=== PATIENT | male | born 1970 | race Caucasian/White ===

== ENCOUNTER 2020-12-12 10:04 | Outpatient (CLI) | payer BC, SELFPAY ==
--- NOTE | 2020-12-12 10:19 | US_ITS ---
WS: [id number] RIGHT UPPER QUADRANT ULTRASOUND HISTORY: EPIGASTRIC ABDOMINAL PAIN/ELEVATED ALT MEASUREMENT COMPARISON: None available. Liver: 12.7 cm in length. Normal size liver with no bile duct dilatation. There are numerous ill-defi sudhir slightly hypoechoic and hyperechoic lesions throughout the liver. Some of these lesions are causi ng bulging of the liver contour. Hepatic masses range in size from 1 cm with the largest measuring 3. 2 x 3.1 x 2.3 cm along the anterior surface of the liver. RIGHT hepatic lesion. Gallbladder: Normally distended gallbladder with no stones or wall thickening. CBD: Not visualized. No bile duct dilatation is evident. Pancreas: Poorly visualized due to large amount of shadowing from the GI tract. Right kidney: 12.3 cm in length. Normal size and echogenicity. No hydronephrosis or mass. Aorta and IVC: Unremarkable abdominal aorta and IVC. No ascites. US/US abdomen limited 83920 IMPRESSION: 1. Multiple hepatic lesions with the largest measuring 3.2 x 3.1 x 2.3 cm. Hig hly suspicious for metastatic liver disease. Recommend follow-up CT abdomen and pelvis with IV and oral contrast. 2. Negative gallbladder.
== END 2020-12-12 10:05 | disposition home or self-care (01) ==
PROVIDERS: PCP Physician Assistant Medical; Visit Provider Family Medicine
DX: R10.13 Epigastric pain (principal); R74.01 Elevation of levels of liver transaminase levels; K76.9 Liver disease, unspecified
CPT/HCPCS: 76705

== ENCOUNTER → 2020-12-19 13:06 | Outpatient (BNVA) | payer BC, SELFPAY | PROVIDERS: PCP Physician Assistant Medical; Visit Provider Surgery | DX: R10.9 Unspecified abdominal pain (principal); Z20.822 Contact with and (suspected) exposure to COVID-19 | CPT/HCPCS: 87635 ==

== ENCOUNTER 2020-12-24 06:10 | Day surgery (SDC) | payer BC, SELFPAY ==
--- NOTE | 2020-12-24 06:40 | W.PM.OPSUD ---
Surgery/Procedure H&P Update DATE OF PROCEDURE: December 24, 2020 DATE H&P PERFORMED: 12/19/20 H&P UPDATE INFORMATION: I have reviewed H&P completed within last 30 days, I have examined patient prior to procedure and No changes to prior documentation PREOP DIAGNOSIS: Bleeding per rectum And change in bowel habits PRIMARY INDICATION FOR PROCEDURE: The same PLANNED PROCEDURE: Operation Date: 12/24/20 07:00 Proposed Procedures p EGD 86855 R10.9(Not Applicable) - Tyrell Dickson MD s Colonoscopy 04469 R19.7(Not Applicable) - Tyrell Dickson MD
[2020-12-24] MEDS: sodium chloride 0.9% 1,000 ML 30 ML IV (06:41)
[2020-12-24 06:46] VITALS: BP 132/80; PULSE 70; RESP 18; TEMP 37; O2SAT 95
--- NOTE | 2020-12-24 06:49 | ANES.PREANE2 ---
Pre-Anesthetic Assessment Pre-Anesthetic Assessment: Height/Weight: Height 1.78 m Weight 106.594 kg Preop Diagnosis: Bleeding per rectum And change in bowel habits Proposed Procedure: Operation Date: 12/24/20 07:00 Proposed Procedures p EGD 78728 R10.9(Not Applicable) - Tyrell Dickson MD s Colonoscopy 84880 R19.7(Not Applicable) - Tyrell Dickson MD Familial anesthetic complications: none Was Beta Slava taken within 24 hours: N/A Was Clonidine taken within 24 hours: N/A Last Intake: 22:00 Social: Social History: No alcohol and No tobacco Exam: Pre-Anes Outpt Exam: alert, oriented x 3, clear to auscultation bilaterally and regular rate & rhythm Airway: Submandibular: WNL Cervical ROM: WNL MP: 3 Dentition: Full Pulmonary: Pulmonary: None reported CV/HEM: CV/HEM: HTN : : None reported Hepatic: Hepatic: None reported GI: GI: GERD (controlled) Metabolic: Metabolic: None reported Musc/skel: Musc/skel: None reported Neuropsych: Neuropsych: None reported Anesthetic Plan: ASA status: 2 Anesthesia: MAC Meds/Allergies Current Medications: Current Medications Generic Name Dose Route Start Last Admin Trade Name Freq PRN Reason Stop Dose Admin Sodium Chloride 1,000 mls @ 30 ml s/hr 12/24/20 06:30 12/24/20 06:41 Sodium Chloride 0.9% IV 12/25/20 06:29 30 mls/hr .Q24H MARY Administration Data Anesthesia Cardiac Studies: No Data to Display
[2020-12-24 07:34] VITALS: BP 101/63; PULSE 67; RESP 16; TEMP 36.3; O2SAT 96
[2020-12-24 07:50] VITALS: BP 98/65; PULSE 61; RESP 16; O2SAT 96
--- NOTE | 2020-12-24 08:13 | ANE.PACU2 ---
Inpatient post-anesthesia follow up: Airway intact: Yes Vital signs: Temperature 97.3 F Pulse Rate 61 Respiratory Rate 16 Blood Pressure 98/65 Pulse Oximetry 96 Oxygen Delivery Me thod Room Air Oxygen Flow Rate Fraction of Inspir ed Oxygen Hydration adequate: Yes Nausea and vomiting: No Pain level: 1 Mental status: Baseline
[2020-12-24 08:25] LABS: Carcinoembryonic Antigen 16.6 ng/mL (0.0-4.7); Tumor Marker Alpha Fetoprotein 1.3 ng/mL (0-8.3)
[2020-12-24 08:54] LABS: Cancer Antigen 19 9 1.14 U/mL (0-35)
[2020-12-25 12:26] LABS: H. Pylori / CLO Test Negative
[2020-12-31 13:13] LABS: Miscellaneous Test See Scanned Lab Rpt
== END 2020-12-24 08:13 | disposition home or self-care (01) ==
PROVIDERS: PCP Physician Assistant Medical; Visit Provider Surgery
PROC: 0DJ08ZZ Inspection of Upper Intestinal Tract, Via Natural or Artificial Opening Endoscopic (ICD-10-PCS; CPT 43235; principal; 2020-12-24 07:00)
PROC: 0DJD8ZZ Inspection of Lower Intestinal Tract, Via Natural or Artificial Opening Endoscopic (ICD-10-PCS; CPT 45330; 2020-12-24 07:00)
DX: K62.5 Hemorrhage of anus and rectum (principal); R19.4 Change in bowel habit; K29.70 Gastritis, unspecified, without bleeding; I10 Essential (primary) hypertension
CPT/HCPCS: 43239; 45331; 45335; 82105; 82378; 86301; 87077; 88305; 88360; 96360; J7030

== ENCOUNTER 2020-12-26 10:17 | Outpatient (CLI) | payer BC, SELFPAY ==
--- NOTE | 2020-12-26 17:03 | ONC CON_ITS ---
Dr. Iglesias New Patient Note Patient: Bob Rosario Unit #: [id number]: 1970 Dicatated By: Parker Iglesias M.D.Date of Visit: Dec 26, 2020 Onc MED New Patient/Consult Referring Physician: CHRISTY RICHARDSON Chief Complaint: Colon cancer. 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 He has been in good general health. On 12/07/2020 he had a scheduled follow-up visit with Dr. Monae. At that time he reported recent onset of pain in the epigastric area, and he also had diarrhea with it. He had otherwise been having constipation for a year or more, though intermittently, along with intermittent red blood in the stool. A right upper quadrant abdominal ultrasound on 12/12/2020 showed multiple hepatic lesions, the largest along the anterior surface of the liver measuring 3.2 x 3.1 x 2.3 cm, suspicious for metastatic disease. CT abdomen/pelvis on 12/17/2020 again showed multiple hypoattenuating lesions in the liver, primarily within the right hepatic lobe, consistent with metastases. A 7 mm exophytic cortical nodule on the anterior aspect of the left kidney was too small to fully characterize. Also noted was a small fat-containing right inguinal hernia and prostatomegaly. There is no lymphadenopathy by size criteria. He was referred to Dr. Dickson. He underwent EGD and colonoscopy on 12/24/2020. The EGD showed evidence of gastritis but without evidence of mucosal bleeding. Colonoscopy showed a partially obstructing, large size, malignant appearing mass in the distal sigmoid colon measuring 4 x 4 cm. The scope was not able to be advanced beyond that lesion. A semipedunculated polyp measuring 2 mm x 2 mm was noted in the rectum and was excised by cold forcep. Pathology on the rectal polyp showed tubular adenoma. Biopsy of the rectosigmoid mass showed well differentiated adenocarcinoma. His laboratory studies from 12/24/2020 included a CEA level which was elevated at 16.6 ng/mL. AFP was normal at 1.3 ng/mL and the CA 19-9 was normal at 1.14 U/mL. He is seen for further management. He says he has been feeling good. Recently he has had mild fatigue, but he still has normal activity. ECOG score is zero. His appetite is good. He has no fever or night sweats. He has no shortness of breath, cough, or chest pain. He has not had any further abdominal pain. He does have constipation, and he has not had a bowel movement since his colonoscopy prep. He has no complaints. He has no significant joint or bone pain. He does report having headache off and on. He has no numbness/paresthesia or other focal neurologic symptoms. Past Medical History: His medical history includes hyperlipidemia, hypertension, and prediabetes. Past Surgical History: His surgical/procedural history includes excision of cyst from the neck in 2018, arthroscopic knee surgery bilaterally in 2011, and tonsillectomy in 1975. Medications: Lisinopril (5 mg) Tablet Oral b.i.d., Pantoprazole Sodium (40 mg) Tablet, enteric coated Oral b.i.d. Allergies: Penicillins Social History: Mr. Rosario is . 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 He is a non-smoker. He has had social alcohol use. Family History: Mother of breast cancer at age 50. His father, brother, and a sister are all in good health. There is no history of colon cancer or colon polyps in the family. Review Of Symptoms: Constitutional - He recently has had some mild fatigue, but he still has normal activity tolerance. Appetite is good and weight is stable. No fever, night sweats, or hot flashes. ECOG score is 0, Eyes - No change in vision, ENMT - No hearing loss or tinnitus. No hearing loss or tinnitus. No sinus congestion/drainage. No mouth sores. No sore throat or difficulty swallowing, Hematologic/Lymphatic - No abnormal bruising, Respiratory - No shortness of breath. No cough. No pleuritic pain or hemoptysis, Cardiovascular - No angina pain. No palpitations, Gastrointestinal - No nausea or vomiting. He recently had sharp pain just below the sternum. He is now on treatment with Protonix. He had some diarrhea in association with the abdominal pain. He has otherwise been having constipation and difficulty moving his bowels. He has had no bowel movement since his colonoscopy prep. For the past 6 to 8 months he has intermittently had small amounts of red blood in the stool, Genitourinary (M) - No dysuria or hematuria. No urinary frequency. No urgency or incontinence, Musculoskeletal - No joint or bone pain, Integumentary - No skin rash or other skin changes, Neurologic - He has had headache off and on. He occasionally has brief dizziness, mainly in the mornings. No numbness or tingling. No other focal neurologic symptoms, Psychiatric - Recently he has had some anxiety. No depression. No insomnia. Vital Signs: Performed on Dec 26, 2020 10:47: 0, 0, 0.00, 0.00 sq.m, 96 %, 55 /min (LOW), 18 /min, 125/73 mm(hg), 97.5 F (LOW), and 230.6 lbs (HIGH). Physical Examination: Constitutional - He appears to be in good general health, Eyes - Sclerae nonicteric. Conjunctivae clear, ENMT - No lesions noted in the oral cavity, Neck - No mass or thyromegaly, Hematologic/Lymphatic - No cervical, clavicular, or axillary adenopathy, Respiratory - Lungs are clear with good air movement bilaterally, Cardiovascular - Heart rhythm is regular. There is no murmur, gallop, or rub noted, Abdomen - Soft and non-tender. Liver and spleen are not enlarged. There is no abdominal mass or ascites noted and there is no inguinal adenopathy, Back/Spine - No spine or CVA tenderness noted, Extremities - No edema. Pedal pulses are palpable bilaterally, Integumentary - No rashes. No suspicious skin lesions noted, Neurologic - No focal neurologic deficits noted. Problem List: 1. Well differentiated adenocarcinoma involving the sigmoid colon, by clinical evaluation stage ROMELIA (Tx, Nx, M1a) with CT evidence of multiple metastatic lesions in the liver. 2. Hypertension. 3. Hyperlipidemia. 4. Prediabetes. 5. He had evidence of gastritis by EGD. Problems Addressed with this Encounter and Plan: Patient with well differentiated adenocarcinoma involving the sigmoid colon, by clinical evaluation stage ROMELIA (Tx, Nx, M1a) with CT evidence of multiple metastatic lesions in the liver. He has had constipation and intermittent rectal bleeding associated with the primary tumor, and by colonoscopy the primary tumor was large-sized and partially obstructing. The scope was not able to be passed beyond the mass. The CT findings and CT images were reviewed with the patient and his . I also reviewed the colonoscopy findings and pathology results. We discussed the clinical implications. He has a primary malignancy in the rectosigmoid colon and he has CT evidence of metastatic involvement in the liver. We discussed the fact that in the setting of multiple metastatic lesions this is not considered to be a curable malignancy. Immediate surgery would be indicated for high-grade obstruction, but I would otherwise recommend initiating systemic therapy with modified FOLFOX chemotherapy in combination with Avastin. Surgery may be considered at a later time depending on his response to the chemotherapy and his further clinical course. I reviewed anticipated side effects with the chemotherapy which may include nausea/vomiting, diarrhea, stomatitis, alopecia, fatigue, low blood counts, and neuropathy, among others. There is risk of hypertension, proteinuria, and bowel perforation with the Avastin, which will be added with the 2nd cycle to minimize the perforation risk. At this point he will return to Dr. Dickson for placement of Port-A-Cath venous access device. In the meantime, he will be scheduled for staging PET/CT. I also will request additional pathologic studies, which will include testing for microsatellite instability, PD-L1 assessment, and a next generation sequencing study. I anticipate starting his chemotherapy sometime next week. Signed By: Parker Iglesias M.D. <<Signature on File>>
== END 2020-12-26 10:18 | disposition home or self-care (01) ==
LOC: ONCMED 10:21
PROVIDERS: PCP Physician Assistant Medical; Visit Provider Internal Medicine Medical Oncology
DX: C19 Malignant neoplasm of rectosigmoid junction (principal); C78.7 Secondary malignant neoplasm of liver and intrahepatic bile duct; I10 Essential (primary) hypertension; E78.5 Hyperlipidemia, unspecified; R73.03 Prediabetes; K29.70 Gastritis, unspecified, without bleeding; Z79.899 Other long term (current) drug therapy
CPT/HCPCS: 87635; 99205

== ENCOUNTER 2020-12-31 09:39 | Day surgery (SDC) | payer BC, SELFPAY ==
--- NOTE | 2020-12-31 | SCC_ITS ---
Procedure Done: Right subclavian vein PowerPort placement 11.4 seconds of fluoroscopic guidance, for a cumulative dose of 3.96 mGy, was provided to Dr. Dickson by the radiology department. C-arm images of the chest were saved for the patient's permanent record. [facility], [place]
--- NOTE | 2020-12-31 09:46 | SC_ITS ---
WS: [id number] C-ARM RADIOGRAPHS CHEST; 2 IMAGES HISTORY: Powerport Placement COMPARISON: None available. Intraoperative imaging during Mediport placement. Tip in the distal SVC. SC/C-arm FL for CVA [id number] IMPRESSION: Mediport tip in the distal SVC.
[2020-12-31 10:11] VITALS: BP 132/91; PULSE 75; RESP 18; TEMP 36.6; O2SAT 94
--- NOTE | 2020-12-31 10:18 | ANES.PREANE2 ---
Pre-Anesthetic Assessment Pre-Anesthetic Assessment: Height/Weight: Height 1.78 m Weight 106.594 kg Temp Pulse Resp BP Pulse Ox 97.8 F 75 18 132/91 94 12/31/20 10:11 12/31/20 10:11 12/31/20 10:11 12/31/20 10:11 12/31/20 10:11 Preop Diagnosis: Colon Cancer Proposed Procedure: Operation Date: 12/31/20 11:20 Proposed Procedures p Portacath Placement 83532 k63.89(Not Applicable) - Tyrell Dickson MD Familial anesthetic complications: Requires higher amount to go to sleep Was Beta Slava taken within 24 hours: N/A Was Clonidine taken within 24 hours: N/A Last intake: Intake Last Liquid Date 12/30/20 Last Liquid Time 22:00 Last Solid Date 12/30/20 Last Solid Time 22:00 Social: Social History: No alcohol and No tobacco Exam: Pre-Anes Outpt Exam: alert, oriented x 3, clear to auscultation bilaterally and regular rate & rhythm Airway: Cervical ROM: WNL MP: 3 Dentition: Full CV/HEM: CV/HEM: HTN GI: GI: GERD Anesthetic Plan: ASA status: 2 Anesthesia: MAC Risk of > 500 ml blood loss (7ml/kg in children): No Data Anesthesia Cardiac Studies: No Data to Display
[2020-12-31] MEDS: sodium chloride 0.9% 1,000 ML 30 ML IV (10:24)
--- NOTE | 2020-12-31 10:45 | W.PM.OPSUD ---
Surgery/Procedure H&P Update DATE OF PROCEDURE: December 31, 2020 DATE H&P PERFORMED: 12/19/20 H&P UPDATE INFORMATION: I have reviewed H&P completed within last 30 days, I have examined patient prior to procedure and Changes to prior documentation as noted here (Patient is requiring Port-A-Cath placement to start chemotherapy) CHANGES TO PREVIOUS DOCUMENTATION: Plan of care; After thorough history physical examination and reviewing the chart and reviweing the images iwth my personal intrepretation.I counseled the patient for Port-A-Cath placement, indications, risks including pneumothorax that may require Chest tube(s) placement and potential injury of major vascular structures that may require Thoractomy, benefits,indications and alternatives were all discussed with the patient, patient understands and is interested to proceed. Rationale was carefully and clearly discussed with the patient.Appropriate informed consent have been reviewed and signed. PREOP DIAGNOSIS: Colon Cancer PRIMARY INDICATION FOR PROCEDURE: The same PLANNED PROCEDURE: Operation Date: 12/31/20 11:20 Proposed Procedures p Portacath Placement 99682 k63.89(Not Applicable) - Tyrell Dickson MD
[2020-12-31] MEDS: clindamycin 900 MG/50 ML PREMIX 100 MG IV (12:00)
[2020-12-31] MEDS: heparin, porcine 1,000 unit/mL INJ 10 mL 10000 UNIT IRRIGATION (12:32)
[2020-12-31] MEDS: lidocaine 2% INJ 20 mL INJECTION (12:33)
--- NOTE | 2020-12-31 12:38 | PM.OP ---
Operative Report Date of procedure: December 31, 2020 Pre-op Diagnosis: Colon Cancer Post-op diagnosis: same Procedure Done: Right subclavian vein PowerPort placement Under fluoroscopic guidance was done by me through the procedure Implants: Right subclavian vein PowerPort placed Surgeon: Tyrell Dickson Manager Assisted Living: agricultural research technologistnathalie Shirley Circulating nurse Meena Anesthesia: MAC (Jayce Hayes) Estimated blood loss (mL): 5 Condition: stable Disposition: same day Brief History: 50 years old gentleman with recently diagnosed with history of colon cancer requiring PowerPort to start neoadjuvant chemotherapy. Full H&P and informed consent per chart. Procedure: Patient was identified in the holding area and taken to the operative room and placed in supine position IV propofol was given by the anesthesia provider ,both arms were tucked,Time-out was done verifying the patient's name/date of /planned procedure and destination after the procedure, all were in agreement. SCDs confirmed to be functioning, preoperative antibiotics administered per protocol, and beta hermila protocol was confirmed, appropriate positioning of the patient was done by me. Medications were reviewed to assess for anticoagulant usage. Risks and benefits and prevention of central line associated blood stream infection (CLABSI) were discussed with the patient/CPOA, and a consent was obtained. Monitors were in place and monitored throughout the procedure. All necessary supplies were available prior to start. Hand hygiene was completed prior to starting. Maximum barrier technique was utilized including a sterile gown, sterile gloves with a hat and mask. Site was was prepped with [chlorhexidine] and a full body drape was placed. 5 mL of 2% lidocaine was injected into the skin with a 25 gauge needle. Prep& drape was done under the usual sterile technique, lidocaine 2% was injected at the site of the stick, started by right subclavian vein stick that retrieved venous blood was obtained from the first stick, a guidewire was then threaded and under the guidance of fluoroscopy position was confirmed to be in the IVC and my interpretation, there was no PVC changes, at that point the guidewire was secured to the drapes with a hemostat and the needle was taken out, attention was then deviated towards creation of a pocket for the port were lidocaine 2% was injected using an 15 blade knife skin incision was created dissection using the Bovie to create a pocket for the Port-A-Cath to be accommodated, hemostasis was secured, after the port being appropriately flushed it was inserted into the pocket and a tunneler was used to accommodate the catheter of the port cath to be delivered through the incision first created at the site of the stick, at that point under fluoroscopy an estimated length was measured for the catheter and was cut at the designed level, followed by that a dilator with the sheath introduced onto the guidewire the dilator and the wire were retrieved and the catheter of the port was introduced via the sheath where it was peeled off and the catheter maintained to be in the SVC that was confirmed with fluoroscopy, and the fluoroscopy interpretation was done by me throughout the entire procedure,yet A confirmation was obtained from Dr. Yang radiologist about the tip of the catheter that looked to be in appropriate in good position via the phone was done. The port was kept secured in its pocket,3-0 Vicryl deep subdermal interrupted sutures, skin was then closed by 4-0 Monocryl as subcuticular closure. The stick site was closed by 3-0 Vicryl and 4-0 Monocryl and Dermabond was used followed by dressing. Patient tolerated the procedure well was taken to the recovery area Count was correct at the end of the procedure I was present for the whole entire procedure Position of the catheter was checked with a postoperative chest x-ray and it was in good position without evidence of pneumothorax
--- NOTE | 2020-12-31 12:41 | XR_ITS ---
WS: [id number] Exam: XR chest 1V portable [id number] Date/Time of Exam: 12/31/2020 12:41 PM Reason For Exam: Status post right subclavian vein PowerPort placement The lungs are fully expanded. No infiltrates or pleural effusions. Mild plaque atelectasis in the lef t base. A right subclavian port has been placed and ends at the cavoatrial junction. Unremarkable car diomediastinal structures and regional bony elements. XR/XR chest 1V portable [id number] IMPRESSION: 1. Right-sided subclavian port placement ending at the cavoatrial junction. 2. No acute process.
[2020-12-31 12:47] VITALS: BP 126/72; PULSE 75; RESP 18; TEMP 36.8; O2SAT 92
[2020-12-31 12:50] VITALS: BP 120/77; PULSE 76; RESP 16; O2SAT 93
[2020-12-31 12:55] VITALS: BP 121/81; PULSE 66; RESP 18; TEMP 36.8; O2SAT 93
[2020-12-31 13:00] VITALS: BP 114/85; PULSE 74; RESP 18; TEMP 36.8; O2SAT 93
[2020-12-31 13:12] VITALS: BP 153/92; PULSE 72; RESP 18; TEMP 36.6; O2SAT 98
--- NOTE | 2020-12-31 18:59 | ANE.PACU2 ---
Inpatient post-anesthesia follow up: Airway intact: Yes Vital signs: Temperature 97.8 F Pulse Rate 72 Respiratory Rate 18 Blood Pressure 153/92 Pulse Oximetry 98 Oxygen Delivery Me thod Room Air Oxygen Flow Rate Fraction of Inspir ed Oxygen Hydration adequate: Yes Nausea and vomiting: No Pain level: 3 Mental status: Baseline
== END 2020-12-31 13:45 | disposition home or self-care (01) ==
PROVIDERS: PCP Physician Assistant Medical; Visit Provider Surgery
PROC: (CPT 36561; principal; 2020-12-31 11:00)
DX: C34.90 Malignant neoplasm of unspecified part of unspecified bronchus or lung (principal); I10 Essential (primary) hypertension
CPT/HCPCS: 36561; 71045; 77001; C1788; J1644; J2250; J2704; J3010; J3490; J7030

== ENCOUNTER 2021-01-10 18:48 | Emergency (ER) | payer BC, SELFPAY ==
[2021-01-10] VITALS (7 sets, daily range): BP systolic 122–134; BP diastolic 71–85; PULSE 82–100; RESP 16–18; TEMP 38.4; O2SAT 96–99; BMI 32.5
--- NOTE | 2021-01-10 19:46 | CTR_ITS ---
PROCEDURE INFORMATION: Exam: CT Abdomen And Pelvis With Contrast Exam date and time: 01/10/2021 7:51 PM Age: 50 years old Clinical indication: Abdominal pain; Localized; Patient HX: Lower abd pain, constipation TECHNIQUE: Imaging protocol: Computed tomography of the abdomen and pelvis with contrast. Axial, coronal and sagittal reformatted images were created and reviewed. Radiation optimization: All CT scans at this facility use at least one of these dose optimization techniques: automated exposure control; mA and/or kV adjustment per patient size (includes targeted exams where dose is matched to clinical indication); or iterative reconstruction. Contrast material: OMNI 300; Contrast volume: 95 ml; Contrast route: INTRAVENOUS (IV); COMPARISON: CT abdomen pelvis w con* [id number] 12/17/2020 11:00 AM RADIATION DOSE METRICS: Total DLP (mGy-cm): 1880.41 FINDINGS: Liver: Innumerable low-density hepatic lesions, slightly increased in size and number since the prior study. Gallbladder and bile ducts: No radiodense gallstones. No biliary ductal dilatation. Pancreas: Unremarkable. Spleen: Unremarkable. Adrenal glands: Normal. No mass. Kidneys and ureters: Indeterminate 9 mm exophytic isodense left renal density, similar to prior. No radiodense calculi. No hydronephrosis. Stomach and bowel: Focal area of sigmoid wall thickening with associated luminal narrowing and inflammatory change. No obstruction. No pneumatosis. Appendix: Normal. Intraperitoneal space: Moderate amount of extraluminal gas adjacent to the sigmoid colon. No ascites. No organized collection. Vasculature: Unremarkable. No aneurysm. Lymph nodes: No pathologically enlarged lymph nodes. Urinary bladder: Unremarkable as visualized. Reproductive: Unremarkable. Bones/joints: No acute osseous abnormality. Mild degenerative changes. Soft tissues: Unremarkable. CT/CT abdomen pelvis w con* [id number] IMPRESSION: 1. Sigmoid perforation, likely secondary to underlying colonic malignancy. 2. Hepatic metastatic disease with evidence of slight interval progression. 3. Additional findings, as above. Radiation Dose CTDIVOL = (mGy): DLP = 1880.41 (mGy-cm)
--- NOTE | 2021-01-10 19:53 | ED_ITS ---
HPI - Abdominal Pain General: Chief Complaint: Abdominal Pain Stated Complaint: ab pain Time Seen by Provider: 01/10/21 19:42 Source: patient Mode of arrival: ambulatory Limitations: no limitations History of Present Illness: HPI narrative: 50-year-old male who has a history of sigmoid colon cancer recently diagnosed last month. He starts chemotherapy next week at [facility]. He states that yesterday was having constipation took mag citrate for having bowel movements. He states he started having abdominal pain after that though. He states that his pain is been diffuse in nature and rates it a 5-6 out of 10. He denies any worsening improving factors. He is also been febrile does have a fever here of 101.2. He denies any vomiting. He states he has had some difficulty urinating and some pain with urination. No cough. No sore throat. Associated Symptoms: Reports constipation and fever(s); Denies dysuria Review of Systems Const: Reports: fever(s) Eyes: Denies: blurry vision or eye discomfort ENMT: Denies: throat pain or dental pain Card: Denies: chest pain Resp: Denies: dyspnea GI: Reports: abdominal pain and constipation : Denies: dysuria Musc: Denies: neck pain or back pain Skin/Breast: Denies: rash Neuro: Denies: headache(s) Psych: Denies: depression Jemal/Lymph: Denies: easy bruising All/Imm: Denies: urticaria Physical Exam Const: COMMON NORMALS: no acute distress, patient oriented x3 and healthy appearing HENMT: COMMON NORMALS: normocephalic and atraumatic HEAD & SCALP: normocephalic and atraumatic Eye: COMMON NORMALS: Equal, round and reactive pupils present and EOMs intact bilaterally PUPIL: Yes Equal, round and reactive pupils present Neck/C-Spine: COMMON NORMALS: full ROM and supple Chest: COMMONS NORMALS: normal inspection of the chest and normal palpation of entire chest wall Resp: COMMON NORMALS: normal respiratory effort, No retractions, No use of accessory muscles and clear to auscultation bilaterally AUSCULTATION: clear to auscultation bilaterally Cardio: COMMON NORMALS: regular rate, regular rhythm and No murmurs present (Cardio) RATE: regular rate RHYTHM: regular rhythm GI: COMMON NORMALS: Normal to inspection, nondistended, normoactive bowel sounds present, Soft to palpation and no masses PALPATION: Yes Soft to palpation OTHER: mild diffuse tenderness Extremity: COMMON NORMALS: normal to inspection and full ROM Neuro: COMMON NORMALS: patient oriented x3, moves all extremities and no focal motor deficits Psych: COMMON NORMALS: mental status grossly normal, Normal thought process present and cooperative THOUGHT PROCESS: Normal thought process present Skin: COMMON NORMALS: no rashes or lesions noted and no wounds GENERAL SKIN EXAM: no rashes or lesions noted Course Vital Signs: Vital signs: Vital Signs Temperature 101.2 F H 01/10/21 18:58 Pulse Rate 82 01/10/21 20:46 Respiratory Rate 16 01/10/21 20:47 Blood Pressure 131/74 01/10/21 20:46 Pulse Oximetry 96 01/10/21 20:47 MDM - Abdominal Pain MDM Narrative: Medical decision making narrative: Bob presents here with a bowel perforation likely from his tumor. He requested transfer to [place] where he gets his cancer care. I did speak to physician there and will transfer there emergently. Patient's lactate here has been normal his blood pressures been normal as well. Patient started on IV antibiotics and will transfer to [place]. Lab Data: Labs: Lab Results 01/10/21 01/10/21 01/10/21 Range/Units 19:55 19:55 20:00 WBC 14.5 H (4.0-10.0) 10^3/ uL RBC 4.76 (4.1-5.3) 10^6/u L Hgb 14.1 (11.7-16.6) g/dL Hct 43.8 (42.0-52.0) % MCV 92.0 (80-94) fL MCH 29.6 (28.0-34.0) pg MCHC 32.2 (30.0-36.0) g/dL RDW 11.9 L (12.1-15.1) % Plt Count 261 (130-400) 10^3/c mm MPV 10.1 (7.4-10.4) fL Neut % (Auto) 73.3 % Lymph % (Auto) 17.1 % [place] % (Auto) 8.1 % Eos % (Auto) 0.7 % Baso % (Auto) 0.5 % Neut # (Auto) 10.64 H (1.8-7.7) 10^3/u L Lymph # (Auto) 2.5 (0.8-4.8) 10^3/u L [place] # (Auto) 1.2 H (0.2-0.9) 10^3/u L Eos # (Auto) 0.1 (0.0-0.8) 10^3/u L Baso # (Auto) 0.1 (0.0-0.1) 10^3/u L Nucleated RBC % (a uto) 0 % Nucleated RBCs # 0.0 /100WBC Sodium 132 L (136-145) mmol/L Potassium 4.0 (3.5-5.1) mmol/L Chloride 95 L (98-107) mmol/L Carbon Dioxide 26 (22-29) mmol/L Anion Gap 15.0 (5-19) BUN 18 (6-20) mg/dL Creatinine 0.7 (0.7-1.2) mg/dL GFR Calculation 119.9 (90-130) mL/min Glucose 97 (65-115) mg/dL Calculated Osmolal ity 276 L (285-295) mOsm/k g Lactate 0.7 (0.5-2.2) mmol/L Calcium 9.2 (8.5-10.5) mg/dL Total Bilirubin 1.2 (0.15-1.2) mg/dL AST 17 (0-40) U/L ALT 24 (0-41) U/L Alkaline Phosphata se 107 (40-130) IU/L Total Protein 7.2 (6.6-8.7) g/dL Albumin 4.0 (3.5-5.2) g/dL Globulin 3.2 (1.3-4.6) g/dL Lipase 14 (13-60) U/L Critical Care Time Critical Care Time: Critical Care Time: Yes Total Critical Care Time: 35 Attestation: This case had a high probability of a clinically significant, sudden, or life threatening deterioration of this patient's condition which required my full and direct attention, intervention and personal management. Discharge Plan Discharge Patient Disposition: Xfer Short-Term Hosp Clinical Impression: Bowel perforation Condition: Stable Referrals: Kaiden Ramos [Primary Care Provider] - Coding Level of Care Code ED Fire Behavior Analyst for Chg Fwd Exam Comprehensive
[2021-01-10] MEDS: iohexol 300 mg/mL 100 mL Btl IV (20:00)
[2021-01-10] MEDS: sodium chloride 0.9% 1,000 ML 999 ML IV ×2 (20:05→21:03)
[2021-01-10] MEDS: ondansetron 2 mg/ML SDV 2 mL 4 MG IVP (20:06)
[2021-01-10] MEDS: morphine 4 mg/mL SDV 1 mL IVP (20:06)
[2021-01-10] MEDS: acetaminophen 325 mg Tablet 650 MG PO (20:14)
[2021-01-10 20:15] LABS: Basophils # 0.1 10^3/uL (0.0-0.1); Basophils % 0.5 %; Eosinophils # 0.1 10^3/uL (0.0-0.8); Eosinophils % 0.7 %; Hematocrit 43.8 % (42.0-52.0); Hemoglobin 14.1 g/dL (11.7-16.6); Lymphocytes # 2.5 10^3/uL (0.8-4.8); Lymphocytes % 17.1 %; Mean Corpuscular HGB Conc 32.2 g/dL (30.0-36.0); Mean Corpuscular Hemoglobin 29.6 pg (28.0-34.0); Mean Platelet Volume 10.1 fL (7.4-10.4); Monocytes # 1.2 10^3/uL (0.2-0.9); Monocytes % 8.1 %; Neutrophils # 10.64 10^3/uL (1.8-7.7); Neutrophils % 73.3 %; Nucleated Red Blood Cells % 0 %; Platelet Count 261 10^3/cmm (130-400); Red Blood Count 4.76 10^6/uL (4.1-5.3); Red Cell Distribution Width 11.9 % (12.1-15.1); White Blood Count 14.5 10^3/uL (4.0-10.0)
[2021-01-10 20:19] LABS: Chloride 95 mmol/L (98-107); Sodium 132 mmol/L (136-145)
[2021-01-10 20:39] LABS: Alanine Aminotransferase 24 U/L (0-41); Alkaline Phosphatase 107 IU/L (40-130); Aspartate Amino Transferase 17 U/L (0-40); Blood Urea Nitrogen 18 mg/dL (6-20); Calcium 9.2 mg/dL (8.5-10.5); Carbon Dioxide 26 mmol/L (22-29); Globulin 3.2 g/dL (1.3-4.6); Glomerular Filtration Rate 119.9 mL/min (90-130); Glucose 97 mg/dL (65-115); Lipase 14 U/L (13-60); Osmolality Calculated 276 mOsm/kg (285-295); Total Bilirubin 1.2 mg/dL (0.15-1.2); Total Protein 7.2 g/dL (6.6-8.7)
[2021-01-10] MEDS: HYDROmorphone 1 mg/mL INJ 1 mL IVP (20:47)
[2021-01-10] MEDS: aztreonam 2,000 MG in sodium chloride 0.9% (plus) 100 ML 200 MG IV (21:00)
[2021-01-10 21:09] LABS: Lactate (Lactic Acid level) 0.7 mmol/L (0.5-2.2)
[2021-01-10 21:26] LABS: SARS Covid-2 Antigen Negative (Negative)
[2021-01-10] MEDS: vancomycin 1,000 MG in sodium chloride 0.9% 250 ML 250 MG IV (21:38)
== END 2021-01-10 22:08 | disposition short-term general hospital (02) ==
PROVIDERS: Emergency Provider Emergency Medicine; PCP Physician Assistant Medical
DX: K63.1 Perforation of intestine (nontraumatic) (principal)
CPT/HCPCS: 74177; 80053; 83605; 83690; 85025; 87426; 96365; 96367; 96375; 99285; J1170; J2270; J2405; J3370; J3490; J7030; J7050; Q9967

== ENCOUNTER 2021-01-23 21:02 | Emergency (ER) | payer BC, SELFPAY ==
[2021-01-23] VITALS (8 sets, daily range): BP systolic 135–161; BP diastolic 75–99; PULSE 74–80; RESP 16–18; TEMP 36.8; O2SAT 91–96; BMI 32.3
--- NOTE | 2021-01-23 21:03 | XR_ITS ---
WS: [id number] Portable AP semiupright chest, 01/23/2021 Clinical Data: pain Comparison: Portable chest, 12/31/2020 Findings: No nodules, masses or effusions are seen. The heart is normal. The pulmonary vascularity is not increased. No pneumonia or pneumothorax is seen. There is a right infusion port unchanged. XR/XR chest 1V portable [id number] Impression: Negative chest.
--- NOTE | 2021-01-23 21:03 | CTR_ITS ---
PROCEDURE INFORMATION: Exam: CT Abdomen And Pelvis With Contrast Exam date and time: 01/23/2021 9:52 PM Age: 50 years old Clinical indication: Abdominal pain; Generalized; Prior surgery; Surgery date: <1 month; Surgery type: Colon resection with colostomy. ; Patient HX: Severe diffuse abd pain starting this a. M. No output from colostomy bag for 12 plus hours. History of colon cancer. Colon resection with colostomy performed at [facility] on 01/13/2021. TECHNIQUE: Imaging protocol: Computed tomography of the abdomen and pelvis with contrast. Radiation optimization: All CT scans at this facility use at least one of these dose optimization techniques: automated exposure control; mA and/or kV adjustment per patient size (includes targeted exams where dose is matched to clinical indication); or iterative reconstruction. Contrast material: OMNI 300; Contrast volume: 95 ml; Contrast route: INTRAVENOUS (IV); COMPARISON: CT abdomen pelvis w con* [id number] 01/10/2021 8:13 PM RADIATION DOSE METRICS: Total DLP (mGy-cm): 1935.02 FINDINGS: Liver: Multiple hypodense liver lesions are again noted which appear stable compared to the prior study. Gallbladder and bile ducts: Normal. No calcified stones. No ductal dilation. Pancreas: Normal. No ductal dilation. Spleen: Normal. No splenomegaly. Adrenal glands: Normal. No mass. Kidneys and ureters: Normal. No hydronephrosis. Stomach and bowel: Surgical changes of partial colectomy with left lower quadrant colostomy and rectal pouch are appreciated. Multiple loops of small bowel are mildly to moderately dilated in the mid to lower abdomen with apparent transition in the left lower quadrant. Air and fluid are seen in the small bowel distal to the area of transition. Air and stool are present in the colon. Appendix: Normal. Intraperitoneal space: A small amount of free fluid is present in the abdomen and pelvis. No free air. Vasculature: Unremarkable. No abdominal aortic aneurysm. Lymph nodes: Unremarkable. No enlarged lymph nodes. Urinary bladder: Unremarkable as visualized. Reproductive: Unremarkable as visualized. Bones/joints: Unremarkable. No acute fracture. Soft tissues: A small right indirect inguinal hernia containing fat is noted. CT/CT abdomen pelvis w con* [id number] IMPRESSION: 1. Interval colon surgery as noted above. Partial small-bowel obstruction changes are noted. 2. Stable hypodense liver lesions. Radiation Dose CTDIVOL = (mGy): DLP = 1935.02 (mGy-cm)
--- NOTE | 2021-01-23 21:26 | ED_ITS ---
HPI - Abdominal Pain General: Chief Complaint: Fever Stated Complaint: severe abd pain Time Seen by Provider: 01/23/21 21:03 Source: patient Mode of arrival: ambulatory Limitations: no limitations History of Present Illness: HPI narrative: 50-year-old male has a history of colon cancer that recently perforated roughly 2 weeks ago. He was transferred to [place] at the time and had a partial colectomy and a colostomy. States this happened January 13. States has been doing well started having increasing pain throughout the day today. He states he has not had any output of his colostomy bag since since a.m. 6. He states pain is diffuse and rates it an 8 out of 10. He had low-grade fevers at home. He had nausea no vomiting. Denies any worsening improving factors. Associated Symptoms: Reports nausea; Denies chills, diarrhea, dysuria, fever(s) and vomiting Review of Systems Const: Denies: fever(s), chills, body aches or change in appetite Eyes: Denies: blurry vision or eye discomfort ENMT: Denies: throat pain or dental pain Card: Denies: chest pain Resp: Denies: dyspnea GI: Reports: abdominal pain and nausea; Denies: vomiting or diarrhea : Denies: dysuria Musc: Denies: neck pain or back pain Skin/Breast: Denies: rash Neuro: Denies: headache(s) Psych: Denies: depression Jemal/Lymph: Denies: easy bruising All/Imm: Denies: urticaria Physical Exam Const: COMMON NORMALS: no acute distress, patient oriented x3 and healthy appearing HENMT: COMMON NORMALS: normocephalic and atraumatic HEAD & SCALP: normocephalic and atraumatic Eye: COMMON NORMALS: Equal, round and reactive pupils present and EOMs intact bilaterally PUPIL: Yes Equal, round and reactive pupils present Neck/C-Spine: COMMON NORMALS: full ROM and supple Chest: COMMONS NORMALS: normal inspection of the chest and normal palpation of entire chest wall Resp: COMMON NORMALS: normal respiratory effort, No retractions, No use of accessory muscles and clear to auscultation bilaterally AUSCULTATION: clear to auscultation bilaterally Cardio: COMMON NORMALS: regular rate, regular rhythm and No murmurs present (Cardio) RATE: regular rate RHYTHM: regular rhythm GI: COMMON NORMALS: Normal to inspection, nondistended, normoactive bowel sounds present, Soft to palpation and no masses PALPATION: Yes Soft to palpation OTHER: Bowel sounds presentDiffuse tenderness abdominal incision clean dry and intact. Colostomy bag with no stool Extremity: COMMON NORMALS: normal to inspection and full ROM Neuro: COMMON NORMALS: patient oriented x3, moves all extremities and no focal motor deficits Psych: COMMON NORMALS: mental status grossly normal, Normal thought process present and cooperative THOUGHT PROCESS: Normal thought process present Skin: COMMON NORMALS: no rashes or lesions noted and no wounds GENERAL SKIN EXAM: no rashes or lesions noted Course Vital Signs: Vital signs: Vital Signs Temperature 98.3 F 01/23/21 21:23 Pulse Rate 74 01/23/21 21:41 Respiratory Rate 17 01/23/21 23:17 Blood Pressure 135/75 01/23/21 22:31 Pulse Oximetry 93 01/23/21 23:17 MDM - Abdominal Pain MDM Narrative: Medical decision making narrative: Patient presents here with a partial small bowel obstruction after colectomy. NG tube was placed and he had roughly 1-1/2 L out. Patient had just recently had his colectomy done at [facility] due to colon cancer. I spoke to Dr. Maher there and will transfer to [facility] for higher level care for oncology and also for his continued he of care. Patient has been stable here. Lab Data: Labs: Lab Results 01/23/21 01/23/21 01/23/21 Range/Units 21:30 21:30 21:30 WBC 17.3 H (4.0-10.0) 10^3/ uL RBC 5.08 (4.1-5.3) 10^6/u L Hgb 14.8 (11.7-16.6) g/dL Hct 46.8 (42.0-52.0) % MCV 92.1 (80-94) fL MCH 29.1 (28.0-34.0) pg MCHC 31.6 (30.0-36.0) g/dL RDW 12.2 (12.1-15.1) % Plt Count 438 H (130-400) 10^3/c mm MPV 9.6 (7.4-10.4) fL Neut % (Auto) 86.9 % Lymph % (Auto) 7.6 % [place] % (Auto) 4.4 % Eos % (Auto) 0.5 % Baso % (Auto) 0.3 % Neut # (Auto) 14.99 H (1.8-7.7) 10^3/u L Lymph # (Auto) 1.3 (0.8-4.8) 10^3/u L [place] # (Auto) 0.8 (0.2-0.9) 10^3/u L Eos # (Auto) 0.1 (0.0-0.8) 10^3/u L Baso # (Auto) 0.1 (0.0-0.1) 10^3/u L Nucleated RBC % (a uto) 0 % Nucleated RBCs # 0.0 /100WBC PT 14.00 (12.1-14.9) SECO NDS INR 1.04 (0.8-1.2) Sodium 138 (136-145) mmol/L Potassium 4.2 (3.5-5.1) mmol/L Chloride 101 (98-107) mmol/L Carbon Dioxide 26 (22-29) mmol/L Anion Gap 15.2 (5-19) BUN 17 (6-20) mg/dL Creatinine 0.7 (0.7-1.2) mg/dL GFR Calculation 119.9 (90-130) mL/min Glucose 140 H (65-115) mg/dL Calculated Osmolal ity 290 (285-295) mOsm/k g Lactate (0.5-2.2) mmol/L Calcium 9.6 (8.5-10.5) mg/dL Total Bilirubin 0.4 (0.15-1.2) mg/dL AST 27 (0-40) U/L ALT 63 H (0-41) U/L Alkaline Phosphata se 129 (40-130) IU/L Total Protein 7.4 (6.6-8.7) g/dL Albumin 4.2 (3.5-5.2) g/dL Globulin 3.2 (1.3-4.6) g/dL 01/23/21 Range/Units 21:30 WBC (4.0-10.0) 10^3/ uL RBC (4.1-5.3) 10^6/u L Hgb (11.7-16.6) g/dL Hct (42.0-52.0) % MCV (80-94) fL MCH (28.0-34.0) pg MCHC (30.0-36.0) g/dL RDW (12.1-15.1) % Plt Count (130-400) 10^3/c mm MPV (7.4-10.4) fL Neut % (Auto) % Lymph % (Auto) % [place] % (Auto) % Eos % (Auto) % Baso % (Auto) % Neut # (Auto) (1.8-7.7) 10^3/u L Lymph # (Auto) (0.8-4.8) 10^3/u L [place] # (Auto) (0.2-0.9) 10^3/u L Eos # (Auto) (0.0-0.8) 10^3/u L Baso # (Auto) (0.0-0.1) 10^3/u L Nucleated RBC % (a uto) % Nucleated RBCs # /100WBC PT (12.1-14.9) SECO NDS INR (0.8-1.2) Sodium (136-145) mmol/L Potassium (3.5-5.1) mmol/L Chloride (98-107) mmol/L Carbon Dioxide (22-29) mmol/L Anion Gap (5-19) BUN (6-20) mg/dL Creatinine (0.7-1.2) mg/dL GFR Calculation (90-130) mL/min Glucose (65-115) mg/dL Calculated Osmolal ity (285-295) mOsm/k g Lactate 1.4 (0.5-2.2) mmol/L Calcium (8.5-10.5) mg/dL Total Bilirubin (0.15-1.2) mg/dL AST (0-40) U/L ALT (0-41) U/L Alkaline Phosphata se (40-130) IU/L Total Protein (6.6-8.7) g/dL Albumin (3.5-5.2) g/dL Globulin (1.3-4.6) g/dL Imaging Data ^: CT Abd/Pel: Attestation: I personally reviewed and interpreted this imaging study as follows: Radiologist's impression: [facility] [address] [place] [address] CT Scan Report Signed Patient: Bob Rosario Unit #: [id number] : 1970 Age/Sex: 50 / M ADM Date: 01/23/21 Loc: ER Room/Bed: Attending Dr: Ordering Provider/Ordering MD: Irish Richmond MD Date of Service: 01/23/21 Procedure(s): CT abdomen pelvis w con* [id number] Accession Number(s): [id number] Report Number: [id number] PROCEDURE INFORMATION: Exam: CT Abdomen And Pelvis With Contrast Exam date and time: 01/23/2021 9:52 PM Age: 50 years old Clinical indication: Abdominal pain; Generalized; Prior surgery; Surgery date: <1 month; Surgery type: Colon resection with colostomy. ; Patient HX: Severe diffuse abd pain starting this a. M. No output from colostomy bag for 12 plus hours. History of colon cancer. Colon resection with colostomy performed at [facility] on 01/13/2021. TECHNIQUE: Imaging protocol: Computed tomography of the abdomen and pelvis with contrast. Radiation optimization: All CT scans at this facility use at least one of these dose optimization techniques: automated exposure control; mA and/or kV adjustment per patient size (includes targeted exams where dose is matched to clinical indication); or iterative reconstruction. Contrast material: OMNI 300; Contrast volume: 95 ml; Contrast route: INTRAVENOUS (IV); COMPARISON: CT abdomen pelvis w con* [id number] 01/10/2021 8:13 PM RADIATION DOSE METRICS: Total DLP (mGy-cm): 1935.02 FINDINGS: Liver: Multiple hypodense liver lesions are again noted which appear stable compared to the prior study. Gallbladder and bile ducts: Normal. No calcified stones. No ductal dilation. Pancreas: Normal. No ductal dilation. Spleen: Normal. No splenomegaly. Adrenal glands: Normal. No mass. Kidneys and ureters: Normal. No hydronephrosis. Stomach and bowel: Surgical changes of partial colectomy with left lower quadrant colostomy and rectal pouch are appreciated. Multiple loops of small bowel are mildly to moderately dilated in the mid to lower abdomen with apparent transition in the left lower quadrant. Air and fluid are seen in the small bowel distal to the area of transition. Air and stool are present in the colon. Appendix: Normal. Intraperitoneal space: A small amount of free fluid is present in the abdomen and pelvis. No free air. Vasculature: Unremarkable. No abdominal aortic aneurysm. Lymph nodes: Unremarkable. No enlarged lymph nodes. Urinary bladder: Unremarkable as visualized. Reproductive: Unremarkable as visualized. Bones/joints: Unremarkable. No acute fracture. Soft tissues: A small right indirect inguinal hernia containing fat is noted. CT/CT abdomen pelvis w con* [id number] IMPRESSION: 1. Interval colon surgery as noted above. Partial small-bowel obstruction changes are noted. 2. Stable hypodense liver lesions. Discharge Plan Discharge Patient Disposition: Xfer Short-Term Hosp Clinical Impression: Small bowel obstruction Condition: Stable Referrals: Kaiden Ramos [Primary Care Provider] - Coding Level of Care Code ED Freight And Passenger Agent for Chg Fwd Exam Comprehensive
[2021-01-23] MEDS: sodium chloride 0.9% 1,000 ML 999 ML IV ×2 (21:34→22:45)
[2021-01-23] MEDS: HYDROmorphone 1 mg/mL INJ 1 mL IVP ×2 (21:35→23:17)
[2021-01-23] MEDS: ondansetron 2 mg/ML SDV 2 mL 4 MG IVP (21:35)
[2021-01-23 21:43] LABS: Basophils # 0.1 10^3/uL (0.0-0.1); Basophils % 0.3 %; Eosinophils # 0.1 10^3/uL (0.0-0.8); Eosinophils % 0.5 %; Hematocrit 46.8 % (42.0-52.0); Hemoglobin 14.8 g/dL (11.7-16.6); Lymphocytes # 1.3 10^3/uL (0.8-4.8); Lymphocytes % 7.6 %; Mean Corpuscular HGB Conc 31.6 g/dL (30.0-36.0); Mean Corpuscular Hemoglobin 29.1 pg (28.0-34.0); Mean Corpuscular Volume 92.1 fL (80-94); Mean Platelet Volume 9.6 fL (7.4-10.4); Monocytes # 0.8 10^3/uL (0.2-0.9); Monocytes % 4.4 %; Neutrophils # 14.99 10^3/uL (1.8-7.7); Neutrophils % 86.9 %; Nucleated Red Blood Cells % 0 %; Platelet Count 438 10^3/cmm (130-400); Red Blood Count 5.08 10^6/uL (4.1-5.3); Red Cell Distribution Width 12.2 % (12.1-15.1); White Blood Count 17.3 10^3/uL (4.0-10.0)
[2021-01-23 21:51] LABS: INR 1.04 (0.8-1.2)
[2021-01-23] MEDS: iohexol 300 mg/mL 100 mL Btl IV (21:54)
[2021-01-23 21:57] LABS: Alanine Aminotransferase 63 U/L (0-41); Albumin Level 4.2 g/dL (3.5-5.2); Alkaline Phosphatase 129 IU/L (40-130); Aspartate Amino Transferase 27 U/L (0-40); Blood Urea Nitrogen 17 mg/dL (6-20); Calcium 9.6 mg/dL (8.5-10.5); Carbon Dioxide 26 mmol/L (22-29); Chloride 101 mmol/L (98-107); Creatinine Clr Calc Pharmacy 152.7919; Globulin 3.2 g/dL (1.3-4.6); Glomerular Filtration Rate 119.9 mL/min (90-130); Glucose 140 mg/dL (65-115); Lactate (Lactic Acid level) 1.4 mmol/L (0.5-2.2); Osmolality Calculated 290 mOsm/kg (285-295); Sodium 138 mmol/L (136-145); Total Bilirubin 0.4 mg/dL (0.15-1.2); Total Protein 7.4 g/dL (6.6-8.7)
[2021-01-23 22:00] LABS: Anion Gap 15.2 (5-19); Potassium 4.2 mmol/L (3.5-5.1)
[2021-01-23] MEDS: LORazepam 2 mg/mL INJ 1 mL 1 MG IVP (22:44)
[2021-01-24 00:40] VITALS: BP 137/83; PULSE 71; RESP 16; O2SAT 92
[2021-01-24] MEDS: LORazepam 2 mg/mL INJ 1 mL 1 MG IVP (01:03)
[2021-01-24 01:38] VITALS: BP 169/106; PULSE 96; RESP 17; O2SAT 91
[2021-01-24 01:39] VITALS: BP 169/106; PULSE 96; RESP 17; O2SAT 91
[2021-01-24] MEDS: lisinopril 5 mg Tablet PO (01:48)
== END 2021-01-24 02:29 | disposition short-term general hospital (02) ==
PROVIDERS: Emergency Provider Emergency Medicine; PCP Physician Assistant Medical
DX: K56.600 Partial intestinal obstruction, unspecified as to cause (principal); C18.9 Malignant neoplasm of colon, unspecified
CPT/HCPCS: 36415; 71045; 74177; 80053; 83605; 85025; 85610; 87040; 96361; 96374; 96375; 96376; 99285; J1170; J2060; J2405; J7030; Q9967

== ENCOUNTER 2021-09-17 19:57 | Emergency (ER) | payer BC, SELFPAY ==
[2021-09-17 20:07] VITALS: BP 139/83; PULSE 93; RESP 18; TEMP 36.7; O2SAT 94; BMI 33.4
[2021-09-17 21:28] VITALS: TEMP 36.7
--- NOTE | 2021-09-17 21:32 | XRR_ITS ---
PROCEDURE INFORMATION: Exam: XR Chest Exam date and time: 09/17/2021 9:32 PM Age: 51 years old Clinical indication: Prior surgery; Surgery type: Port; Patient HX: Fever x today TECHNIQUE: Imaging protocol: XR of the chest. Views: 1 view. COMPARISON: CR XR chest 1V portable [id number] 01/23/2021 9:36 PM FINDINGS: Tubes, catheters and devices: Stable right Mediport catheter. Lungs: Unremarkable. No consolidation. Pleural spaces: Unremarkable. No pleural effusion. No pneumothorax. Heart/Mediastinum: Unremarkable. No cardiomegaly. Bones/joints: Unremarkable. XR/XR chest 1V portable [id number] IMPRESSION: No acute findings.
--- NOTE | 2021-09-17 21:34 | ED_ITS ---
HPI - Fever General: Chief Complaint: Fever Stated Complaint: high fever went down 99.6 Time Seen by Provider: 09/17/21 21:23 Source: patient Mode of arrival: ambulatory Limitations: no limitations History of Present Illness: HPI Narrative: 51-year-old male has a history of lung cancer currently on chemo states his last chemo treatment was a little over 2 weeks ago states that his neutrophil count has been actually running really well he states that today he had a temperature of 100.9 took a Tylenol temperature since improved has had some fatigue denies any cough denies any vomiting diarrhea denies any pain anywhere. He denies any worsening improving factors no known sick contacts. Associated symptoms: Deny abdominal pain, chest pain, diarrhea, dysuria, headache(s), nausea or vomiting Review of Systems Const: Reports: fever(s), body aches and fatigue Eyes: Denies: blurry vision or eye discomfort ENMT: Denies: throat pain or dental pain Card: Denies: chest pain Resp: Denies: dyspnea GI: Denies: abdominal pain, nausea, vomiting or diarrhea : Denies: dysuria Musc: Denies: neck pain or back pain Skin/Breast: Denies: rash Neuro: Denies: headache(s) Psych: Denies: depression Jemal/Lymph: Denies: easy bruising All/Imm: Denies: urticaria Physical Exam Const: COMMON NORMALS: no acute distress, patient oriented x3 and healthy appearing HENMT: COMMON NORMALS: normocephalic and atraumatic HEAD & SCALP: normocephalic and atraumatic Eye: COMMON NORMALS: Equal, round and reactive pupils present and EOMs intact bilaterally PUPIL: Yes Equal, round and reactive pupils present Neck/C-Spine: COMMON NORMALS: full ROM and supple Chest: COMMONS NORMALS: normal inspection of the chest and normal palpation of entire chest wall Resp: COMMON NORMALS: normal respiratory effort, No retractions, No use of accessory muscles and clear to auscultation bilaterally AUSCULTATION: clear to auscultation bilaterally Cardio: COMMON NORMALS: regular rate, regular rhythm and No murmurs present (Cardio) RATE: regular rate RHYTHM: regular rhythm GI: COMMON NORMALS: Normal to inspection, nondistended, normoactive bowel sounds present, Soft to palpation, non-tender and no masses PALPATION: Yes Soft to palpation Extremity: COMMON NORMALS: normal to inspection and full ROM Neuro: COMMON NORMALS: patient oriented x3, moves all extremities and no focal motor deficits Psych: COMMON NORMALS: mental status grossly normal, Normal thought process present and cooperative THOUGHT PROCESS: Normal thought process present Skin: COMMON NORMALS: no rashes or lesions noted and no wounds GENERAL SKIN EXAM: no rashes or lesions noted Course Vital Signs: Vital signs: Vital Signs Temperature 98.3 F 09/17/21 23:28 Pulse Rate 72 09/17/21 23:28 Respiratory Rate 17 09/17/21 23:28 Blood Pressure 143/89 09/18/21 00:05 Pulse Oximetry 93 09/17/21 23:28 MDM - Fever MDM Narrative: Medical decision making narrative: Patient presents here with a fever he is on chemotherapy and has a history of cancer patient work-up here is all normal no signs of acute infection his absolutely neutrophil count here is normal I spoke to his oncologist therefore blood cultures he is to speak to his oncologist in the morning return if he has another fever he understands agrees to plan. Lab Data: Labs: Lab Results 09/17/21 09/17/21 09/17/21 21:58 21:58 22:29 WBC 6.7 10^3/uL 10^3/ uL (4.0-10.0) RBC 4.06 10^6/uL L 10 ^6/uL (4.1-5.3) Hgb 12.1 g/dL g/dL (11.7-16.6) Hct 38.2 % L % (42.0-52.0) MCV 94.1 fl H fl (80-94) MCH 29.8 pg pg (28.0-34.0) MCHC 31.7 g/dL g/dL (30.0-36.0) RDW 15.6 % H % (12.1-15.1) Plt Count 189 10^3/cmm 10^3 /cmm (130-400) MPV 10.4 fL fL (7.4-10.4) Neut % (Auto) 49.4 % % Lymph % (Auto) 28.1 % % Cooper % (Auto) 16.7 % % Eos % (Auto) 4.6 % % Baso % (Auto) 0.9 % % Neut # (Auto) 3.31 10^3/uL 10^3 /uL (1.8-7.7) Lymph # (Auto) 1.9 10^3/uL 10^3/ uL (0.8-4.8) Cooper # (Auto) 1.1 10^3/uL H 10^ 3/uL (0.2-0.9) Eos # (Auto) 0.3 10^3/uL 10^3/ uL (0.0-0.8) Baso # (Auto) 0.1 10^3/uL 10^3/ uL (0.0-0.1) Nucleated RBC % (a uto) 0 % % Nucleated RBCs # 0.0 /100WBC /100W BC Sodium 136 mmol/L mmol/L (136-145) Potassium 4.3 mmol/L mmol/L (3.5-5.1) Chloride 100 mmol/L mmol/L (98-107) Carbon Dioxide 22 mmol/L mmol/L (22-29) Anion Gap 18.3 (5-19) BUN 14 mg/dL mg/dL (6-20) Creatinine 0.7 mg/dL mg/dL (0.7-1.2) GFR Calculation 119.4 mL/min mL/m in (90-130) Glucose 183 mg/dL H mg/dL (65-115) Calculated Osmolal ity 287 mOsm/kg mOsm/ kg (285-295) Calcium 9.2 mg/dL mg/dL (8.5-10.5) Total Bilirubin 0.5 mg/dL mg/dL (0.15-1.2) AST 36 U/L U/L (0-40) ALT 36 U/L U/L (0-41) Alkaline Phosphata se 103 IU/L IU/L (40-130) Total Protein 6.9 g/dL g/dL (6.6-8.7) Albumin 3.7 g/dL g/dL (3.5-5.2) Globulin 3.2 g/dL g/dL (1.3-4.6) Urine Color Urine Appearance Urine pH Ur Specific Gravit y Urine Protein Urine Glucose (UA) Urine Ketones Urine Blood Urine Nitrate Urine Bilirubin Urine Urobilinogen Ur Leukocyte Lenora ase Urine RBC Urine WBC Ur Squamous Epith Cells Amorphous Sediment Urine Bacteria Urine Mucus Influenza Type A A g Negative (Negative) Influenza Type B A g Negative (Negative) SARS-CoV-2 Ag (Rap id) 09/17/21 09/17/21 22:29 22:40 WBC RBC Hgb Hct MCV MCH MCHC RDW Plt Count MPV Neut % (Auto) Lymph % (Auto) Cooper % (Auto) Eos % (Auto) Baso % (Auto) Neut # (Auto) Lymph # (Auto) Cooper # (Auto) Eos # (Auto) Baso # (Auto) Nucleated RBC % (a uto) Nucleated RBCs # Sodium Potassium Chloride Carbon Dioxide Anion Gap BUN Creatinine GFR Calculation Glucose Calculated Osmolal ity Calcium Total Bilirubin AST ALT Alkaline Phosphata se Total Protein Albumin Globulin Urine Color Yellow (Yellow) Urine Appearance Clear (CLEAR) Urine pH 5 (5-7) Ur Specific Gravit y 1.020 (1.005-1.030) Urine Protein Trace (Negative) Urine Glucose (UA) Trace H (Normal) Urine Ketones Negative (Negative) Urine Blood 2+ H (Negative) Urine Nitrate Negative (Negative) Urine Bilirubin Neg (Negative) Urine Urobilinogen Norm mg/dL mg/dL (Negative) Ur Leukocyte Lenora ase Negative (Negative) Urine RBC 0-4 /hpf H /hpf (0-2) Urine WBC 0-4 /hpf H /hpf (0-5) Ur Squamous Epith Cells 0-4 /hpf H /hpf (0-5) Amorphous Sediment Not Reportable Urine Bacteria Trace /hpf /hpf (NONE) Urine Mucus 1+ /hpf /hpf Influenza Type A A g Influenza Type B A g SARS-CoV-2 Ag (Rap id) Negative (Negative) Imaging Data^: CXR: Attestation: I personally reviewed and interpreted this imaging study as follows: My impression: No acute abnormality Discharge Plan Discharge Patient Disposition: Home Clinical Impression: Fever Qualifiers: Fever type: unspecified Qualified Code(s): R50.9 - Fever, unspecified Condition: Stable Prescriptions: No Action lisinopril 5 mg tablet 5 mg PO BID@0700,2100 RF: 0 pantoprazole 40 mg tablet,delayed release (DR/EC) 40 mg PO DAILY@0700 Qty: 30 RF: 2 ondansetron HCl 8 mg tablet 8 mg PO Q8H PRN (Reason: Nausea And Vomiting (2nd)) RF: 0 lidocaine-prilocaine 2.5-2.5 % cream 1 applic topical . DIRECTED RF: 0 dexamethasone 4 mg tablet See Rx Instructions .ROUTE .COMPLEX RF: 0 docusate sodium [Dulcolax Stool Softener (dss)] 100 mg Capsule 200 mg PO PRN RF: 0 magnesium citrate Solution 296 ml PO PRN RF: 0 lactulose 10 gram/15 mL solution 30 ml PO Q6H PRN (Reason: Constipation) RF: 0 hydrocodone-acetaminophen 5-325 mg tablet 1 tab PO Q6H PRN (Reason: Pain) RF: 0 oxycodone 5 mg tablet See Rx Instructions .ROUTE .COMPLEX RF: 0 enoxaparin 40 mg/0.4 mL syringe See Rx Instructions .ROUTE .COMPLEX RF: 0 Discharge Orders: Discharge ED (Routine); Ordered 09/17/21 Ordered By: Irish Richmond Referrals: Kaiden Ramos [Primary Care Provider] - Discharge Diet: Advance as tolerated Discharge Activity: Resume usual activity Patient Instructions: Fever in Adults (ED) Coding Level of Care Code ED Missile Tracking Technician for Stevo Fwd Exam Comprehensive
[2021-09-17] MEDS: sodium chloride 0.9% 1,000 ML 999 ML IV (21:55)
[2021-09-17 22:02] LABS: Basophils # 0.1 10^3/uL (0.0-0.1); Basophils % 0.9 %; Eosinophils # 0.3 10^3/uL (0.0-0.8); Eosinophils % 4.6 %; Hematocrit 38.2 % (42.0-52.0); Hemoglobin 12.1 g/dL (11.7-16.6); Lymphocytes # 1.9 10^3/uL (0.8-4.8); Lymphocytes % 28.1 %; Mean Corpuscular HGB Conc 31.7 g/dL (30.0-36.0); Mean Corpuscular Hemoglobin 29.8 pg (28.0-34.0); Mean Corpuscular Volume 94.1 fl (80-94); Mean Platelet Volume 10.4 fL (7.4-10.4); Monocytes # 1.1 10^3/uL (0.2-0.9); Monocytes % 16.7 %; Neutrophils # 3.31 10^3/uL (1.8-7.7); Neutrophils % 49.4 %; Nucleated Red Blood Cells % 0 %; Platelet Count 189 10^3/cmm (130-400); Red Blood Count 4.06 10^6/uL (4.1-5.3); Red Cell Distribution Width 15.6 % (12.1-15.1); White Blood Count 6.7 10^3/uL (4.0-10.0)
[2021-09-17 22:19] LABS: Alanine Aminotransferase 36 U/L (0-41); Albumin Level 3.7 g/dL (3.5-5.2); Alkaline Phosphatase 103 IU/L (40-130); Anion Gap 18.3 (5-19); Aspartate Amino Transferase 36 U/L (0-40); Blood Urea Nitrogen 14 mg/dL (6-20); Calcium 9.2 mg/dL (8.5-10.5); Carbon Dioxide 22 mmol/L (22-29); Chloride 100 mmol/L (98-107); Globulin 3.2 g/dL (1.3-4.6); Glomerular Filtration Rate 119.4 mL/min (90-130); Glucose 183 mg/dL (65-115); Osmolality Calculated 287 mOsm/kg (285-295); Potassium 4.3 mmol/L (3.5-5.1); Sodium 136 mmol/L (136-145); Total Bilirubin 0.5 mg/dL (0.15-1.2); Total Protein 6.9 g/dL (6.6-8.7)
[2021-09-17] MEDS: ondansetron 2 mg/ML SDV 2 mL 4 MG IVP (22:30)
[2021-09-17 23:08] LABS: Influenza A by IFA Negative (Negative); Influenza B by IFA Negative (Negative); SARS Covid-2 Antigen Negative (Negative)
[2021-09-17 23:10] LABS: Add Urine Culture? No; Add Urine Microscopic? YES; Bacteria Urine TRACE /hpf; Bilirubin Urine Neg (Negative); Blood Urine 2+ (Negative); Glucose Urine UA Trace (Normal); Ketones Urine Negative (Negative); Leukocyte Esterase Urine Negative (Negative); Mucus Urine 1+ /hpf; Nitrate Urine Negative (Negative); Protein Urine Trace (Negative); RBC Urine 0-4 /hpf (0-2); Squamous Epithelial Cell Urine 0-4 /hpf (0-5); Urine Appearance Clear (CLEAR); Urine Color Yellow (Yellow); Urobilinogen Urine Norm (Negative); WBC Urine 0-4 /hpf (0-5); pH Urine 5 (5-7)
[2021-09-17 23:28] VITALS: BP 124/74; PULSE 72; RESP 17; TEMP 36.8; O2SAT 93
[2021-09-18 00:05] VITALS: BP 143/89
== END 2021-09-18 00:09 | disposition home or self-care (01) ==
PROVIDERS: Emergency Provider Emergency Medicine; PCP Physician Assistant Medical
DX: R50.9 Fever, unspecified (principal); Z85.118 Personal history of other malignant neoplasm of bronchus and lung; Z79.899 Other long term (current) drug therapy; Z20.822 Contact with and (suspected) exposure to COVID-19
CPT/HCPCS: 71045; 80053; 81001; 85025; 87040; 87426; 87804; 96361; 96374; 99284; J2405; J7030

== ENCOUNTER 2022-01-30 20:04 | Emergency (ER) | payer BC, SELFPAY ==
[2022-01-30] VITALS (7 sets, daily range): BP systolic 115–157; BP diastolic 64–91; PULSE 80–89; RESP 16–18; TEMP 37.4; O2SAT 96–99; BMI 36.6
--- NOTE | 2022-01-30 20:56 | XRR_ITS ---
PROCEDURE INFORMATION: Exam: XR Chest Exam date and time: 01/30/2022 9:07 PM Age: 51 years old Clinical indication: Other: Symptoms from transfusion; Additional info: Pna? TECHNIQUE: Imaging protocol: XR of the chest. Views: 2 views. COMPARISON: CR XR chest 1V portable [id number] 09/17/2021 9:57 PM FINDINGS: Tubes, catheters and devices: Right MediPort in good position. Lungs: Unremarkable. No consolidation. Pleural spaces: Unremarkable. No pleural effusion. No pneumothorax. Heart/Mediastinum: Unremarkable. No cardiomegaly. Bones/joints: Unremarkable. XR/XR chest 2V* [id number] IMPRESSION: No acute disease.
--- NOTE | 2022-01-30 21:04 | ED_ITS ---
HPI - General Adult General: Chief complaint: General Medical Stated complaint: Cancer, symptoms from transfusion Time Seen by Provider: 01/30/22 20:51 History of Present Illness: Patient is a 51-year-old male with history of metastatic colon cancer with mets to the lungs requiring ostomy (last round chemotherapy was on 01/27/2022) presenting to the emergency room for evaluation of generalized weakness and malaise x1 day. Patient tells me that he follows with oncology in [place]. Prior to his chemotherapy, patient underwent a transfusion. 5 to 6 days ago, patient experienced bleeding around his ostomy site with changing of the ostomy bag. Since, patient has not had any ostomy bleeding. Patient told me that at the time of transfusion, his hemoglobin was over 7. Patient denies any melena or hematochezia, urinary complaints, hematuria, hemoptysis/hematemesis, increased ostomy output, abdominal, nausea/vomiting, fever or chills. Patient tells me that earlier today, he had a temperature of 99.7. No other complaints. Onset:1 day ago Duration: ongoing Location:home Severity:moderate Associated symptoms: Deny chest pain, dyspnea, nausea, rash, palpitations or vomiting Review of Systems Const: Reports: fatigue and other (+Generalized weakness); Denies: fever(s) or chills Eyes: Denies: change in vision ENMT: Denies: mouth pain Card: Denies: chest pain or palpitations Resp: Denies: dyspnea or non-productive cough GI: Denies: abdominal pain, nausea, vomiting or diarrhea : Denies: dysuria Musc: Denies: extremity pain Skin/Breast: Denies: rash or new lesions Neuro: Denies: weakness in extremities Psych: Reports: other (Normal mood) Jemal/Lymph: Denies: easy bruising PFSH ED PFSH: Medical History Colorectal cancer Lung metastases Social History Smoking and tobacco status: never smoked Alcohol intake: never Substance/Drug Use: never Physical Exam Const: COMMON NORMALS: alert HENMT: COMMON NORMALS: atraumatic HEAD & SCALP: atraumatic MOUTH: moist mucous membranes abnormal Eye: COMMON NORMALS: EOMs intact bilaterally and conjunctivae normal CONJUNCTIVA: Yes conjunctivae normal Neck/C-Spine: COMMON NORMALS: full ROM and supple Resp: COMMON NORMALS: normal respiratory effort and clear to auscultation bilaterally AUSCULTATION: clear to auscultation bilaterally Cardio: COMMON NORMALS: regular rate RATE: regular rate GI: COMMON NORMALS: Soft to palpation and non-tender PALPATION: Yes Soft to palpation Extremity: COMMON NORMALS: full ROM Neuro: SENSORIUM/ORIENTATION: Yes alert MOTOR EXAM: No Abnormal motor strength present and Other motor observations present (no focal motor deficits) Psych: COMMON NORMALS: speech normal SPEECH: Yes normal speech MOOD & AFFECT: Yes euthymic mood Course Vital Signs: Vital signs: Vital Signs Temperature 99.4 F 01/30/22 20:42 Pulse Rate 85 01/30/22 23:14 Respiratory Rate 18 01/30/22 23:14 Blood Pressure 129/65 01/30/22 23:14 Pulse Oximetry 97 01/30/22 23:14 MDM - General Adult Medical Decision Making 51-year-old male with history of colorectal cancer with mets to the lungs requiring ostomy presents emergency room with complaints of generalized weakness and malaise for the last day after patient received chemotherapy on Thursday. On physical exam, patient appears to be dry. Patient is afebrile in the emergency room, no further focal physical exam findings. Patient is afebrile. WBC of 5.6. Patient is not neutropenic X-ray chest clear. UA negative for any UTI. Patient received 2 L fluid, zofran for baseline nausea, GI cocktail for upset stomach. This patient does not meet the criteria for an febrile neutropenia, I have instructed patient to follow-up closely with his oncologist. Hemoglobin 8.3 which is stable and improving according to his . Disposition: Discharge. Patient counseled regarding diagnostic impression, treatment plan. Patient given ED strict return precautions to return for continuation, worsening, or development of new symptoms. Instructed to f/u w/ his Oncologist regarding symptoms today. Patient verbalized understanding. Marvin horner is given return cautions for any signs of fever. Lab Data : 01/30/22 21:25 01/30/22 21:25 Radiology Impressions Chest X-Ray 01/30/22 20:56 IMPRESSION: No acute disease. Laboratory Results WBC 5.6 10^3/uL (4.0-10.0) 01/30/22: RBC 3.02 10^6/uL (4.1-5.3) L 01/30/22: Hgb 8.3 g/dL (11.7-16.6) L 01/30/22: Hct 26.9 % (42.0-52.0) L 01/30/22: MCV 89.1 fl (80-94) 01/30/22: MCH 27.5 pg (28.0-34.0) L 01/30/22: MCHC 30.9 g/dL (30.0-36.0) 01/30/22: RDW 18.1 % (12.1-15.1) H 01/30/22: Plt Count 211 10^3/cmm (130-400) 01/30/22: MPV 10.1 fL (7.4-10.4) 01/30/22: Neut % (Auto) 65.5 % 01/30/22: Lymph % (Auto) 30.7 % 01/30/22: Benson % (Auto) 2.7 % 01/30/22: Eos % (Auto) 0.5 % 01/30/22: Baso % (Auto) 0.2 % 01/30/22 Neut # (Auto) 3.69 10^3/uL (1.8-7.7) 01/30/22: Lymph # (Auto) 1.7 10^3/uL (0.8-4.8) 01/30/22: Benson # (Auto) 0.2 10^3/uL (0.2-0.9) 01/30/22: Eos # (Auto) 0.0 10^3/uL (0.0-0.8) 01/30/22 Baso # (Auto) 0.0 10^3/uL (0.0-0.1) 01/30/22 Nucleated RBC % (auto) 0 % 01/30/22 Nucleated RBCs # 0.0 /100WBC 01/30/22: Sodium 137 mmol/L (136-145) 04/21/22 21:25 Potassium 4.0 mmol/L (3.5-5.1) 01/30/22 21:25 Chloride 100 mmol/L (98-107) 01/30/22 21:25 Carbon Dioxide 27 mmol/L (22-29) 01/30/22 21:25 Anion Gap 14.0 (5-19) 01/30/22 21:25 BUN 20 mg/dL (6-20) 01/30/22 21:25 Creatinine 0.8 mg/dL (0.7-1.2) 01/30/22:25 GFR Calculation 102.3 mL/min (90-130) 01/30/22: Glucose 135 mg/dL (65-115) H 01/30/22: Calculated Osmolality 289 mOsm/kg (285-295) 01/30/22: Lactate 1.7 mmol/L (0.5-2.2) 01/30/22: Calcium 9.4 mg/dL (8.5-10.5) 01/30/22: Magnesium 2.2 mg/dL (1.7-2.3) 01/30/22: Total Bilirubin 0.7 mg/dL (0.15-1.2) 01/30/22: AST 25 U/L (0-40) 01/30/22: ALT 31 U/L (0-41) 01/30/22: Alkaline Phosphatase 83 IU/L (40-130) 01/30/22: Total Protein 6.4 g/dL (6.6-8.7) L 01/30/22: Albumin 4.0 g/dL (3.5-5.2) 01/30/22: Globulin 2.4 g/dL (1.3-4.6) 01/30/22: Lipase 33 U/L (13-60) 01/30/22 21:25 Urine Color Yellow (Yellow) 01/30/22 22:30 Urine Appearance Clear (CLEAR) 01/30/22 22:30 Urine pH 5 (5-7) 01/30/22 22:30 Ur Specific [place] 1.015 (1.005-1.030) 01/30/22 22:30 Urine Protein Neg (Negative) 01/30/22 22:30 Urine Glucose (UA) Norm (Normal) 01/30/22 22:30 Urine Ketones Negative (Negative) 01/30/22 22:30 Urine Blood Neg (Negative) 01/30/22 22:30 Urine Nitrate Negative (Negative) 01/30/22 22:30 Urine Bilirubin Neg (Negative) 01/30/22 22:30 Urine Urobilinogen Norm mg/dL (Negative) 01/30/22 22:30 Ur Leukocyte Esterase Negative (Negative) 01/30/22 22:30 Blood Type A Negative 01/30/22 21:25 Rho(D) Type Negative 01/30/22 21:25 Antibody Screen Negative 01/30/22 21:25 Imaging Data Other Imaging: Radiologist's impression: [address] [address] XRay Report Signed Patient: Bob Rosario Unit #: [id number] : 1970 Age/Sex: 51 / M ADM Date: 01/30/22 Loc: ER Room/Bed: Attending Dr: Ordering Provider/Ordering MD: Tere Cheney MD Date of Service: 01/30/22 Procedure(s): XR chest 2V* [id number] Accession Number(s): [id number] Report Number: [id number] PROCEDURE INFORMATION: Exam: XR Chest Exam date and time: 01/30/2022 9:07 PM Age: 51 years old Clinical indication: Other: Symptoms from transfusion; Additional info: Pna? TECHNIQUE: Imaging protocol: XR of the chest. Views: 2 views. COMPARISON: CR XR chest 1V portable [id number] 09/17/2021 9:57 PM FINDINGS: Tubes, catheters and devices: Right MediPort in good position. Lungs: Unremarkable. No consolidation. Pleural spaces: Unremarkable. No pleural effusion. No pneumothorax. Heart/Mediastinum: Unremarkable. No cardiomegaly. Bones/joints: Unremarkable. XR/XR chest 2V* [id number] IMPRESSION: No acute disease. ? Dictated By: Petar Heard Signed By: Petar Heard Signed Date/Time: 01/30/222210 DD/ 06 Discharge Plan Discharge Patient Disposition: Home Clinical Impression: Nausea, Generalized weakness Condition: Stable Prescriptions: No Action lisinopril 5 mg tablet 5 mg PO BID@0700,2100 0RF pantoprazole 40 mg tablet,delayed release (DR/EC) 40 mg PO DAILY@0700 Qty: 30 2RF ondansetron HCl 8 mg tablet 8 mg PO Q8H PRN (Reason: Nausea And Vomiting (2nd)) 0RF lidocaine-prilocaine 2.5-2.5 % cream 1 applic topical . DIRECTED 0RF dexamethasone 4 mg tablet See Rx Instructions .ROUTE .COMPLEX 0RF Rx Instructions: 8 mg orally on day 2 & 3 of each treatment cycle docusate sodium [Dulcolax Stool Softener (dss)] 100 mg Capsule 200 mg PO PRN 0RF magnesium citrate Solution 296 ml PO PRN 0RF lactulose 10 gram/15 mL solution 30 ml PO Q6H PRN (Reason: Constipation) 0RF hydrocodone-acetaminophen 5-325 mg tablet 1 tab PO Q6H PRN (Reason: Pain) 0RF oxycodone 5 mg tablet See Rx Instructions .ROUTE .COMPLEX 0RF Rx Instructions: 5 mg orally, TAKE DIRECTED. enoxaparin 40 mg/0.4 mL syringe See Rx Instructions .ROUTE .COMPLEX 0RF Rx Instructions: INJECTION DAILY @2100 Discharge Orders: Discharge ED (Routine); Ordered 01/30/22 Ordered By: Tere Cheney Referrals: Kaiden Ramos [Primary Care Provider] - Discharge Diet: Advance as tolerated Discharge Activity: Increase activity as tolerated Activity Restrictions/Additional Instructions: Come back to the emergency room if any fever greater than 100.4 degrees or sustained fever over 100 degrees for an hour. Can back to the emergency have any new or concerning complaints. Coding Level of Care Code ED Assistant Golf Course Superintendent for Stevo Fwd Exam Comprehensive
[2022-01-30] MEDS: sodium chloride 0.9% 1,000 ML 999 ML IV ×2 (21:37→22:37)
[2022-01-30 21:47] LABS: Basophils % 0.2 %; Eosinophils % 0.5 %; Hematocrit 26.9 % (42.0-52.0); Hemoglobin 8.3 g/dL (11.7-16.6); Lymphocytes # 1.7 10^3/uL (0.8-4.8); Lymphocytes % 30.7 %; Mean Corpuscular HGB Conc 30.9 g/dL (30.0-36.0); Mean Corpuscular Hemoglobin 27.5 pg (28.0-34.0); Mean Corpuscular Volume 89.1 fl (80-94); Mean Platelet Volume 10.1 fL (7.4-10.4); Monocytes # 0.2 10^3/uL (0.2-0.9); Monocytes % 2.7 %; Neutrophils # 3.69 10^3/uL (1.8-7.7); Neutrophils % 65.5 %; Nucleated Red Blood Cells % 0 %; Platelet Count 211 10^3/cmm (130-400); Red Blood Count 3.02 10^6/uL (4.1-5.3); Red Cell Distribution Width 18.1 % (12.1-15.1); White Blood Count 5.6 10^3/uL (4.0-10.0)
[2022-01-30 22:07] LABS: Alanine Aminotransferase 31 U/L (0-41); Alkaline Phosphatase 83 IU/L (40-130); Aspartate Amino Transferase 25 U/L (0-40); Blood Urea Nitrogen 20 mg/dL (6-20); Calcium 9.4 mg/dL (8.5-10.5); Carbon Dioxide 27 mmol/L (22-29); Chloride 100 mmol/L (98-107); Globulin 2.4 g/dL (1.3-4.6); Glomerular Filtration Rate 102.3 mL/min (90-130); Glucose 135 mg/dL (65-115); Lipase 33 U/L (13-60); Magnesium 2.2 mg/dL (1.7-2.3); Osmolality Calculated 289 mOsm/kg (285-295); Sodium 137 mmol/L (136-145); Total Bilirubin 0.7 mg/dL (0.15-1.2); Total Protein 6.4 g/dL (6.6-8.7)
[2022-01-30 22:08] LABS: Lactate (Lactic Acid level) 1.7 mmol/L (0.5-2.2)
[2022-01-30 22:35] LABS: Add Urine Microscopic? NO; Charge for UA Resulting for Rev
[2022-01-30] MEDS: lidocaine 2% viscous 15 ML, aluminum-mag hydrox-simethicon 30 ML, sucralfate oral liq 1 GM PO (22:37)
[2022-01-30 22:38] LABS: Bilirubin Urine Neg (Negative); Blood Urine Neg (Negative); Glucose Urine UA Norm (Normal); Ketones Urine Negative (Negative); Leukocyte Esterase Urine Negative (Negative); Nitrate Urine Negative (Negative); Protein Urine Neg (Negative); Specific Gravity, Urine 1.015 (1.005-1.030); Urine Appearance Clear (CLEAR); Urine Color Yellow (Yellow); Urobilinogen Urine Norm (Negative); pH Urine 5 (5-7)
[2022-01-30] MEDS: ondansetron 2 mg/ML SDV 2 mL 4 MG IVP (23:05)
== END 2022-01-30 23:10 | disposition home or self-care (01) ==
PROVIDERS: Nurse Practitioner Family; Emergency Provider Emergency Medicine; PCP Physician Assistant Medical
DX: R53.1 Weakness (principal); R11.0 Nausea; C19 Malignant neoplasm of rectosigmoid junction; C78.02 Secondary malignant neoplasm of left lung; C78.01 Secondary malignant neoplasm of right lung; Z93.3 Colostomy status; Z92.21 Personal history of antineoplastic chemotherapy; Z79.891 Long term (current) use of opiate analgesic
CPT/HCPCS: 71046; 80053; 81003; 83605; 83690; 83735; 85025; 86850; 86900; 87040; 96361; 96374; 99284; J2405; J7030

== ENCOUNTER 2022-08-07 22:10 | Emergency (ER) | payer BC, SELFPAY ==
--- NOTE | 2022-08-07 22:12 | ECG_ITS ---
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 Measurements Intervals [place] Rate: 106 P: 15 [place]: 160 QRS: -12 QRSD: 88 T: 28 QT: 313 QTc: 416 Interpretive Statements SINUS TACHYCARDIA POSSIBLE LEFT ATRIAL ENLARGEMENT [-0.1mV P-WAVE IN V1/V2] ABNORMAL RHYTHM ECG No previous ECG available for comparison Electronically Signed On 08-08-2022 9:11:30 CDT by Gina Rosenthal M.D. [email or web address] health mi[facility] valley hospital [id number]
--- NOTE | 2022-08-07 22:12 | XRR_ITS ---
PROCEDURE INFORMATION: Exam: XR Chest Exam date and time: 08/07/2022 11:16 PM Age: 52 years old Clinical indication: Left-sided; Patient HX: C/O left sided chest pain with hypertension. History of metastatic colon cancer. ; Additional info: Cp TECHNIQUE: Imaging protocol: Radiologic exam of the chest. Views: 1 view. COMPARISON: CR XR chest 2V* [id number] 01/30/2022 9:07 PM FINDINGS: Tubes, catheters and devices: Right-sided Port-A-Cath with tip in the superior vena cava approaching the atrial caval junction. Lungs: Unremarkable. No consolidation. Pleural spaces: Unremarkable. No pleural effusion. No pneumothorax. Heart/Mediastinum: Unremarkable. No cardiomegaly. Bones/joints: Unremarkable. XR/XR chest 1V portable [id number] IMPRESSION: Lungs are clear.
[2022-08-07 22:19] VITALS: BP 189/116; PULSE 105; RESP 17; TEMP 36.9; O2SAT 94; BMI 36.6
[2022-08-07 23:25] LABS: Basophils # 0.1 10^3/uL (0.0-0.1); Basophils % 0.5 %; Eosinophils # 0.1 10^3/uL (0.0-0.8); Eosinophils % 0.8 %; Hemoglobin 13.9 g/dL (11.7-16.6); Lymphocytes % 13.3 %; Mean Corpuscular HGB Conc 30.9 g/dL (30.0-36.0); Mean Corpuscular Hemoglobin 29.7 pg (28.0-34.0); Mean Corpuscular Volume 96.2 fl (80-94); Monocytes # 1.2 10^3/uL (0.2-0.9); Neutrophils # 11.76 10^3/uL (1.8-7.7); Neutrophils % 76.8 %; Nucleated Red Blood Cells % 0 %; Platelet Count 334 10^3/cmm (130-400); Red Blood Count 4.68 10^6/uL (4.1-5.3); Red Cell Distribution Width 16.7 % (12.1-15.1); White Blood Count 15.3 10^3/uL (4.0-10.0)
[2022-08-07 23:26] VITALS: BP 157/99; PULSE 106; RESP 33; O2SAT 89
--- NOTE | 2022-08-07 23:27 | W.ED.CHESTPA ---
HPI - Chest Pain General: Chief Complaint: Chest Pain Stated Complaint: Chest Pain Time Seen by Provider: 08/07/22 23:16 Source: patient Mode of arrival: ambulatory Limitations: no limitations History of Present Illness: 52-year-old male has a history of colorectal cancer his last chemo treatment was 10 4 he states he starts again next month. He states that over the last 2 days has been having some chest and back pain he states he is concerned today because his blood pressure is elevated 160 at home. He states the pain is been sharp he rates it a 2 out of 10 currently he denies any worsening proving factors denies any shortness of breath. He states he did take a trip to [facility] over the last few weeks and he had to be admitted there for a week ago due to high-altitude sickness he states he had a CT of his chest there that was normal he states that he had a CT today to with his oncologist along with a liver biopsy. He is in no distress here. Associated symptoms: Deny abdominal pain, dyspnea, fever(s), nausea or vomiting Review of Systems Const: Denies: fever(s), chills, body aches or change in appetite Eyes: Denies: blurry vision or eye discomfort ENMT: Denies: throat pain or dental pain Card: Reports: chest pain Resp: Denies: dyspnea GI: Denies: abdominal pain, nausea, vomiting or diarrhea : Denies: dysuria Musc: Denies: neck pain or back pain Skin/Breast: Denies: rash Neuro: Denies: headache(s) Psych: Denies: depression Jemal/Lymph: Denies: easy bruising All/Imm: Denies: urticaria PFSH ED PFSH: Medical History Colorectal cancer Lung metastases Social History Smoking and tobacco status: never smoked Alcohol intake: never Physical Exam Const: COMMON NORMALS: no acute distress, patient oriented x3 and healthy appearing HENMT: COMMON NORMALS: normocephalic and atraumatic HEAD & SCALP: normocephalic and atraumatic Eye: COMMON NORMALS: Equal, round and reactive pupils present and EOMs intact bilaterally PUPIL: Yes Equal, round and reactive pupils present Neck/C-Spine: COMMON NORMALS: full ROM and supple Chest: COMMONS NORMALS: normal inspection of the chest and normal palpation of entire chest wall Resp: COMMON NORMALS: normal respiratory effort, No retractions, No use of accessory muscles and clear to auscultation bilaterally AUSCULTATION: clear to auscultation bilaterally Cardio: COMMON NORMALS: regular rhythm and No murmurs present (Cardio) RATE: tachycardic RHYTHM: regular rhythm GI: COMMON NORMALS: Normal to inspection, nondistended, normoactive bowel sounds present, Soft to palpation, non-tender and no masses PALPATION: Yes Soft to palpation Extremity: COMMON NORMALS: normal to inspection and full ROM Neuro: COMMON NORMALS: patient oriented x3, moves all extremities and no focal motor deficits Psych: COMMON NORMALS: mental status grossly normal, Normal thought process present and cooperative THOUGHT PROCESS: Normal thought process present Skin: COMMON NORMALS: no rashes or lesions noted and no wounds GENERAL SKIN EXAM: no rashes or lesions noted Course Vital Signs: Vital signs: Vital Signs Temperature 98.4 F 08/07/22 22:19 Pulse Rate 105 H 08/07/22 22:19 Respiratory Rate 17 08/07/22 22:19 Blood Pressure 189/116 08/07/22 22:19 Pulse Oximetry 94 08/07/22 22:19 Oxygen Delivery Me thod 08/07/22 22:19 MDM - Chest Pain Medical Decision Making Patient presents here with chest pain is since resolved since his blood pressure is improved. His troponins here are normal he has no signs of pneumonia no signs of pulmonary embolism or dissection we will start him on metoprolol as well inform if he has any more chest pain he is to return he is to follow-up with his PCP in 2 to 4 days he understands and agrees to plan. Lab Data : 08/07/22 23:19 08/07/22 23:19 Radiology Impressions Chest X-Ray 08/07/22 22:12 IMPRESSION: Lungs are clear. Laboratory Results WBC 15.3 10^3/uL (4.0-10.0) H 08/07/22 23:19 RBC 4.68 10^6/uL (4.1-5.3) 08/07/22 23:19 Hgb 13.9 g/dL (11.7-16.6) 08/07/22 23:19 Hct 45.0 % (42.0-52.0) 08/07/22 23:19 MCV 96.2 fl (80-94) H 08/07/22 23:19 MCH 29.7 pg (28.0-34.0) 08/07/22 23:19 MCHC 30.9 g/dL (30.0-36.0) 08/07/22 23:19 RDW 16.7 % (12.1-15.1) H 08/07/22 23:19 Plt Count 334 10^3/cmm (130-400) 08/07/22 23:19 MPV 10.0 fL (7.4-10.4) 08/07/22 23:19 Neut % (Auto) 76.8 % 08/07/22 23:19 Lymph % (Auto) 13.3 % 08/07/22 23:19 [place] % (Auto) 8.0 % 08/07/22 23:19 Eos % (Auto) 0.8 % 08/07/22 23:19 Baso % (Auto) 0.5 % 08/07/22 23:19 Neut # (Auto) 11.76 10^3/uL (1.8-7.7) H 08/07/22 23:19 Lymph # (Auto) 2.0 10^3/uL (0.8-4.8) 08/07/22 23:19 [place] # (Auto) 1.2 10^3/uL (0.2-0.9) H 08/07/22 23:19 Eos # (Auto) 0.1 10^3/uL (0.0-0.8) 08/07/22 23:19 Baso # (Auto) 0.1 10^3/uL (0.0-0.1) 08/07/22 23:19 Nucleated RBC % (auto) 0 % 08/07/22 23:19 Nucleated RBCs # 0.0 /100WBC 08/07/22 23:19 Sodium 136 mmol/L (136-145) 08/07/22 23:19 Potassium 4.3 mmol/L (3.5-5.1) 08/07/22 23:19 Chloride 96 mmol/L (98-107) L 08/07/22 23:19 Carbon Dioxide 27 mmol/L (22-29) 08/07/22 23:19 Anion Gap 17.3 (5-19) 08/07/22 23:19 BUN 13 mg/dL (6-20) 08/07/22 23:19 Creatinine 0.7 mg/dL (0.7-1.2) 08/07/22 23:19 GFR Calculation 118.9 mL/min (90-130) 08/07/22 23:19 Glucose 155 mg/dL (65-115) H 08/07/22 23:19 Calculated Osmolality 285 mOsm/kg (285-295) 08/07/22 23:19 Calcium 10.2 mg/dL (8.5-10.5) 08/07/22 23:19 Total Bilirubin 0.6 mg/dL (0.15-1.2) 08/07/22 23:19 AST 19 U/L (0-40) 08/07/22 23:19 ALT 35 U/L (0-41) 08/07/22 23:19 Alkaline Phosphatase 247 U/L (40-130) H 08/07/22 23:19 Troponin T Baseline 7 ng/L (0-15) 08/07/22 23:19 Troponin T 120 Minute 6.81 ng/L (0-15) 08/08/22 00:51 NT-Pro-B Natriuret Pep 40 pg/mL (0-125) 08/07/22 23:19 Total Protein 8.0 g/dL (6.6-8.7) 08/07/22 23:19 Albumin 4.5 g/dL (3.5-5.2) 08/07/22 23:19 Globulin 3.5 g/dL (1.3-4.6) 08/07/22 23:19 EKG Data EKG 1: I personally reviewed and interpreted this EKG as follows: EKG interpretation date: 08/07/22 EKG interpretation time: 21:43 Interpretation: nsr hr [address] or t wave abnormalities qrs 173 qtc 473 Discharge Plan Discharge Patient Disposition: Home Clinical Impression: Chest pain, Hypertension Condition: Stable Prescriptions: New metoprolol succinate 25 mg tablet extended release 24 hr 25 mg PO DAILY Qty: 30 0RF No Action lisinopril 5 mg tablet 5 mg PO BID@0700,2100 pantoprazole 40 mg tablet,delayed release (DR/EC) 40 mg PO DAILY@0700 Qty: 30 2RF ondansetron HCl 8 mg tablet 8 mg PO Q8H PRN (Reason: Nausea And Vomiting (2nd)) lidocaine-prilocaine 2.5-2.5 % cream 1 applic topical . DIRECTED dexamethasone 4 mg tablet See Rx Instructions .ROUTE .COMPLEX Rx Instructions: 8 mg orally on day 2 & 3 of each treatment cycle docusate sodium [Dulcolax Stool Softener (dss)] 100 mg Capsule 200 mg PO PRN magnesium citrate Solution 296 ml PO PRN lactulose 10 gram/15 mL solution 30 ml PO Q6H PRN (Reason: Constipation) hydrocodone-acetaminophen 5-325 mg tablet 1 tab PO Q6H PRN (Reason: Pain) oxycodone 5 mg tablet See Rx Instructions .ROUTE .COMPLEX Rx Instructions: 5 mg orally, TAKE DIRECTED. enoxaparin 40 mg/0.4 mL syringe See Rx Instructions .ROUTE .COMPLEX Rx Instructions: INJECTION DAILY @2100 Discharge Orders: Discharge ED (Routine); Ordered 08/08/22 Ordered By: Irish Richmond Referrals: Purnima Castillo [Primary Care Provider] - Discharge Diet: Advance as tolerated Discharge Activity: Resume usual activity Patient Instructions: Chest Pain (ED), Hypertension (ED) Coding Level of Care Code ED Pediatric Orthodontist for Stevo Fwsary Exam Comprehensive
[2022-08-07] MEDS: labetalol 5 mg/mL SDV 20mL 10 MG IVP (23:36)
[2022-08-07 23:43] LABS: Troponin(5th) Baseline 7 ng/L (0-15)
[2022-08-07 23:46] LABS: Alanine Aminotransferase 35 U/L (0-41); Albumin Level 4.5 g/dL (3.5-5.2); Alkaline Phosphatase 247 U/L (40-130); Aspartate Amino Transferase 19 U/L (0-40); Blood Urea Nitrogen 13 mg/dL (6-20); Calcium 10.2 mg/dL (8.5-10.5); Carbon Dioxide 27 mmol/L (22-29); Chloride 96 mmol/L (98-107); Globulin 3.5 g/dL (1.3-4.6); Glomerular Filtration Rate 118.9 mL/min (90-130); Glucose 155 mg/dL (65-115); Osmolality Calculated 285 mOsm/kg (285-295); Sodium 136 mmol/L (136-145); Total Bilirubin 0.6 mg/dL (0.15-1.2)
[2022-08-07 23:49] LABS: Anion Gap 17.3 (5-19); Potassium 4.3 mmol/L (3.5-5.1)
[2022-08-07 23:56] VITALS: BP 169/108; PULSE 90; RESP 33; O2SAT 89
[2022-08-08 00:08] LABS: NT Pro B Type Natriuretic Pept 40 pg/mL (0-125)
--- NOTE | 2022-08-08 00:12 | ECG_ITS ---
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 Measurements Intervals [place] Rate: 94 P: 28 WI: 168 QRS: 0 QRSD: 87 T: 16 QT: 322 QTc: 403 Interpretive Statements SINUS RHYTHM POSSIBLE LEFT ATRIAL ENLARGEMENT [-0.1mV P-WAVE IN V1/V2] Compared to ECG 08/07/2022 22:22:19 Sinus tachycardia no longer present Electronically Signed On 08-08-2022 9:12:55 CDT by Gina Rosenthal M.D. [id number]
[2022-08-08 00:26] VITALS: BP 159/109; PULSE 89; RESP 33; O2SAT 90
[2022-08-08] MEDS: labetalol 5 mg/mL SDV 20mL 20 MG IVP (00:49)
[2022-08-08 00:56] VITALS: BP 144/82; PULSE 87; RESP 30; O2SAT 91
[2022-08-08 01:14] LABS: Troponin 5 2HR 6.81 ng/L (0-15)
[2022-08-08 01:18] LABS: Troponin 5 2HR Delta -0.19 ABS# (0-10)
[2022-08-08 01:20] VITALS: BP 144/82; PULSE 93; RESP 25; O2SAT 93
== END 2022-08-08 01:44 | disposition home or self-care (01) ==
PROVIDERS: Emergency Provider Emergency Medicine; PCP Registered Nurse
DX: R07.9 Chest pain, unspecified (principal); I10 Essential (primary) hypertension; Z85.038 Personal history of other malignant neoplasm of large intestine; Z85.118 Personal history of other malignant neoplasm of bronchus and lung; Z92.21 Personal history of antineoplastic chemotherapy
CPT/HCPCS: 36415; 71045; 80053; 83880; 84484; 85025; 93005; 96374; 96376; 99285; J3490

== ENCOUNTER 2022-12-14 10:24 | Emergency (ER) | payer BC, SELFPAY ==
--- NOTE | 2022-12-14 10:37 | ECG_ITS ---
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 Measurements Intervals [place] Rate: 82 P: 19 CT: 165 QRS: 88 QRSD: 85 T: 51 QT: 348 QTc: 407 Interpretive Statements SINUS RHYTHM NONSPECIFIC T-WAVE ABNORMALITY Compared to ECG 08/08/2022 00:07:59 T-wave abnormality now present Electronically Signed On 12-14-2022 11:37:37 SWATCH CUTTER by Joselito Kate M.D. [email or web address] hospitalSkyscannerfisher-titus medical centerMagin/store/OM/[id number]
[2022-12-14 10:39] VITALS: BP 120/73; PULSE 84; RESP 16; TEMP 36.8; O2SAT 93; BMI 36.7
--- NOTE | 2022-12-14 10:52 | ED_ITS ---
HPI - Chest Pain General: Chief Complaint: Chest Pain Stated Complaint: cancer pt, chest tightness, weakness Time Seen by Provider: 12/14/22 10:51 History of Present Illness: Mr. Rosario is a 52-year-old gentleman with complex past medical history including metastatic colon cancer presenting to the emergency department for generalized illness. Reports a headache which he describes as like a bad hangover associated with spinning sensation dizziness over the past few days. Intensity of the symptoms have worsened and is now moderate to severe. This has persisted and he also has some sob sternal chest tightness which is aching and moderate intensity. He typically follows for his colon cancer in [place] and is on immunotherapy. 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 No other specific changes in health, exacerbating, or alleviating factors identified. [facility] Immunotherapy clinical trial [id number] and nivolumab Follows with Dr. Espinoza in [place] for endocrinology. Onset (ago): day(s) Timing of current episode: constant Prior episodes: No Pain location: other Severity: moderate Quality: aching Relieving factors: nothing Exacerbating factors: nothing Context: other Associated symptoms: Reports other Review of Systems General: Reports: 10 or more systems reviewed and unremarkable except in HPI and below PFSH ED PFSH: Medical History Colorectal cancer Lung metastases Social History Smoking and tobacco status: never smoked Alcohol intake: never Physical Exam Const: COMMON NORMALS: patient oriented x3 and alert GENERAL APPEARANCE: cooperative and well developed HENMT: COMMON NORMALS: normocephalic and atraumatic HEAD & SCALP: normocephalic and atraumatic THROAT: posterior oropharynx normal Eye: COMMON NORMALS: conjunctivae normal CONJUNCTIVA: Yes conjunctivae normal SCLERA: sclerae normal Neck/C-Spine: COMMON NORMALS: supple GENERAL: Yes trachea midline Resp: COMMON NORMALS: normal respiratory effort EFFORT & INSPECTION: Yes able to speak in complete sentences Cardio: COMMON NORMALS: regular rate and regular rhythm RATE: regular rate RHYTHM: regular rhythm GI: COMMON NORMALS: Soft to palpation PALPATION: Yes Soft to palpation and No Tenderness to palpation present (GI) Extremity: GENERAL: Yes normal exam except as noted and No edema Neuro: COMMON NORMALS: patient oriented x3, CN's II-XII intact bilaterally, moves all extremities, no focal motor deficits and no sensory deficits noted SENSORIUM/ORIENTATION: Yes alert and No Orientation impaired Psych: COMMON NORMALS: mental status grossly normal and Normal thought process present THOUGHT PROCESS: Normal thought process present Course Vital Signs: Vital signs: Vital Signs Temperature 98.3 F 12/14/22 10:39 Pulse Rate 80 12/14/22 14:51 Respiratory Rate 18 12/14/22 14:51 Blood Pressure 131/82 12/14/22 14:51 Pulse Oximetry 94 12/14/22 14:51 Oxygen Delivery Me thod 12/14/22 14:00 Oxygen Flow Rate 3 12/14/22 14:00 MDM - Chest Pain Medical Decision Making 52-year-old gentleman presenting with generalized illness including chest tightness, weakness, headache. This is in the context of cancer. Exam as above, patient is nontoxic and there are no focal neurologic deficits appreciated. EKG notable for sinus rhythm with normal axis and intervals, nonspecific ST segment abnormalities, no STEMI Labs notable for no significant hematologic abnormality. Perhaps mild dehy dration on metabolic panel. TSH is considerably elevated with low free T4 though free T4 is improved from prior reported by family though TSH is mildly worse. No evidence of urinary tract infection. Viral panel is negative. Head CT negative for acute process. Chest x-ray with no lobar consolidation or pneumothorax. Patient treated with meclizine, fluids, headache cocktail, analgesia with some improvement in symptoms. I did attempt to contact the on-call endocrinology team at [place] however I guess the patient's primary machine milker is from a private group and therefore they are unable to give medical advice. I discussed the results of ED evaluation of the patient. I offered transfer for further management which the patient declined, they have an appointment in the morning which I believe is reasonable. I had a discussion with the patient regarding possible etiologies of symptoms., He is quite concerned about the thyroid abnormality being the cause of his symptoms. I explained that I do not typically make changes however I did express that it would be reasonable to incr ease his dose with either plan to prescribe a higher dose or he can take an extra tablet this evening and follow-up with his primary care provider with a primary concern being opposite effect of too much levothyroxine. I also discussed possible etiologies of the patient's chest pain and options with regards to testing. Patient is comfortable with plan further outpatient management with plan to go to [place] for his appointments in the morning and contact his machine milker in the morning. Most likely etiology of patient's symptoms is unclear, he does have a thyroid abnormality, nonspecific chest pain, headache. The results of ED evaluation were discussed with the patient including possible disposition options. I discussed risk stratification by heart score and estimated risk of major adverse cardiac events. The patient wishes to proceed with outpatient management. I discussed prescriptions and/or symptomatic cares (if applicable) including appropriate and responsible use, followup plan, and return precautions. The patient verbalized understanding and felt safe for discharge. Medical Records I reviewed the patient's medical records. Lab Data I reviewed the patient's lab results. 12/14/22 11:17 12/14/22 11:17 Radiology Impressions Chest X-Ray 12/14/22 10:59 IMPRESSION: No acute cardiopulmonary abnormality identified. Head CT 12/14/22 10:59 IMPRESSION: No acute intracranial abnormality. Laboratory Results WBC 9.0 10^3/uL (4.0-10.0) 12/14/22 11:17 RBC 4.99 10^6/uL (4.1-5.3) 12/14/22 11:17 Hgb 13.2 g/dL (11.7-16.6) 12/14/22 11:17 Hct 43.0 % (42.0-52.0) 12/14/22 11:17 MCV 86.2 fl (80-94) 12/14/22 11:17 MCH 26.5 pg (28.0-34.0) L 12/14/22 11:17 MCHC 30.7 g/dL (30.0-36.0) 12/14/22 11:17 RDW 15.6 % (12.1-15.1) H 12/14/22 11:17 Plt Count 330 10^3/cmm (130-400) 12/14/22 11:17 MPV 8.9 fL (7.4-10.4) 12/14/22 11:17 Neut % (Auto) 64.3 % 12/14/22 11:17 Lymph % (Auto) 24.2 % 12/14/22 11:17 [place] % (Auto) 5.8 % 12/14/22 11:17 Eos % (Auto) 4.6 % 12/14/22 11:17 Baso % (Auto) 0.8 % 12/14/22 11:17 Neut # (Auto) 5.76 10^3/uL (1.8-7.7) 12/14/22 11:17 Lymph # (Auto) 2.2 10^3/uL (0.8-4.8) 12/14/22 11:17 [place] # (Auto) 0.5 10^3/uL (0.2-0.9) 12/14/22 11:17 Eos # (Auto) 0.4 10^3/uL (0.0-0.8) 12/14/22 11:17 Baso # (Auto) 0.1 10^3/uL (0.0-0.1) 12/14/22 11:17 Nucleated RBC % (auto) 0 % 12/14/22 11:17 Nucleated RBCs # 0.0 /100WBC 12/14/22 11:17 Sodium 134 mmol/L (136-145) L 12/14/22 11:17 Potassium 4.2 mmol/L (3.5-5.1) 12/14/22 11:17 Chloride 95 mmol/L (98-107) L 12/14/22 11:17 Carbon Dioxide 27 mmol/L (22-29) 12/14/22 11:17 Anion Gap 16.2 (5-19) 12/14/22 11:17 BUN 10 mg/dL (6-20) 12/14/22 11:17 Creatinine 1.0 mg/dL (0.7-1.2) 12/14/22 11:17 GFR Calculation 78.8 mL/min (90-130) L 12/14/22 11:17 Glucose 165 mg/dL (65-115) H 12/14/22 11:17 Calculated Osmolality 281 mOsm/kg (285-295) L 12/14/22 11:17 Calcium 9.4 mg/dL (8.5-10.5) 12/14/22 11:17 Total Bilirubin 0.4 mg/dL (0.15-1.2) 12/14/22 11:17 AST 18 U/L (0-40) 12/14/22 11:17 ALT 11 U/L (0-41) 12/14/22 11:17 Alkaline Phosphatase 113 U/L (40-130) 12/14/22 11:17 Troponin T Baseline 12 ng/L (0-15) 12/14/22 11:17 Troponin T 120 Minute 11.44 ng/L (0-15) 12/14/22 13:24 Delta Troponin T -0.56 ABS# (0-10) L 12/14/22 13:24 NT-Pro-B Natriuret Pep 36 pg/mL (0-125) 12/14/22 11:17 Total Protein 7.8 g/dL (6.6-8.7) 12/14/22 11:17 Albumin 3.9 g/dL (3.5-5.2) 12/14/22 11:17 Globulin 3.9 g/dL (1.3-4.6) 12/14/22 11:17 TSH 54.02 uIU/mL (0.27-4.20) H 12/14/22 11:17 Free T4 0.18 ng/dL (0.82-1.77) L 12/14/22 11:17 Urine Color Yellow (Yellow) 12/14/22 12:47 Urine Appearance Clear (CLEAR) 12/14/22 12:47 Urine pH 5 (5-7) 12/14/22 12:47 Ur Specific [place] 1.030 (1.005-1.030) 12/14/22 12:47 Urine Protein Neg (Negative) 12/14/22 12:47 Urine Glucose (UA) Norm (Normal) 12/14/22 12:47 Urine Ketones 1+ (Negative) H 12/14/22 12:47 Urine Blood Neg (Negative) 12/14/22 12:47 Urine Nitrate Negative (Negative) 12/14/22 12:47 Urine Bilirubin Neg (Negative) 12/14/22 12:47 Urine Urobilinogen Norm mg/dL (Negative) 12/14/22 12:47 Ur Leukocyte Esterase Negative (Negative) 12/14/22 12:47 Coronavirus 229E (PCR) Not detected (NOT DETECT) 12/14/22 11:04 SARS-CoV-2 (PCR) Not detected (NOT DETECT) 12/14/22 11:04 Discharge Plan Discharge Patient Disposition: Home Clinical Impression: Chest pain, Weakness, Headache, Thyroid disorder, Dehydration, mild, Dizziness Condition: Stable Prescriptions: No Action lisinopril 5 mg tablet 5 mg PO BID@0700,2100 pantoprazole 40 mg tablet,delayed release (DR/EC) 40 mg PO DAILY@0700 Qty: 30 2RF ondansetron HCl 8 mg tablet 8 mg PO Q8H PRN (Reason: Nausea And Vomiting (2nd)) metoprolol succinate 25 mg tablet extended release 24 hr 25 mg PO DAILY Qty: 30 0RF metformin 500 mg Tablet 1,000 mg PO BID zinc acetate 50 mg (zinc) Capsule 50 mg PO DAILY Zyrtec 10 mg Tablet 10 mg PO DAILY PRN (Reason: Allergy Symptoms) glyburide 5 mg Tablet 5 mg PO DAILY L-Lysine 1,000 mg Tablet 1,000 mg PO DAILY Compazine 10 mg Tablet 10 mg PO Q6H PRN (Reason: Nausea) tramadol 50 mg Tablet 50 mg PO Q6H PRN (Reason: Pain) Vitamin B-12 500 mcg Tablet 500 mcg PO DAILY Vitamin C 500 mg Tablet 500 mg PO DAILY levothyroxine 50 mcg Tablet 50 mcg PO DAILY gabapentin 300 mg Capsule 300 mg PO TID Vitamin D3 25 mcg (1,000 unit) Capsule 25 mcg PO DAILY Xarelto 20 mg Tablet 20 mg PO DAILY Rx Instructions: must administer with evening meal Discharge Orders: Discharge ED (Routine); Ordered 12/14/22 Ordered By: Gerry Robin Referrals: Purnima Castillo [Primary Care Provider] - Discharge Diet: Usual diet Discharge Activity: Increase activity as tolerated Patient Instructions: Chest Pain (ED), Dehydration (ED), Acute Headache (ED), Dizziness (ED), Opioid Safety Activity Restrictions/Additional Instructions: Thank you for visiting the emergency department. You were seen and evaluated for generalized headache, dizziness, malaise, and chest pain. The exact cause of your symptoms is unclear as discussed. I recommend follow-up with your care team in [place] as scheduled tomorrow. Please contact your machine milker. As discussed it is probably reasonable to take an extra levothyroxine tablet tonight in the meantime. You are not low risk for adverse cardiac events and I will message case management for cardiac testing in the outpatient setting. This can also be discussed with your primary care provider and [place] care team. Return to the emergency department for anything that you are concerned about and feel needs emergency department evaluation. Coding Level of Care Code ED Die Stamper for Stevo Marie
--- NOTE | 2022-12-14 10:59 | CTR_ITS ---
PROCEDURE INFORMATION: Exam: CT Head Without Contrast Exam date and time: 12/14/2022 11:21 AM Age: 52 years old Clinical indication: Dizziness; Additional info: Dizzy, HX cancer TECHNIQUE: Imaging protocol: Computed tomography of the head without contrast. Radiation optimization: All CT scans at this facility use at least one of these dose optimization techniques: automated exposure control; mA and/or kV adjustment per patient size (includes targeted exams where dose is matched to clinical indication); or iterative reconstruction. REPORTING DATA: Count of CT and Cardiac NM exams in prior 12 months: This patient has received 0 known CTs and 0 known cardiac nuclear medicine studies in the 12 months prior to the current study. COMPARISON: No relevant prior studies available. RADIATION DOSE METRICS: Total DLP (mGy-cm): 1122.68 FINDINGS: Brain: No acute hemorrhage identified. No large territorial areas of hypoattenuation concerning for ischemic infarct identified. No intracranial mass effect. Cerebral ventricles: The ventricles are within normal limits. Paranasal sinuses: The visualized sinuses are unremarkable. Mastoid air cells: The visualized mastoid air cells are well aerated. Bones/joints: The osseous structures are intact. Soft tissues: Unremarkable. CT/CT head wo con* [id number] IMPRESSION: No acute intracranial abnormality.
--- NOTE | 2022-12-14 10:59 | XRR_ITS ---
PROCEDURE INFORMATION: Exam: XR Chest Exam date and time: 12/14/2022 11:04 AM Age: 52 years old Clinical indication: Other: Dizziness; Prior surgery; Surgery date: 1-6 months; Surgery type: Port; Additional info: Cp TECHNIQUE: Imaging protocol: Radiologic exam of the chest. Views: 1 view. COMPARISON: CR XR chest 1V portable [id number] 08/07/2022 11:16 PM FINDINGS: Tubes, catheters and devices: Right-sided subclavian central venous chest port noted with the distal tip in the mid to lower SVC. Lungs: The lung parenchyma is clear. Pleural spaces: No pneumothorax. No pleural effusion. Heart/Mediastinum: The cardiomediastinal silhouette is within normal limits. Bones/joints: Unremarkable. XR/XR chest 1V portable [id number] IMPRESSION: No acute cardiopulmonary abnormality identified.
[2022-12-14] MEDS: meclizine 25 mg tablet PO (11:12)
[2022-12-14] MEDS: sodium chloride 0.9% 1,000 ML 999 ML IV (11:18)
[2022-12-14 11:27] LABS: Basophils # 0.1 10^3/uL (0.0-0.1); Basophils % 0.8 %; Eosinophils # 0.4 10^3/uL (0.0-0.8); Eosinophils % 4.6 %; Hemoglobin 13.2 g/dL (11.7-16.6); Lymphocytes # 2.2 10^3/uL (0.8-4.8); Lymphocytes % 24.2 %; Mean Corpuscular HGB Conc 30.7 g/dL (30.0-36.0); Mean Corpuscular Hemoglobin 26.5 pg (28.0-34.0); Mean Corpuscular Volume 86.2 fl (80-94); Mean Platelet Volume 8.9 fL (7.4-10.4); Monocytes # 0.5 10^3/uL (0.2-0.9); Monocytes % 5.8 %; Neutrophils # 5.76 10^3/uL (1.8-7.7); Neutrophils % 64.3 %; Nucleated Red Blood Cells % 0 %; Platelet Count 330 10^3/cmm (130-400); Red Blood Count 4.99 10^6/uL (4.1-5.3); Red Cell Distribution Width 15.6 % (12.1-15.1)
[2022-12-14 12:01] LABS: Troponin(5th) Baseline 12 ng/L (0-15)
[2022-12-14 12:07] LABS: Alanine Aminotransferase 11 U/L (0-41); Albumin Level 3.9 g/dL (3.5-5.2); Alkaline Phosphatase 113 U/L (40-130); Anion Gap 16.2 (5-19); Aspartate Amino Transferase 18 U/L (0-40); Blood Urea Nitrogen 10 mg/dL (6-20); Calcium 9.4 mg/dL (8.5-10.5); Carbon Dioxide 27 mmol/L (22-29); Chloride 95 mmol/L (98-107); Free T4 Free Thyroxine 0.18 ng/dL (0.82-1.77); Globulin 3.9 g/dL (1.3-4.6); Glomerular Filtration Rate 78.8 mL/min (90-130); Glucose 165 mg/dL (65-115); NT Pro B Type Natriuretic Pept 36 pg/mL (0-125); Osmolality Calculated 281 mOsm/kg (285-295); Potassium 4.2 mmol/L (3.5-5.1); Sodium 134 mmol/L (136-145); Thyroid Stimulating Hormone 54.02 uIU/mL (0.27-4.20); Total Bilirubin 0.4 mg/dL (0.15-1.2); Total Protein 7.8 g/dL (6.6-8.7)
[2022-12-14] MEDS: metoclopramide 5 mg/mL SDV 2 mL IVP (12:25)
[2022-12-14] MEDS: ketorolac 30 mg/mL INJ 15 MG IVP (12:25)
[2022-12-14] MEDS: diphenhydrAMINE 50 mg/mL SDV 1mL 12.5 MG IVP (12:25)
[2022-12-14 12:26] VITALS: BP 123/83; BP 126/82; BP 131/77; PULSE 72; PULSE 73; PULSE 80
[2022-12-14 12:57] LABS: Add Urine Microscopic? NO; Charge for UA Resulting for Rev
--- NOTE | 2022-12-14 13:03 | ECG_ITS ---
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 Measurements Intervals [place] Rate: 73 P: 50 [place]: 189 QRS: 84 QRSD: 88 T: 30 QT: 383 QTc: 422 Interpretive Statements SINUS RHYTHM LOW QRS VOLTAGE IN PRECORDIAL LEADS [QRS DEFLECTION < 1.0 mV IN CHEST LEADS] NONSPECIFIC T-WAVE ABNORMALITY Compared to ECG 12/14/2022 10:44:45 Low QRS voltage now present T-wave abnormality still present Electronically Signed On 12-14-2022 21:24:41 REGIONAL ENGINEER by Joselito Kate M.D. [email or web address] [id number]
[2022-12-14 13:26] LABS: Bilirubin Urine Neg (Negative); Blood Urine Neg (Negative); Glucose Urine UA Norm (Normal); Ketones Urine 1+ (Negative); Leukocyte Esterase Urine Negative (Negative); Nitrate Urine Negative (Negative); Protein Urine Neg (Negative); Urine Appearance Clear (CLEAR); Urine Color Yellow (Yellow); Urobilinogen Urine Norm (Negative); pH Urine 5 (5-7)
[2022-12-14 13:30] LABS: Adenovirus Not Detected (NOT DETECT); Chlamydia Pneumoniae Not Detected (NOT DETECT); Coronavirus 229E,HKU1,NL63,OC4 Not Detected (NOT DETECT); Human Metapneumovirus Not Detected (NOT DETECT); Human Rhinovirus/Enterovirus Not Detected (NOT DETECT); Influenza A Not Detected (NOT DETECT); Influenza A H1 Not Detected (NOT DETECT); Influenza A H1-2009 Not Detected (NOT DETECT); Influenza A H3 Not Detected (NOT DETECT); Influenza B Not Detected (NOT DETECT); Mycoplasma Pneumoniae Not Detected (NOT DETECT); Parainfluenza Virus Type 1 Not Detected (NOT DETECT); Parainfluenza Virus Type 2 Not Detected (NOT DETECT); Parainfluenza Virus Type 3 Not Detected (NOT DETECT); Parainfluenza Virus Type 4 Not Detected (NOT DETECT); Respiratory Syncytial Virus A Not Detected (NOT DETECT); Respiratory Syncytial Virus B Not Detected (NOT DETECT); SARS-COV-2 Not Detected (NOT DETECT)
[2022-12-14] MEDS: morphine 4 mg/mL SDV 1 mL IVP (13:31)
--- NOTE | 2022-12-14 13:42 | PC.NURSE ---
Reported pt is on immunotherapy clinical trial #[id number] and also Nivolumab
[2022-12-14 13:54] LABS: Troponin 5 2HR 11.44 ng/L (0-15)
[2022-12-14 14:00] VITALS: BP 133/81; PULSE 79; RESP 16; O2SAT 94
[2022-12-14 14:22] LABS: Troponin 5 2HR Delta -0.56 ABS# (0-10)
[2022-12-14 14:51] VITALS: BP 131/82; PULSE 80; RESP 18; O2SAT 94
--- NOTE | 2022-12-15 11:27 | DCPLANNER ---
Addendum entered by Betty Pritchard 12/19/22 13:01: administrative assistant office manager received the following message from Coco Shelton with centralized scheduling: RE:?JUDIE HU? (1970) PHYSICIAN:? CHANDU CORRAL TEST:?US CV ECHO COMPLETE ([id number]) Good Morning; We were advised by [facility] ([place]) they are not allowed to set up a case for a test ordered by ER physician.? They are not considered a ?Permissible Ordering Provider? since utilization review requires order to be from the member?s personal care physician or the physician actually doing the test.? We will be making the above requested test ?inactive?. Please advise the patient?s PCP accordingly. Thank You administrative assistant office manager called patient to inform him of this, patient stated that he followed up with his physicians in [place]. Original Note: administrative assistant office manager had message to schedule an outpatient stress test for patient. administrative assistant office manager faxed signed order to centralized scheduling will call patient with appointment information.
== END 2022-12-14 14:53 | disposition home or self-care (01) ==
PROVIDERS: Emergency Provider Emergency Medicine; PCP Registered Nurse
DX: R51.9 Headache, unspecified (principal); R53.1 Weakness; R07.9 Chest pain, unspecified; E86.0 Dehydration; R42 Dizziness and giddiness; E07.9 Disorder of thyroid, unspecified; Z85.038 Personal history of other malignant neoplasm of large intestine; Z85.118 Personal history of other malignant neoplasm of bronchus and lung; Z79.84 Long term (current) use of oral hypoglycemic drugs; Z20.822 Contact with and (suspected) exposure to COVID-19
CPT/HCPCS: 36415; 70450; 71045; 80053; 81003; 83880; 84439; 84443; 84484; 85025; 87635; 93005; 96365; 96375; 99285; J1200; J1885; J2270; J2765; J3475; J7030; J8597

== ENCOUNTER 2023-07-31 23:42 | Emergency (ER) | payer BC, SELFPAY ==
[2023-07-31 23:45] VITALS: BP 163/90; PULSE 91; RESP 18; TEMP 37.4; O2SAT 96; BMI 32.3
[2023-08-01] VITALS (8 sets, daily range): BP systolic 145–178; BP diastolic 86–114; PULSE 74–79; RESP 17; O2SAT 92–97
--- NOTE | 2023-08-01 00:18 | XRR_ITS ---
PROCEDURE INFORMATION: Exam: XR Chest Exam date and time: 08/01/2023 12:36 AM Age: 53 years old Clinical indication: Cough and fever and shortness of breath; Patient HX: [place] with SOB and fever. History of colorectal cancer with lung mets. TECHNIQUE: Imaging protocol: Radiologic exam of the chest. Views: 1 view. COMPARISON: CR XR chest 1V portable [id number] 12/14/2022 11:04 AM FINDINGS: Tubes, catheters and devices: There is a right subclavian chest port in position, the tip terminates in the SVC. Lungs: No consolidation. Pleural spaces: No pleural effusion. No pneumothorax. Heart/Mediastinum: No cardiomegaly. Bones/joints: Unremarkable. Intraperitoneal space: There is no free intraperitoneal air. XR/XR chest 1V portable [id number] IMPRESSION: No acute cardiopulmonary disease.
[2023-08-01 00:40] LABS: Eosinophils % 1.2 %; Hematocrit 28.2 % (37-53); Lymphocytes # 0.8 10^3/uL (0.8-4.8); Lymphocytes % 48.5 %; Mean Corpuscular Hemoglobin 32.7 pg (27-33); Mean Corpuscular Volume 99.3 fl (82-101); Mean Platelet Volume 9.3 fL (7.4-10.4); Monocytes # 0.1 10^3/uL (0.2-0.9); Monocytes % 6.1 %; Neutrophils % 43.6 %; Nucleated Red Blood Cells % 0 %; Platelet Count 172 10^3/cmm (157-399); Red Blood Count 2.84 10^6/uL (3.85-5.65); Red Cell Distribution Width 14.7 % (12.1-15.1); White Blood Count 1.63 10^3/uL (3.29-11.43)
[2023-08-01 01:03] LABS: Alanine Aminotransferase 28 U/L (0-41); Alkaline Phosphatase 125 U/L (40-130); Aspartate Amino Transferase 31 U/L (0-40); Blood Urea Nitrogen 14 mg/dL (6-20); Calcium 8.8 mg/dL (8.5-10.5); Carbon Dioxide 29 mmol/L (22-29); Chloride 102 mmol/L (98-107); Globulin 2.7 g/dL (1.3-4.6); Glomerular Filtration Rate 88.6 mL/min (90-130); Glucose 145 mg/dL (65-115); Osmolality Calculated 291 mOsm/kg (285-295); Sodium 139 mmol/L (136-145); Total Bilirubin 0.8 mg/dL (0.15-1.2); Total Protein 6.7 g/dL (6.6-8.7)
[2023-08-01 01:04] LABS: Lactic Sepsis W/Reflex 1.6 mmol/L (0.5-2.2)
[2023-08-01 01:18] LABS: Slide Review Slide Review Perform
[2023-08-01 01:19] LABS: Neutrophils # 0.71 10^3/uL (1.8-7.7)
[2023-08-01] MEDS: hydrocortisone 100 mg/2 mL SDV IVP (01:50)
[2023-08-01] MEDS: ipratropium-albuterol 3 mL Neb INHALATION (02:03)
[2023-08-01] MEDS: filgrastim-sndz 300 mcg/0.5 mL Syringe SUBCUT (02:39)
--- NOTE | 2023-08-01 16:22 | W.ED.COVID ---
HPI - COVID General: Chief Complaint: COVID symptoms Stated Complaint: Stage 4 Cancer\Fever\Covid + test at Home Time Seen by Provider: 08/01/23 00:17 Source: patient and family History of Present Illness: 53 year old male the history of stage 4 colon cancer undergoing active chemotherapy with Avastin purity presents with a fever today. He has had cough and congestion as well. Minimal shortness of breath. Cough is not productive. He does not feel as though he is wheezing. His last chemotherapy induction was on Thursday. Fever was significant at home, but improved with Tylenol. No GI symptoms such as vomiting or diarrhea. No known sick contacts. He did take a COVID-19 test at home and it was positive. COVID 19 common symptoms: positive fever(s), chills, non-productive cough and dyspnea; negative throat pain, nausea, vomiting or diarrhea COVID 19 other sytmptoms: negative chest pain COVID Results: SARS-CoV-2 Antigen (Rapid) Negative (Negative) 09/17/21 22:29 Nasal/Oral Coronavirus 2019 PCR Not detected 12/26/20 14:42 SARS-CoV-2 (PCR) Not detected (NOT DETECT) 12/14/22 11:04 Coronavirus Type 229E (PCR) Not detected (NOT DETECT) 12/14/22 11:04 Review of Systems Const: Reports: fever(s) and chills ENMT: Denies: throat pain Card: Denies: chest pain Resp: Reports: dyspnea and non-productive cough; Denies: wheezing GI: Denies: abdominal pain, nausea, vomiting or diarrhea : Denies: flank pain or difficulty urinating Skin/Breast: Denies: rash PFSH ED PFSH: Medical History Colorectal cancer Lung metastases Social History Smoking and tobacco/nicotine status: never used tobacco/nicotine Alcohol intake: never Substance/Drug Use: never Physical Exam Const: COMMON NORMALS: no acute distress GENERAL APPEARANCE: cooperative; not ill appearing and not frail appearing HENMT: COMMON NORMALS: normocephalic, atraumatic and Normal external nose present HEAD & SCALP: normocephalic and atraumatic FACE & SINUS: normal facial exam and face symmetric NOSE: Normal external nose present Eye: COMMON NORMALS: Equal, round and reactive pupils present and EOMs intact bilaterally PUPIL: Yes Equal, round and reactive pupils present Neck/C-Spine: GENERAL: Yes trachea midline Chest: CHEST: Yes Symmetrical chest wall rise Resp: COMMON NORMALS: normal respiratory effort, No retractions, No use of accessory muscles and clear to auscultation bilaterally AUSCULTATION: clear to auscultation bilaterally Cardio: COMMON NORMALS: regular rate and regular rhythm RATE: regular rate RHYTHM: regular rhythm GI: COMMON NORMALS: Normal to inspection, nondistended, normoactive bowel sounds present Extremity: COMMON NORMALS: no pedal edema Neuro: JENNA COMA SCALE: document GCS findings [place] coma scale eye opening: Spontaneous Jenna coma scale verbal response: Orientated [place] coma scale motor response: Obey commands Jenna coma scale total score: 15 SENSORY EXAM: Yes extremities (intact) Psych: COMMON NORMALS: speech normal SPEECH: Yes normal speech Skin: COMMON NORMALS: no rashes or lesions noted GENERAL SKIN EXAM: no rashes or lesions noted Course Vital Signs: Vital signs: Vital Signs Temperature 99.4 F 07/31/23 23:45 Pulse Rate 76 08/01/23 02:59 Respiratory Rate 17 08/01/23 02:03 Blood Pressure 153/95 08/01/23 02:59 Pulse Oximetry 95 08/01/23 02:59 Oxygen Delivery Me thod Room Air 08/01/23 02:30 [facility] [place] - COVID Medical Decision Making The patient's vital signs have been good here. He has normal oxygenation on room air. He does have sleep apnea, so desaturations occur when he falls asleep here, but is otherwise normal. He is in no distress. He is mildly anemic. He is also leukopenic with neutropenia present. his ANC is 700. Near critical. C reactive protein is 68. Lactic acid is normal. other labs not remarkable. Chest X-rays negative by radiology read. He is given a stress dose of hydrocortisone given a history of adrenal insufficiency here. He will continue oral hydrocortisone for the next four to five days. He is given paxlovid for treatment of COVID-19. He will continue the doxycycline he was placed on at urgent care earlier. This is for coverage due to his neutropenia. He was given one shot of neupogen here to recover his neutrophil count while fighting active infection. He will call his oncologist on Thursday. He knows to return for worsening symptoms. Lab Data 08/01/23 00:32 10 00:32 Radiology Impressions Chest X-Ray 08/01/23 00:18 IMPRESSION: No acute cardiopulmonary disease. Laboratory Results WBC 1.63 10^3/uL (3.29-11.43) L 08/01/23 00:32 RBC 2.84 10^6/uL (3.85-5.65) L 08/01/23 00:32 Hgb 9.30 g/dL (11.27-16.99) L 08/01/23 00:32 Hct 28.2 % (37-53) L 08/01/23 00:32 MCV 99.3 fl (82-101) 08/01/23 00:32 MCH 32.7 pg (27-33) 08/01/23 00:32 MCHC 33.0 g/dL (30-55) 08/01/23 00:32 RDW 14.7 % (12.1-15.1) 08/01/23 00:32 Plt Count 172 10^3/cmm (157-399) 08/01/23 00:32 MPV 9.3 fL (7.4-10.4) 08/01/23 00:32 Neut % (Auto) 43.6 % 08/01/23 00:32 Lymph % (Auto) 48.5 % 08/01/23 00:32 [place] % (Auto) 6.1 % 08/01/23 00:32 Eos % (Auto) 1.2 % 08/01/23 00:32 Baso % (Auto) 0.0 % 08/01/23 00:32 Neut # (Auto) 0.71 10^3/uL (1.8-7.7) L* 08/01/23 00:32 Lymph # (Auto) 0.8 10^3/uL (0.8-4.8) 08/01/23 00:32 [place] # (Auto) 0.1 10^3/uL (0.2-0.9) L 08/01/23 00:32 Eos # (Auto) 0.0 10^3/uL (0.0-0.8) 08/01/23 00:32 Baso # (Auto) 0.0 10^3/uL (0.0-0.1) 08/01/23 00:32 Nucleated RBC % (auto) 0 % 08/01/23 00:32 Nucleated RBCs # 0.0 /100WBC 08/01/23 00:32 Sodium 139 mmol/L (136-145) 08/01/23 00:32 Potassium 4.0 mmol/L (3.5-5.1) 08/01/23 00:32 Chloride 102 mmol/L (98-107) 08/01/23 00:32 Carbon Dioxide 29 mmol/L (22-29) 08/01/23 00:32 Anion Gap 12.0 (5-19) 08/01/23 00:32 BUN 14 mg/dL (6-20) 08/01/23 00:32 Creatinine 0.9 mg/dL (0.7-1.2) 08/01/23 00:32 GFR Calculation 88.6 mL/min (90-130) L 08/01/23 00:32 Glucose 145 mg/dL (65-115) H 08/01/23 00:32 Calculated Osmolality 291 mOsm/kg (285-295) 08/01/23 00:32 Lactic Acid 1.6 mmol/L (0.5-2.2) 08/01/23 00:32 Calcium 8.8 mg/dL (8.5-10.5) 08/01/23 00:32 Total Bilirubin 0.8 mg/dL (0.15-1.2) 08/01/23 00:32 AST 31 U/L (0-40) 08/01/23 00:32 ALT 28 U/L (0-41) 08/01/23 00:32 Alkaline Phosphatase 125 U/L (40-130) 08/01/23 00:32 C-Reactive Protein 68.0 mg/L (0.0-4.9) H 08/01/23 00:32 Total Protein 6.7 g/dL (6.6-8.7) 08/01/23 00:32 Albumin 4.0 g/dL (3.5-5.2) 08/01/23 00:32 Globulin 2.7 g/dL (1.3-4.6) 08/01/23 00:32 Procalcitonin 0.10 ng/mL (0-0.5) 08/01/23 00:32 SARS-CoV-2 Antigen (Rapid) Negative (Negative) 09/17/21 22:29 Nasal/Oral Coronavirus 2019 PCR Not detected 12/26/20 14:42 SARS-CoV-2 (PCR) Not detected (NOT DETECT) 12/14/22 11:04 Coronavirus Type 229E (PCR) Not detected (NOT DETECT) 12/14/22 11:04 XR interpretation done by ED provider, pending radiology final review Discharge Plan Discharge Patient Disposition: Home Clinical Impression: COVID-19, Neutropenia Condition: Stable Prescriptions: New Paxlovid 300 mg (150 mg x 2)-100 mg tablets,dose pack See Rx Instructions .ROUTE .COMPLEX Qty: 30 0RF Rx Instructions: take TWO 150 mg tablets of nirmatrelvir with ONE 100 mg tablet of ritonavir twice daily for 5 days albuterol sulfate 90 mcg/actuation HFA aerosol inhaler 2 inh INHALATION Q4H PRN (Reason: shortness of breath or wheezing) Qty: 6.7 1RF No Action lisinopril 5 mg tablet 5 mg PO BID@0700,2100 pantoprazole 40 mg tablet,delayed release (DR/EC) 40 mg PO DAILY@0700 Qty: 30 2RF ondansetron HCl 8 mg tablet 8 mg PO Q8H PRN (Reason: Nausea And Vomiting (2nd)) metoprolol succinate 25 mg tablet extended release 24 hr 25 mg PO DAILY Qty: 30 0RF metformin 500 mg Tablet 1,000 mg PO BID zinc acetate 50 mg (zinc) Capsule 50 mg PO DAILY Zyrtec 10 mg Tablet 10 mg PO DAILY PRN (Reason: Allergy Symptoms) glyburide 5 mg Tablet 5 mg PO DAILY L-Lysine 1,000 mg Tablet 1,000 mg PO DAILY Compazine 10 mg Tablet 10 mg PO Q6H PRN (Reason: Nausea) tramadol 50 mg Tablet 50 mg PO Q6H PRN (Reason: Pain) Vitamin B-12 500 mcg Tablet 500 mcg PO DAILY Vitamin C 500 mg Tablet 500 mg PO DAILY levothyroxine 50 mcg Tablet 50 mcg PO DAILY gabapentin 300 mg Capsule 300 mg PO TID Vitamin D3 25 mcg (1,000 unit) Capsule 25 mcg PO DAILY Xarelto 20 mg Tablet 20 mg PO DAILY Rx Instructions: must administer with evening meal Discharge Orders: Discharge ED (Routine); Ordered 08/01/23 Ordered By: Kush Riddle Referrals: Keisha Lebron FNP [Primary Care Provider] - Patient Instructions: Neutropenia (ED), COVID-19 (Coronavirus Disease 2019) (ED) Activity Restrictions/Additional Instructions: Continue your doxycycline. Other medications as directed. Return for worsening shortness of breath, inability to control fever, any other concerning symptoms. Coding Level of Care Code ED [place] for Stevo Marie
== END 2023-08-01 03:00 | disposition home or self-care (01) ==
PROVIDERS: Emergency Provider Emergency Medicine; PCP Nurse Practitioner Family
DX: U07.1 COVID-19 (principal); D70.9 Neutropenia, unspecified; Z79.84 Long term (current) use of oral hypoglycemic drugs; C19 Malignant neoplasm of rectosigmoid junction; C78.00 Secondary malignant neoplasm of unspecified lung; Z79.60 Long term (current) use of unspecified immunomodulators and immunosuppressants
CPT/HCPCS: 36415; 71045; 80053; 83605; 84145; 85025; 86140; 87040; 94640; 96372; 96374; 99284; J1720; Q5101

== ENCOUNTER 2023-09-30 11:32 | Observation (INO) | payer BC, SELFPAY ==
[2023-09-30] VITALS (11 sets, daily range): BP systolic 142–207; BP diastolic 73–121; PULSE 67–102; RESP 17–22; TEMP 36.6–37.3; O2SAT 89–95; BMI 32.7
--- NOTE | 2023-09-30 11:33 | XRR_ITS ---
PROCEDURE INFORMATION: Exam: XR Chest Exam date and time: 09/30/2023 11:43 AM Age: 53 years old Clinical indication: Cough and fever; Prior surgery; Surgery date: 6+ months; Surgery type: Port; Patient HX: HX of colorectal and lung cancer TECHNIQUE: Imaging protocol: Radiologic exam of the chest. Views: 1 view. COMPARISON: CR XR chest 2V* [id number] 08/12/2023 10:58 AM FINDINGS: Lungs: Unremarkable. No consolidation. Pleural spaces: Unremarkable. No pleural effusion. No pneumothorax. Heart/Mediastinum: Unremarkable. No cardiomegaly. Bones/joints: Unremarkable. Other findings: Unchanged support line. XR/XR chest 1V portable [id number] IMPRESSION: No acute findings.
--- NOTE | 2023-09-30 12:19 | ED_ITS ---
HPI - URI/Sore Throat 2 General: Chief Complaint: Upper Respiratory Infection Stated Complaint: cough, congestion, vomiting, fever Time Seen by Provider: 09/30/23 12:02 Source: patient Mode of arrival: ambulatory Limitations: no limitations History of Present Illness: 53-year-old male has a history of colon cancer is currently on chemo states last chemo was 10 days ago. He has had adrenal insufficiency as well from his chemo. He states that starting last night he is having low-grade fevers along with cough congestion feeling nauseous just feeling ill. He denies any vomiting has had some mild shortness of breath denies any pain anywhere. Associated symptoms: Reports chills, nasal congestion and nausea; Deny abdominal pain, chest pain, diarrhea, fever(s), headache(s) or vomiting Review of Systems 2 Const: Reports: chills, body aches, fatigue and malaise; Denies: fever(s) or change in appetite Eyes: Denies: eye discomfort ENMT: Reports: nasal congestion; Denies: throat pain or dental pain Card: Denies: chest pain Resp: Reports: non-productive cough; Denies: dyspnea GI: Reports: nausea; Denies: abdominal pain, vomiting or diarrhea : Denies: dysuria Musc: Denies: neck pain or back pain Skin/Breast: Denies: rash Neuro: Denies: headache(s) PFSH ED 2 PFSH: Medical History Lung metastases Colorectal cancer Social History Smoking and tobacco/nicotine status: never used tobacco/nicotine Alcohol intake: never Substance/Drug Use: never Physical Exam 2 Const: COMMON NORMALS: no acute distress, patient oriented x3 and healthy appearing HENMT: COMMON NORMALS: normocephalic and atraumatic HEAD & SCALP: n ormocephalic and atraumatic Eye: COMMON NORMALS: Equal, round and reactive pupils present and EOMs intact bilaterally PUPIL: Yes Equal, round and reactive pupils present Neck/C-Spine: COMMON NORMALS: full ROM and supple Chest: COMMONS NORMALS: normal inspection of the chest and normal palpation of entire chest wall Resp: COMMON NORMALS: normal respiratory effort, No retractions, No use of accessory muscles and clear to auscultation bilaterally AUSCULTATION: clear to auscultation bilaterally Cardio: COMMON NORMALS: regular rate, regular rhythm and No murmurs present (Cardio) RATE: regular rate RHYTHM: regular rhythm GI: COMMON NORMALS: Normal to inspection, nondistended, normoactive bowel sounds present, Soft to palpation, non-tender and no masses PALPATION: Yes Soft to palpation Extremity: COMMON NORMALS: normal to inspection and full ROM Neuro: COMMON NORMALS: patient oriented x3, moves all extremities and no focal motor deficits Psych: COMMON NORMALS: mental status grossly normal, Normal thought process present and cooperative THOUGHT PROCESS: Normal thought process present Skin: COMMON NORMALS: no rashes or lesions noted and no wounds GENERAL SKIN EXAM: no rashes or lesions noted Course 2 Vital Signs: Vital signs: Vital Signs Temperature 99.2 F 09/30/23 11:43 Pulse Rate 91 09/30/23 14:23 Respiratory Rate 18 09/30/23 14:23 Blood Pressure 144/91 09/30/23 14:23 Pulse Oximetry 95 09/30/23 14:23 Oxygen Delivery Me thod Room Air 09/30/23 13:16 MDM - URI/Sore Throat Medical Decision Making Patient presents here with a neutropenic fever cough congestion patient had blood cultures drawn and started on antibiotics I spoke to the hospitalist for admit for observation. Medical Records I reviewed the patient's medical records. Lab Data I reviewed the patient's lab results. 09/30/23 12:21 09/30/23 12:21 Radiology Impressions Chest X-Ray 09/30/23 11:33 IMPRESSION: No acute findings. Laboratory Results WBC 1.56 10^3/uL (3.29-11.43) L 09/30/23 12:21 RBC 3.19 10^6/uL (3.85-5.65) L 09/30/23 12:21 Hgb 10.20 g/dL (11.27-16.99) L 09/30/23 12: Hct 31.4 % (37-53) L 09/30/23 12:21 MCV 98.4 fl (82-101) 09/30/23 12: MCH 32.0 pg (27-33) 09/30/23 12: MCHC 32.5 g/dL (30-55) 09/30/23 12:21 RDW 15.9 % (12.1-15.1) H 09/30/23 12:21 Plt Count 154 10^3/cmm (157-399) L 09/30/23 12:21 MPV 10.5 fL (7.4-10.4) H 09/30/23 12:21 Neut % (Auto) 25.0 % 09/30/23 12:21 Lymph % (Auto) 62.8 % 09/30/23 12:21 [place] % (Auto) 10.9 % 09/30/23 12:21 Eos % (Auto) 1.3 % 09/30/23 12:21 Baso % (Auto) 0.0 % 09/30/23 12:21 Neut # (Auto) 0.39 10^3/uL (1.8-7.7) L* 09/30/23 12:21 Lymph # (Auto) 1.0 10^3/uL (0.8-4.8) 09/30/23 12:21 [place] # (Auto) 0.2 10^3/uL (0.2-0.9) 09/30/23 12:21 Eos # (Auto) 0.0 10^3/uL (0.0-0.8) 09/30/23 12:21 Baso # (Auto) 0.0 10^3/uL (0.0-0.1) 09/30/23 12: Nucleated RBC % (auto) 0 % 09/30/23 12: Nucleated RBCs # 0.0 /100WBC 09/30/23 12:21 Sodium 139 mmol/L (136-145) 09/30/23 12:21 Potassium 4.0 mmol/L (3.5-5.1) 09/30/23 12:21 Chloride 99 mmol/L (98-107) 09/30/23 12:21 Carbon Dioxide 30 mmol/L (22-29) H 09/30/23 12:21 Anion Gap 14.0 (5-19) 09/30/23 12:21 BUN 13 mg/dL (6-20) 09/30/23 12:21 Creatinine 0.8 mg/dL (0.7-1.2) 09/30/23 12:21 GFR Calculation 101.5 mL/min (90-130) 09/30/23 12:21 Glucose 137 mg/dL (65-115) H 09/30/23 12:21 Calculated Osmolality 290 mOsm/kg (285-295) 09/30/23 12:21 Calcium 9.0 mg/dL (8.5-10.5) 09/30/23 12:21 GGT 64 U/L (8-61) H 09/30/23 12:21 AST 26 U/L (0-40) 09/30/23 12:21 ALT 31 U/L (0-41) 09/30/23 12:21 Lactate Dehydrogenase 212 U/L (135-225) 09/30/23 12:21 Influenza Type A Ag negative (Negative) 09/30/23 12:14 Influenza Type B Ag negative (Negative) 09/30/23 12:14 SARS-CoV-2 Ag (Rapid) negative (Negative) 09/30/23 12:14 All radiology interpretation(s) finalized by discharge Discharge Plan Discharge Patient Disposition: Placed in Observation Clinical Impression: Neutropenic fever Coding Level of Care Code ED Stock [employer]ker for Stevo Marie
[2023-09-30 12:33] LABS: Eosinophils % 1.3 %; Hematocrit 31.4 % (37-53); Lymphocytes % 62.8 %; Mean Corpuscular HGB Conc 32.5 g/dL (30-55); Mean Corpuscular Volume 98.4 fl (82-101); Mean Platelet Volume 10.5 fL (7.4-10.4); Monocytes # 0.2 10^3/uL (0.2-0.9); Monocytes % 10.9 %; Nucleated Red Blood Cells % 0 %; Platelet Count 154 10^3/cmm (157-399); Red Blood Count 3.19 10^6/uL (3.85-5.65); Red Cell Distribution Width 15.9 % (12.1-15.1); White Blood Count 1.56 10^3/uL (3.29-11.43)
[2023-09-30 12:37] LABS: Influenza A by IFA negative (Negative); Influenza B by IFA negative (Negative)
[2023-09-30 12:39] LABS: SARS Covid-2 Antigen negative (Negative)
[2023-09-30 12:44] LABS: Neutrophils # 0.39 10^3/uL (1.8-7.7)
[2023-09-30 12:56] LABS: Blood Urea Nitrogen 13 mg/dL (6-20); Carbon Dioxide 30 mmol/L (22-29); Chloride 99 mmol/L (98-107); Glomerular Filtration Rate 101.5 mL/min (90-130); Glucose 137 mg/dL (65-115); Osmolality Calculated 290 mOsm/kg (285-295); Sodium 139 mmol/L (136-145)
[2023-09-30 13:15] LABS: Alanine Aminotransferase 31 U/L (0-41); Aspartate Amino Transferase 26 U/L (0-40); Gamma Glutamyl Transferase 64 U/L (8-61); Lactate Dehydrogenase 212 U/L (135-225)
[2023-09-30] MEDS: hyDRALAzine 20 mg/mL INJ 1 mL 10 MG IVP (13:21)
[2023-09-30] MEDS: ondansetron 2 mg/ML SDV 2 mL 4 MG IVP (13:23)
[2023-09-30] MEDS: dexamethasone 10 mg/mL INJ IVP (13:24)
[2023-09-30] MEDS: acetaminophen 500 mg Tablet 1000 MG PO (13:37)
[2023-09-30] MEDS: aztreonam 2,000 MG in sodium chloride 0.9% (plus) 100 ML 200 MG IV (13:39)
[2023-09-30] MEDS: vancomycin 1,000 MG in sodium chloride 0.9% 250 ML 250 MG IV (14:17)
--- NOTE | 2023-09-30 15:44 | P.HP_ITS ---
Providers/Chief Complaint 2 Primary Care Provider: CYNTHIA Harrison Chief Complaint: cough, congestion, vomiting, fever History of Present Illness Pleasant 53-year-old gentleman with history of colon cancer, last chemotherapy about 10 days ago, came into emergency room due to having malaise, chills, fever, cough, nausea, vomiting. He has not been able to reliably keep his medications down. He has adrenal insufficiency history, check hydrocortisone in the morning but had vomited subsequently. Review of Systems 2 Const: Reports: fever(s), chills, body aches and malaise Card: Denies: chest pain, edema, pre-syncope or dyspnea on exertion Resp: Denies: dyspnea, productive cough, change in phlegm color or hemoptysis GI: Reports: nausea and vomiting; Denies: abdominal pain, diarrhea, constipation, hematochezia or melena : Denies: flank pain, difficulty urinating, urinary frequency or hematuria Musc: Denies: back pain, joint swelling or joint redness Skin/Breast: Reports: dry skin; Denies: rash or new lesions Neuro: Denies: numbness in extremities, weakness in extremities, confusion or seizure-like activity Endo: Denies: polyuria or polydipsia Medications/Allergies Home Medications Medication Instructions Recorded Confirmed Last Taken Type ondansetron HCl 8 mg tablet 8 mg PO Q8H PRN Nausea And 01/10/21 09/30/23 01/23/21 History Vomiting (2nd) pantoprazole 40 mg tablet,delayed 40 mg PO DAILY@0700 #30 tabs 03/14/21 09/30/23 09/30/23 Rx release ascorbic acid (vitamin C) 500 mg 500 mg PO DAILY 12/14/22 09/30/23 09/30/23 History tablet (Vitamin C) cetirizine 10 mg tablet (Zyrtec) 10 mg PO DAILY Allergy Symptoms 12/14/22 09/30/23 09/29/23 History cholecalciferol (vitamin D3) 25 25 mcg PO DAILY 12/14/22 09/30/23 09/30/23 History mcg (1,000 unit) capsule (Vitamin D3) cyanocobalamin (vitamin B-12) 500 500 mcg PO DAILY 12/14/22 09/30/23 09/30/23 History mcg tablet (Vitamin B-12) gabapentin 300 mg capsule 300 mg PO TID 12/14/22 09/30/23 09/30/23 History metformin 500 mg tablet 1,000 mg PO BID 12/14/22 09/30/23 09/30/23 History prochlorperazine maleate 10 mg 10 mg PO BID PRN Nausea 12/14/22 09/30/23 Unknown History tablet (Compazine) zinc acetate 50 mg (zinc) capsule 50 mg PO DAILY 12/14/22 09/30/23 09/29/23 History albuterol sulfate 90 mcg/actuation 2 inh inhalation Q4H PRN shortness 08/01/23 09/30/23 Unknown Rx aerosol inhaler of breath or wheezing #6.7 grams apixaban 5 mg tablet (Eliquis) 5 mg PO BID 09/30/23 09/30/23 09/30/23 History hydrocortisone 10 mg tablet See Rx Instructions .Route .COMPLEX 09/30/23 09/30/23 09/30/23 History insulin aspart See Rx Instructions .Route .COMPLEX 09/30/23 09/30/23 09/30/23 History (niacinamide)(U-100) 100 unit/mL(3 mL) subcutaneous pen (Fiasp FlexTouch U-100 Insulin) insulin glargine 100 unit/mL (3 18 unit SUBCUT BEDTIME 09/30/23 09/30/23 09/29/23 History mL) subcutaneous pen levothyroxine 200 mcg tablet 200 mcg PO DAILY 09/30/23 09/30/23 09/30/23 History levothyroxine 25 mcg tablet 12.5 mcg PO DAILY 09/30/23 09/30/23 09/30/23 History lisinopril 40 mg tablet 40 mg PO DAILY 09/30/23 09/30/23 09/30/23 History metoprolol succinate 50 mg 50 mg PO DAILY 09/30/23 09/30/23 09/30/23 History tablet,extended release 24 hr trifluridine 20 mg-tipiracil 8.19 See Rx Instructions .Route .COMPLEX 09/30/23 09/30/23 Unknown History mg tablet (Lonsurf) Allergies Allergy/AdvReac Type Severity Reaction Status Date / Time Penicillins Allergy Mild HIVES Verified 09/30/23 11:47 PFSH Acute 2 PFSH: Medical History Adrenal insufficiency Lung metastases Colorectal cancer Surgical History History of tonsillectomy History of knee surgery Social History Smoking and tobacco/nicotine status: never used tobacco/nicotine Alcohol intake: never Substance/Drug Use: never Vitals/I&O/Wt Last Vital Signs Temp 99.2 F 09/30/23 11:43 Pulse 91 09/30/23 14:23 Resp 18 09/30/23 14:23 BP 144/91 09/30/23 14:23 Pulse Ox 95 09/30/23 14:23 O2 Del Method Room Air 09/30/23 13:16 09/30/23 09/30/23 09/30/23 06:59 14:59 22:59 Intake Total 100 / 100 Balance 100 / 100 Weight last 48 hrs Weight 103.419 kg Physical Exam 2 Narrative: Accompanied by his . Const: COMMON NORMALS: patient oriented x3 and alert GENERAL APPEARANCE: c ooperative ORIENTATION/CONSCIOUSNESS: Yes awake OTHER: Malaised. HENMT: COMMON NORMALS: oropharynx normal Neck/C-Spine: COMMON NORMALS: no JVD Resp: COMMON NORMALS: normal respiratory effort and clear to auscultation bilaterally AUSCULTATION: clear to auscultation bilaterally Cardio: COMMON NORMALS: no JVD, regular rhythm, S1 normal heart sound present, S2 normal heart sound present and No murmurs present (Cardio) RHYTHM: regular rhythm HEART SOUNDS: S1 normal heart sound present and S2 normal heart sound present GI: COMMON NORMALS: Normal to inspection, nondistended, normoactive bowel sounds present, Soft to palpation and non-tender PALPATION: Yes Soft to palpation Extremity: COMMON NORMALS: no joint enlargement and no pedal edema Neuro: COMMON NORMALS: patient oriented x3 and moves all extremities S ENSORIUM/ORIENTATION: Yes alert Skin: COMMON NORMALS: no rashes or lesions noted GENERAL SKIN EXAM: no rashes or lesions noted Data 09/30/23 12:21 09/30/23 12:21 Micro: Microbiology 09/30/23 12:28 Blood Culture - Preliminary Blood SPECIMEN COLLECTED 09/30/23 12:21 Blood Culture - Preliminary Blood SPECIMEN COLLECTED A&P Assessment and plan (1) Neutropenic fever: Malaise, chills, fever, cough, nausea or vomiting. No diarrhea. Reviewed vitals. Chest x-ray reviewed, noted no focal pneumonia. Rapid influenza and COVID antigens reviewed, negative. Respiratory panel is requested. Maintain on isolation for now with suspicion for viral illness. However, febrile with severe neutropenia, ANC 390, discussed with him and spouse for now continuing empiric antibiotics, he states has history of penicillin allergy, cannot continue aztreonam reports had a reaction in childhood with his throat closing, although so far tolerated vancomycin. Usually would avoid however, it appears may have lost his allergy. Discussed with him and his spouse. Consider follow- up allergy testing. With immunocompromised state with severe neutropenia at risk of severe infection, severe course of illness, sepsis or complications. Blood cultures have been sent, follow-up. Reviewed CBC, CMP. Reviewed ER documentation. Discussed with ER physician. Maintain neutropenic precautions. Will obtain acute abdominal series with acute nausea and vomiting, although otherwise abdominal exam is nonacute. Noted mild elevation of GGT, possibly secondary to dehydration mild cholestasis, will assess with right upper quadrant ultrasound. Currently unable to tolerate oral intake, will give gentle IV hydration, PPI, antiemetics as needed, for now trial of clear liquids. (2) Adrenal insufficiency: Received a dose of Decadron. With history of adrenal insufficiency, they state he takes hydrocortisone at home 30 mg in the morning, 20 in the afternoon, as he is at risk of adrenal crisis, will increase the doses while in hospital, as well as since he is not able to keep down his medications, will switch to IV. Plan Controlled hypertension: Blood pressures were elevated on presentation, up to 200 systolic, 100s diastolic. Possible hypertensive emergency with symptomatic hypotension, received IV push hydralazine with improvement. Will continue his metoprolol. Hold lisinopril for now given nausea vomiting, poor oral intake At risk of TATYANA. Reassess blood pressures. Metastatic colon cancer: Last chemotherapy about 10 days ago. DM2:, Check x-ray Continue long-acting insulin as well as sliding scale consistent carb diet for now clear liquid. Portacath related deep venous thrombosis: eliquis. Currently unable to reliably tolerate medications will switch to therapeutic Lovenox for now. Attestations 2 Medical Necessity Statement*: Is seen observation for additional assessment management of febrile severe neutropenia angiomata with underlying metastatic colon cancer. Diagnoses Neutropenic fever D70.9; R50.81 Adrenal insufficiency E27.40
[2023-09-30 15:51] LABS: Adenovirus Not Detected (NOT DETECT); Chlamydia Pneumoniae Not Detected (NOT DETECT); Coronavirus 229E,HKU1,NL63,OC4 Not Detected (NOT DETECT); Human Metapneumovirus Not Detected (NOT DETECT); Human Rhinovirus/Enterovirus Not Detected (NOT DETECT); Influenza A Not Detected (NOT DETECT); Influenza A H1 Not Detected (NOT DETECT); Influenza A H1-2009 Not Detected (NOT DETECT); Influenza A H3 Not Detected (NOT DETECT); Influenza B Not Detected (NOT DETECT); Mycoplasma Pneumoniae Not Detected (NOT DETECT); Parainfluenza Virus Type 1 Not Detected (NOT DETECT); Parainfluenza Virus Type 2 Not Detected (NOT DETECT); Parainfluenza Virus Type 3 Not Detected (NOT DETECT); Parainfluenza Virus Type 4 Not Detected (NOT DETECT); Respiratory Syncytial Virus A Not Detected (NOT DETECT); Respiratory Syncytial Virus B Not Detected (NOT DETECT); SARS-COV-2 Not Detected (NOT DETECT)
--- NOTE | 2023-09-30 16:24 | US_ITS ---
WS: [id number] RIGHT UPPER QUADRANT ULTRASOUND HISTORY: N/V, elev GGT COMPARISON: 12/12/2020 Liver: 15.9 cm in length. Normal size liver and echogenicity. No bile duct dilatation or mass. Portal Vein: Normal hepatopetal flow with monophasic waveform. Gallbladder: Prior cholecystectomy. CBD: 0.5 cm Pancreas: Normal size and echogenicity. Right kidney: 12.1 cm in length. Normal size and echogenicity. No hydronephrosis or mass. Aorta and IVC: Unremarkable abdominal aorta and IVC. No ascites. IMPRESSION: 1. Prior cholecystectomy. 2. No bile duct dilatation. No mass.
--- NOTE | 2023-09-30 16:24 | XRR_ITS ---
PROCEDURE INFORMATION: Exam: XR Abdomen Exam date and time: 09/30/2023 5:48 PM Age: 53 years old Clinical indication: Nausea and vomiting; Prior surgery; Surgery date: 6+ months; Surgery type: Drain; Additional info: N/v TECHNIQUE: Imaging protocol: Radiologic exam of the abdomen. Views: 2 Views. Upright and supine views. COMPARISON: CT abdomen pelvis w con* [id number] 01/23/2021 10:06 PM FINDINGS: Tubes, catheters and devices: Catheter projects over the upper mid abdomen. Gastrointestinal tract: Normal. No bowel dilation. Large amount of stool in the colon. Intraperitoneal space: Normal. No free air. Bones/joints: Unremarkable for age. XR/XR abdomen min 2V [id number] IMPRESSION: No acute findings.
--- NOTE | 2023-09-30 17:08 | PC.PHAR ---
Pharmacokinetic dosing service Date: 09/30/23 Time: 1707 Objective: Patient: Bob Rosario Floor: 261-1 Age: 53 yo Serum creatinine: 0.8 mg/dL Height: 70.0 Inches Weight (kg): 103.419 Diagnosis: Relevant medical/social history: Cultures and sensitivities: Other labs: Assessment: IBW (kg): 73.00 Dosing wt(kg): 103.419 Estimated Creatinine clearance (ml/min): 111.5 CRCL method: Cockcroft and Gault using ibw(default). Drug selected: Vancomycin Loading dose (mg): 0 Vd (liters): 93.1 (factor used: 0.9 L/kg) Zeus (hr-1): 0.097 Half life (hrs): 7.15 Recommended dose: 1500 mg Interval: 12 hrs Infusion time (hrs): 1.5 Predicted peak (mcg/mL): 21.8 Predicted trough (mcg/mL): 7.87 Total body weight is being used for vancomycin dosing. Renal function is stable [ ] /unstable [ ] Recommendations: Give Vancomycin 1500 mg q 12 hrs with an expected Cpeak of 21.8 mcg/ml and an expected Ctrough of 7.87 mcg/ml Renal dosing of other antibiotics (review renal dosing of other medications and list guidelines here): Thank you for the consult, will continue to follow. Signature: Fabi Ram [facility]
[2023-09-30 17:11] LABS: Glucose Point of Care 326 mg/dL (70-110)
[2023-09-30] MEDS: insulin lispro 100 unit/1 mL SUBCUT ×2 (18:08→21:44)
[2023-09-30] MEDS: pantoprazole 40 mg SDV IVP (18:10)
[2023-09-30] MEDS: enoxaparin 100 mg/mL Syringe SUBCUT (18:11)
[2023-09-30] MEDS: lactated ringers 1,000 ML 100 ML IV (18:11)
[2023-10-01] MEDS: aztreonam 2,000 MG in sodium chloride 0.9% (plus) 100 ML 200 MG IV ×2 (01:28→13:22)
[2023-10-01] MEDS: vancomycin 1,500 MG/300 ML PIGGYBACK 200 MG IV (02:04)
[2023-10-01 04:00] VITALS: BP 156/88; PULSE 75; RESP 17; TEMP 36.4; O2SAT 94
[2023-10-01] MEDS: enoxaparin 100 mg/mL Syringe SUBCUT (05:43)
[2023-10-01] MEDS: lactated ringers 1,000 ML 100 ML IV (05:44)
[2023-10-01 05:47] LABS: Hematocrit 28.3 % (37-53); Mean Corpuscular HGB Conc 33.2 g/dL (30-55); Mean Corpuscular Hemoglobin 32.4 pg (27-33); Mean Corpuscular Volume 97.6 fl (82-101); Mean Platelet Volume 10.6 fL (7.4-10.4); Platelet Count 145 10^3/cmm (157-399); Red Cell Distribution Width 15.7 % (12.1-15.1); White Blood Count 1.48 10^3/uL (3.29-11.43)
[2023-10-01 05:53] VITALS: BMI 32.8
[2023-10-01 06:00] VITALS: PULSE 71
[2023-10-01 06:06] LABS: Alanine Aminotransferase 34 U/L (0-41); Alkaline Phosphatase 137 U/L (40-130); Anion Gap 13.7 (5-19); Aspartate Amino Transferase 22 U/L (0-40); Blood Urea Nitrogen 13 mg/dL (6-20); Calcium 9.5 mg/dL (8.5-10.5); Carbon Dioxide 25 mmol/L (22-29); Chloride 102 mmol/L (98-107); Creatinine Clr Calc Pharmacy 148.9589; Globulin 3.1 g/dL (1.3-4.6); Glomerular Filtration Rate 118.4 mL/min (90-130); Glucose 302 mg/dL (65-115); Magnesium 1.8 mg/dL (1.7-2.3); Osmolality Calculated 293 mOsm/kg (285-295); Potassium 4.7 mmol/L (3.5-5.1); Sodium 136 mmol/L (136-145); Total Bilirubin 0.9 mg/dL (0.15-1.2); Total Protein 7.1 g/dL (6.6-8.7)
[2023-10-01 07:32] VITALS: BP 169/79; PULSE 77; RESP 19; TEMP 36.6; O2SAT 96
[2023-10-01] MEDS: levothyroxine 25 mcg Tablet 12.5 MCG PO (08:09)
[2023-10-01] MEDS: metoprolol succinate ER (24 HR) 50 mg Tablet PO (08:09)
[2023-10-01] MEDS: levothyroxine 200 mcg Tablet PO (08:09)
[2023-10-01] MEDS: insulin lispro 100 unit/1 mL SUBCUT ×2 (08:10→11:49)
[2023-10-01 08:17] LABS: Slide Review Slide Review Perform
[2023-10-01 08:18] LABS: Absolute Segmented Neutrophil 0.5 10/cmm (1.6-7.1); Band Neutrophils Absolute 0.3 10^3/cmm (0.0-1.2); Eosinophils 0 %; Lymphocytes 30 %; Lymphocytes Absolute 0.5 10^3/cmm (1.2-3.4); Monocytes Absolute 0.2 10^3/cmm (0.1-0.6); Platelet Estimate Decreased (Normal); Segmented Neutrophils 34 %
[2023-10-01 08:19] LABS: Absolute Neutrophil 0.8 10^3/cmm (1.4-6.5)
[2023-10-01 08:22] LABS: Anisocytosis 1+; Macrocytosis 1+; Ovalocytes 1+; Poikilocytosis 1+; Total Cells Counted 50 (0-100)
[2023-10-01] MEDS: pantoprazole 40 mg SDV IVP (08:26)
[2023-10-01] MEDS: hydrocortisone 100 mg/2 mL SDV 60 MG IVP (08:26)
--- NOTE | 2023-10-01 10:32 | PC.CHAP ---
Pastoral Care Encounter/Spiritual Assessment Type of Contact [] Declined nursery teacher visit [] Patient/Family/Request visit [] Outpatient visit [] Follow-up visit [] Physician referral [] Code/Alert [x] Routine visit [] Staff referral [] Actively dying [] Patient sleeping [] Family support [] [] Out of room [] Palliative care [] [] Receiving care in room [] Pre-surgical visit [] Trauma [] Long length of stay [] ICU visit [x] Other: Islation Relational/Emotional Strength [] Patient feels connected with others/family/visitors/staff [] Distress [] Loneliness/isolation [] Abandonment Spirituality of Patient [] Person of Cari [] Attends Restoration of their Cari [] Believes in Prayer [] Reads Bible or Shinto materials [] There are Spiritual issues to be addressed Sales Service Coordinator Interventions [] Prayer [] Active listening [] Non-anxious presence [] Spiritual/emotional support [] Crisis/trauma care [] Spiritual counseling [] Bereavement support [] Provided bereavement packet [] Provided Bible/devotional materials [] Provided toy/stuffed animal, coloring book to patient or family member [] Provided Communion [] Anointing/Page [] Salvation [] Completed spiritual assessment [] Other: Impact on Illness or Injury [] Angry [] Fearful [] Anxious [] Often cries [] Exhaustion [] Unable to work [] Unable to attend sabianist [] Unable to walk/stand [] Unable to read [] Unable to drive [] Unable to eat/drink [] Unable to sleep [] Unable to be with family [] Patient intubated [] Other: Summary Islation Time spent with patient 5 mins
[2023-10-01 11:10] LABS: Glucose Point of Care 369 mg/dL (70-110)
[2023-10-01 11:23] VITALS: BP 159/72; PULSE 75; RESP 22; TEMP 36.7; O2SAT 97
--- NOTE | 2023-10-01 14:35 | PM.DCS ---
Discharge Providers Date of Admission: 09/30/23 15:55 Date of Discharge: October 01, 2023 Attending Provider at Admission: Nagi Zamora Attending Provider at Discharge: Nagi Zamora Primary Care Provider: CYNTHIA Harrison Diagnoses at Discharge Discharge Diagnosis (1) Neutropenic fever: Status: Acute (2) Adrenal insufficiency: Status: Acute Reason for Visit Reason for Visit: cough, congestion, vomiting, fever Brief History: Pleasant 53-year-old gentleman with history of colon cancer, last chemotherapy about 10 days ago, came into emergency room due to having malaise, chills, fever, cough, nausea, vomiting. He has not been able to reliably keep his medications down. He has adrenal insufficiency history, check hydrocortisone in the morning but had vomited subsequently. Hospital Course Hospital Course Overnight his symptoms have resolved, he is feeling much better, back to his usual self. Denies any new concerning symptoms. No further fever. Pancytopenia, WBC 1.48, hemoglobin 9.4, platelets 145, but with improvement neutrophils up to 800 ANC. Blood cultures been collected and pending. Respiratory viral panel negative. Gallbladder ultrasound with prior cholecystectomy otherwise unremarkable. Abdominal series x-ray without acute findings. She is tolerating oral intake. Maintaining blood pressure. Blood glucose elevated this morning after steroids, up into the 400s, he monitors glucose with his Dexcom, declined Lantus last night but took his own Lantus 20 units this morning and given insulin by sliding scale, glucose down to 246. He would like to discharge home. He understands that his neutropenia has not fully recovered and we have not identified a source of his symptoms, and thus discussed he is leaving somewhat earlier than I would like, but he is otherwise doing well and states no stricture in the hospital in case of any worsening or new concerning symptoms and has follow-up with his oncology team in [place] on Thursday. Does not appear to be symtpmatically adrenally insufficient, his hydrocortisone dose was increased transiently due to concern for acute illness while in the hospital, he is to continue slightly higher dose 40 mg in the morning, 30 mg in the afternoon for the next 2 days, then resume his usual dose. As he is still neutropenic, with recent fever, at this time he will continue on Levaquin until his appointment at which point his symptoms and blood counts can be reassessed. Physical Exam Narrative: Accompanied by his . Nausea and vomiting resolved. No diarrhea. No urinary symptoms. No headache, no new systemic symptoms or rashes. Const: COMMON NORMALS: patient oriented x3 and alert GENERAL APPEARANCE: cooperative ORIENTATION/CONSCIOUSNESS: Yes awake HENMT: COMMON NORMALS: oropharynx normal Neck/C-Spine: COMMON NORMALS: no JVD Resp: COMMON NORMALS: normal respiratory effort and clear to auscultation bilaterally AUSCULTATION: clear to auscultation bilaterally Cardio: COMMON NORMALS: no JVD, regular rhythm, S1 normal heart sound present, S2 normal heart sound present and No murmurs present (Cardio) RHYTHM: regular rhythm HEART SOUNDS: S1 normal heart sound present and S2 normal heart sound present GI: COMMON NORMALS: Normal to inspection, nondistended, normoactive bowel sounds present, Soft to palpation and non-tender PALPATION: Yes Soft to palpation Extremity: COMMON NORMALS: no joint enlargement and no pedal edema Neuro: COMMON NORMALS: patient oriented x3 and moves all extremities SENSORIUM/ORIENTATION: Yes alert Skin: COMMON NORMALS: no rashes or lesions noted GENERAL SKIN EXAM: no rashes or lesions noted Discharge Data Studies Completed and Pending Completed Studies During Hospitalization Category Date Time Status CXRP [XR chest 1V portable [id number]] Stat Exams 09/30/23 11:33 Completed XR abdomen min 2V [id number] Routine Exams 09/30/23 16:24 Completed US gall bladder [id number] Routine Ultrasound 09/30/23 16:24 Completed Pending at discharge Category Date Time Status Blood Culture Stat Lab 09/30/23 12:28 Results Complete Blood Count w/Auto AM LABS Lab 10/02/23 04:00 Ordered Complete Blood Count w/Auto AM LABS Lab 10/03/23 04:00 Ordered Comprehensive Metabolic Panel AM LABS Lab 10/02/23 04:00 Ordered Comprehensive Metabolic Panel AM LABS Lab 10/03/23 04:00 Ordered Vancomycin Trough Timed Lab 10/02/23 13:00 Ordered Radiology Impressions Chest X-Ray 09/30/23 11:33 IMPRESSION: No acute findings. Abdomen X-Ray 09/30/23 16:24 IMPRESSION: No acute findings. Laboratory Results WBC 1.48 10^3/uL (3.29-11.43) L 10/01/23 05:00 RBC 2.90 10^6/uL (3.85-5.65) L 10/01/23 05:00 Hgb 9.40 g/dL (11.27-16.99) L 10/01/23 05:00 Hct 28.3 % (37-53) L 10/01/23 05:00 MCV 97.6 fl (82-101) 10/01/23 05:00 MCH 32.4 pg (27-33) 10/01/23 05:00 MCHC 33.2 g/dL (30-55) 10/01/23 05:00 RDW 15.7 % (12.1-15.1) H 10/01/23 05:00 Plt Count 145 10^3/cmm (157-399) L 10/01/23 05:00 MPV 10.6 fL (7.4-10.4) H 10/01/23 05:00 Neut % (Auto) 25.0 % 09/30/23 12:21 Lymph % (Auto) Not Reportable 10/01/23 05:00 [place] % (Auto) Not Reportable 10/01/23 05:00 Eos % (Auto) 1.3 % 09/30/23 12:21 Baso % (Auto) 0.0 % 09/30/23 12:21 Neut # (Auto) Radiology Director 10/01/23 05:00 Lymph # (Auto) Not Reportable 10/01/23 05:00 [place] # (Auto) Not Reportable 10/01/23 05:00 Eos # (Auto) 0.0 10^3/uL (0.0-0.8) 09/30/23 12:21 Baso # (Auto) 0.0 10^3/uL (0.0-0.1) 09/30/23 12:21 Nucleated RBC % (auto) 0 % 09/30/23 12:21 Total Counted 50 (0-100) 10/01/23 05:00 Atypical Lymphs % 2.0 % (0-5) 10/01/23 05:00 Absolute Neutrophils 0.8 10^3/cmm (1.4-6.5) L* 10/01/23 05:00 Segmented Neutrophils 34 % 10/01/23 05:00 Abs Segm Neuts (Man) 0.5 10/cmm (1.6-7.1) L 10/01/23 05:00 Band Neutrophils 22.0 % 10/01/23 05:00 Abs Band Neuts (Man) 0.3 10^3/cmm (0.0-1.2) 10/01/23 05:00 Absolute Lymphocytes 0.5 10^3/cmm (1.2-3.4) L 10/01/23 05:00 Lymphocytes (Manual) 30 % 10/01/23 05:00 Monocytes (Manual) 12.0 % 10/01/23 05:00 Absolute Monocytes 0.2 10^3/cmm (0.1-0.6) 10/01/23 05:00 Eosinophils (Manual) 0 % 10/01/23 05:00 Absolute Eosinophils 0.0 10^3/cmm (0.0-0.7) 10/01/23 05:00 Basophils (Manual) 0.0 % 10/01/23 05:00 Absolute Basophils 0.0 10^3/cmm (0.0-0.2) 10/01/23 05:00 Nucleated RBCs # 0.0 /100WBC 09/30/23 12:21 Platelet Estimate Decreased (Normal) 10/01/23 05:00 Poikilocytosis 1+ H 10/01/23 05:00 Anisocytosis 1+ H 10/01/23 05:00 Macrocytosis 1+ H 10/01/23 05:00 Ovalocytes 1+ H 10/01/23 05:00 Sodium 136 mmol/L (136-145) 10/01/23 05:00 Potassium 4.7 mmol/L (3.5-5.1) 10/01/23 05:00 Chloride 102 mmol/L (98-107) 10/01/23 05:00 Carbon Dioxide 25 mmol/L (22-29) 10/01/23 05:00 Anion Gap 13.7 (5-19) 10/01/23 05:00 BUN 13 mg/dL (6-20) 10/01/23 05:00 Creatinine 0.7 mg/dL (0.7-1.2) 10/01/23 05:00 GFR Calculation 118.4 mL/min (90-130) 10/01/23 05:00 Glucose 302 mg/dL (65-115) H 10/01/23 05:00 POC Glucose 369 mg/dL (70-110) H 10/01/23 11:02 Calculated Osmolality 293 mOsm/kg (285-295) 10/01/23 05:00 Calcium 9.5 mg/dL (8.5-10.5) 10/01/23 05:00 Magnesium 1.8 mg/dL (1.7-2.3) 10/01/23 05:00 Total Bilirubin 0.9 mg/dL (0.15-1.2) 10/01/23 05:00 GGT 64 U/L (8-61) H 09/30/23 12:21 AST 22 U/L (0-40) 10/01/23 05:00 ALT 34 U/L (0-41) 10/01/23 05:00 Alkaline Phosphatase 137 U/L (40-130) H 10/01/23 05:00 Lactate Dehydrogenase 212 U/L (135-225) 09/30/23 12:21 Total Protein 7.1 g/dL (6.6-8.7) 10/01/23 05:00 Albumin 4.0 g/dL (3.5-5.2) 10/01/23 05:00 Globulin 3.1 g/dL (1.3-4.6) 10/01/23 05:00 Nasal Influ A H1 2009 PCR Not detected (NOT DETECT) 09/30/23 13:47 Adenovirus (PCR) Not detected (NOT DETECT) 09/30/23 13:47 C. pneumoniae DNA (PCR) Not detected (NOT DETECT) 09/30/23 13:47 Coronavirus 229E (PCR) Not detected (NOT DETECT) 09/30/23 13:47 Human Metapneumovir PCR Not detected (NOT DETECT) 09/30/23 13:47 Influenza A (H1) PCR Not detected (NOT DETECT) 09/30/23 13:47 Influenza A (H3) PCR Not detected (NOT DETECT) 09/30/23 13:47 Influenza Type A Ag negative (Negative) 09/30/23 12:14 Influenza Type A (PCR) Not detected (NOT DETECT) 09/30/23 13:47 Influenza Type B Ag negative (Negative) 09/30/23 12:14 Influenza Type B (PCR) Not detected (NOT DETECT) 09/30/23 13:47 M. pneumoniae (PCR) Not detected (NOT DETECT) 09/30/23 13:47 Parainfluenza 1 (PCR) Not detected (NOT DETECT) 09/30/23 13:47 Parainfluenza 2 (PCR) Not detected (NOT DETECT) 09/30/23 13:47 Parainfluenza 3 (PCR) Not detected (NOT DETECT) 09/30/23 13:47 Parainfluenza 4 (PCR) Not detected (NOT DETECT) 09/30/23 13:47 RSV Type A (PCR) Not detected (NOT DETECT) 09/30/23 13:47 RSV Type B (PCR) Not detected (NOT DETECT) 09/30/23 13:47 Entero/Rhino (PCR) Not detected (NOT DETECT) 09/30/23 13:47 SARS-CoV-2 (PCR) Not detected (NOT DETECT) 09/30/23 13:47 SARS-CoV-2 Ag (Rapid) negative (Negative) 09/30/23 12:14 Vitals Last Vital Signs Temp 98.0 F 10/01/23 11:23 Pulse 75 10/01/23 11:23 Resp 22 H 10/01/23 11:23 BP 159/72 10/01/23 11:23 Pulse Ox 97 10/01/23 11:23 O2 Del Method Room Air 10/01/23 11:23 Discharge Plan Discharge Patient Disposition: Home Condition: Fair Prescriptions: New levofloxacin 750 mg tablet 750 mg PO DAILY 5 Days Qty: 5 0RF Continued pantoprazole 40 mg tablet,delayed release (DR/EC) 40 mg PO DAILY@0700 Qty: 30 2RF ondansetron HCl 8 mg tablet 8 mg PO Q8H PRN (Reason: Nausea And Vomiting (2nd)) metformin 500 mg Tablet 1,000 mg PO BID zinc acetate 50 mg (zinc) Capsule 50 mg PO DAILY cetirizine [Zyrtec] 10 mg Tablet 10 mg PO DAILY prochlorperazine maleate [Compazine] 10 mg Tablet 10 mg PO BID PRN (Reason: Nausea) cyanocobalamin (vitamin B-12) [Vitamin B-12] 500 mcg Tablet 500 mcg PO DAILY ascorbic acid (vitamin C) [Vitamin C] 500 mg Tablet 500 mg PO DAILY gabapentin 300 mg Capsule 300 mg PO TID cholecalciferol (vitamin D3) [Vitamin D3] 25 mcg (1,000 unit) Capsule 25 mcg PO DAILY albuterol sulfate 90 mcg/actuation HFA aerosol inhaler 2 inh INHALATION Q4H PRN (Reason: shortness of breath or wheezing) Qty: 6.7 1RF metoprolol succinate 50 mg tablet extended release 24 hr 50 mg PO DAILY levothyroxine 25 mcg tablet 12.5 mcg PO DAILY levothyroxine 200 mcg tablet 200 mcg PO DAILY hydrocortisone 10 mg tablet See Rx Instructions .ROUTE .COMPLEX Rx Instructions: Take 15 mg in the morning and 20 mg in the afternoon. lisinopril 40 mg tablet 40 mg PO DAILY insulin glargine 100 unit/mL (3 mL) insulin pen 18 unit SUBCUT BEDTIME Eliquis 5 mg tablet 5 mg PO BID Lonsurf 20-8.19 mg tablet See Rx Instructions .ROUTE .COMPLEX Rx Instructions: TAKE 4 TABLETS BY MOUTH TWICE DAILY ON DAYS 1 THROUGH 5 AND DAYS 8 THROUGH 12 OF 28 DAY CYCLE. TAKE WITHIN 1 HOUR OF MORNING AND EVENING MEALS. Fiasp FlexTouch U-100 Insulin 100 unit/mL (3 mL) insulin pen See Rx Instructions .ROUTE .COMPLEX Rx Instructions: Inject 10 UNITS BEFORE MEALS along with sliding scale. max daily DOSE 60 units Discharge Orders: Discharge Order (Routine); Ordered 10/01/23 Ordered By: Nagi Zamora Referrals: [facility], oncology [Other] (As per appointment on Thu) Keisha Lebron FNP [Primary Care Provider] - 10/20/23 1:00 pm Discharge Diet: As Directed Patient Instructions: Levofloxacin (By mouth) (Levaquin, Levaquin Leva-haritha), Neutropenia (GEN), Neutropenic Precautions (GEN), Opioid Safety Activity Restrictions/Additional Instructions: As you still have neutropenia, absolute interval count 800, please maintain neutropenic precautions until recovery of your neutrophil counts can be confirmed by your primary provider and/your oncology team during our appointment on Thursday. During this time continue antibiotic coverage with Levaquin, this may be extended by your team when you see them if needed. Blood cultures were collected and pending. Continue hydrocortisone at 40 mg in the morning, 30 mg in the afternoon for the next 2 days, then decrease to your usual dose. Monitor blood pressures 3 times daily. Continue to monitor blood glucose, continue consistent carbohydrate diet, insulin both long-acting and sliding scale. Return to the hospital in case of any worsening or new concerning symptoms. Discharge Attestations Time Spent in Discharge Care*: greater than 30 min Quality Metrics Clinical Quality Measures [ No reported AMI, CVA or VTE this stay] Coding Level of Care Code 19398 Total time (in minutes) for Discharge: 55 Diagnoses Neutropenic fever D70.9; R50.81 Adrenal insufficiency E27.40
[2023-10-01 14:44] VITALS: BP 159/72; PULSE 75; RESP 22; TEMP 36.7; O2SAT 97
== END 2023-10-01 14:44 | disposition home or self-care (01) ==
LOC: ER 13:45 → MEDSURG 15:55
PROVIDERS: Admitting Provider Internal Medicine; Emergency Provider Emergency Medicine; PCP Nurse Practitioner Family; Visit Provider Internal Medicine
DX: D70.9 Neutropenia, unspecified (principal); R50.81 Fever presenting with conditions classified elsewhere; E27.40 Unspecified adrenocortical insufficiency; C18.9 Malignant neoplasm of colon, unspecified; C78.00 Secondary malignant neoplasm of unspecified lung; Z92.21 Personal history of antineoplastic chemotherapy; Z90.49 Acquired absence of other specified parts of digestive tract; I10 Essential (primary) hypertension; I95.9 Hypotension, unspecified; E11.9 Type 2 diabetes mellitus without complications; Z79.4 Long term (current) use of insulin; Z79.84 Long term (current) use of oral hypoglycemic drugs; T82.868A Thrombosis due to vascular prosthetic devices, implants and grafts, initial encounter
CPT/HCPCS: 36415; 36416; 71045; 74019; 76705; 80048; 80053; 82962; 82977; 83615; 83735; 84450; 84460; 85007; 85025; 87040; 87426; 87486; 87581; 87633; 87804; 96361; 96365; 96367; 96372; 96375; 99285; C9113; G0378; J0360; J1100; J1650; J1720; J1815; J2405; J3370; J3490; J7050; J7120

== ENCOUNTER 2023-11-08 04:12 | Emergency (ER) | payer BC, SELFPAY ==
[2023-11-08] VITALS (16 sets, daily range): BP systolic 118–157; BP diastolic 68–113; PULSE 68–83; RESP 15–20; TEMP 36.6–36.9; O2SAT 91–98; BMI 32.5
--- NOTE | 2023-11-08 04:14 | CTR_ITS ---
PROCEDURE INFORMATION: Exam: CT Head Without Contrast Exam date and time: 11/08/2023 4:13 AM Age: 53 years old Clinical indication: Stroke-like symptoms; Headache; RT upper extremity and RT lower extremity weakness; Additional info: Stroke symptoms TECHNIQUE: Imaging protocol: Computed tomography of the head without contrast. Radiation optimization: All CT scans at this facility use at least one of these dose optimization techniques: automated exposure control; mA and/or kV adjustment per patient size (includes targeted exams where dose is matched to clinical indication); or iterative reconstruction. Other technique: STROKE PROTOCOL was implemented. COMPARISON: CT head wo con* [id number] 12/14/2022 11:21 AM RADIATION DOSE METRICS: Total DLP (mGy-cm): 1130.19 FINDINGS: Brain: Several hyperdense intracranial masses are noted including a 1.5 cm lesion in the superior cerebellar vermis, a 2.2 cm lesion in the high right frontal lobe, a 2.2 cm lesion in the high left frontal lobe and few punctate lesions in the periventricular white matter. There is edema surrounding the largest frontal lobe lesions. No substantial mass effect or midline shift. Cerebral ventricles: No ventriculomegaly. Paranasal sinuses: Visualized sinuses are unremarkable. No fluid levels. Mastoid air cells: Visualized mastoid air cells are well aerated. Bones/joints: Unremarkable. No acute fracture. Soft tissues: Unremarkable. CT/CT head wo con* [id number] IMPRESSION: Multiple hyperdense intracranial masses are seen highly concerning for metastatic disease. The masses likely have some internal hemorrhage or mineralization. No substantial mass effect or midline shift. ASSESSMENT: ASPECTS ([facility] Stroke Program Early CT Score) is 10.
[2023-11-08] MEDS: tranexamic acid 1,000 MG/100 ML PREMIX 600 MG IV (04:41)
[2023-11-08] MEDS: levETIRAcetam 1,500 MG/100 ML PREMIX 400 MG IV (04:41)
[2023-11-08] MEDS: dexamethasone 10 mg/mL INJ IVP (04:41)
[2023-11-08 04:44] LABS: Basophils % 0.4 %; Eosinophils # 0.1 10^3/uL (0.0-0.8); Eosinophils % 0.8 %; Hematocrit 38.1 % (37-53); Lymphocytes # 4.8 10^3/uL (0.8-4.8); Lymphocytes % 62.3 %; Mean Corpuscular HGB Conc 31.5 g/dL (30-55); Mean Corpuscular Hemoglobin 32.5 pg (27-33); Mean Corpuscular Volume 103.3 fl (82-101); Mean Platelet Volume 10.1 fL (7.4-10.4); Monocytes # 0.5 10^3/uL (0.2-0.9); Neutrophils # 2.35 10^3/uL (1.8-7.7); Neutrophils % 30.4 %; Nucleated Red Blood Cells % 0 %; Platelet Count 218 10^3/cmm (157-399); Red Blood Count 3.69 10^6/uL (3.85-5.65); Red Cell Distribution Width 15.5 % (12.1-15.1); White Blood Count 7.71 10^3/uL (3.29-11.43)
--- NOTE | 2023-11-08 04:48 | W.ED.NEUROSD ---
HPI - Neuro Symptoms/Deficit General: Chief Complaint: Neuro Symptoms/Deficit Stated Complaint: STROKE Time Seen by Provider: 11/08/23 04:13 History of Present Illness: 53-year-old male with a history of colorectal cancer. He also has a history of anticoagulation evidently due to clotting in his port with potential pulmonary embolism. His last known well time was 8 PM or so. He awoke suddenly sometime around 4 AM with violent right arm shaking, right leg shaking, and substantial expressive aphasia. Symptoms are nearly resolved at this point. He is talking. His vision is normal. He does have a mild tremor to his right upper extremity. He has some paresthesia to the right upper extremity as well. He does not have a headache. He is not vomiting. Associated symptoms: Reports headache(s) and nausea; Deny chest pain or vomiting Review of Systems Const: Denies: fever(s) or chills Eyes: Denies: change in vision ENMT: Denies: throat pain Card: Denies: chest pain Resp: Denies: dyspnea, productive cough or non-productive cough GI: Reports: nausea; Denies: abdominal pain or vomiting Musc: Denies: neck pain Neuro: Reports: headache(s) and numbness in extremities (mild right upper) PFSH ED PFSH: Medical History Adrenal insufficiency Lung metastases Colorectal cancer Surgical History History of tonsillectomy History of knee surgery Social History Smoking and tobacco/nicotine status: never used tobacco/nicotine Alcohol intake: never Substance/Drug Use: never Physical Exam Const: COMMON NORMALS: no acute distress, patient oriented x3 and alert GENERAL APPEARANCE: cooperative and ill appearing HENMT: COMMON NORMALS: normocephalic, atraumatic and Normal external nose present HEAD & SCALP: normocephalic and atraumatic FACE & SINUS: normal facial exam and face symmetric NOSE: Normal external nose present Eye: COMMON NORMALS: Equal, round and reactive pupils present and EOMs intact bilaterally PUPIL: Yes Equal, round and reactive pupils present Neck/C-Spine: GENERAL: Yes trachea midline Chest: CHEST: Yes Symmetrical chest wall rise Resp: COMMON NORMALS: normal respiratory effort, No retractions, No use of accessory muscles and clear to auscultation bilaterally AUSCULTATION: clear to auscultation bilaterally Cardio: COMMON NORMALS: regular rate and regular rhythm RATE: regular rate RHYTHM: regular rhythm GI: COMMON NORMALS: Normal to inspection, nondistended, normoactive bowel sounds present Extremity: COMMON NORMALS: no pedal edema Neuro: JENNA COMA SCALE: document GCS findings Jenna coma scale eye opening: Spontaneous Jenna coma scale verbal response: Orientated [place] coma scale motor response: Obey commands [place] coma scale total score: 15 COMMON NORMALS: patient oriented x3 SENSORIUM/ORIENTATION: Yes alert CRANIAL NERVES: Yes CN normal except as noted COORDINATION/BALANCE: [id number] test normal SPEECH: speech normal SENSORY EXAM: Yes extremities (mild loss right upper) MOTOR EXAM: Pronator motor function not present and Tremors during motor activity present (slight RUE) COORDINATION: [id number] test normal Psych: COMMON NORMALS: mental status grossly normal and speech normal SPEECH: Yes normal speech Skin: COMMON NORMALS: no rashes or lesions noted GENERAL SKIN EXAM: no rashes or lesions noted Course Vital Signs: Vital signs: Vital Signs Temperature 98.4 F 11/08/23 15:00 Pulse Rate 78 11/08/23 15:00 Respiratory Rate 16 11/08/23 15:00 Blood Pressure 129/79 11/08/23 15:00 Pulse Oximetry 94 11/08/23 15:00 Oxygen Delivery Me thod Nasal Cannula 11/08/23 15:00 Oxygen Flow Rate 3 11/08/23 15:00 MDM - Neuro Symptoms/Deficit Medical Decision Making CT scan shows multiple hyperdense intracranial masses concerning for metastatic disease with internal hemorrhage present. As the patient is on Eliquis, have ordered Andexxa. I have also ordered TXA and Keppra as his episode at home sounds seizure-like in nature. We do not have neurosurgery here. Spoke with [facility] in [place] which is one of our closest neurosurgery facilities. They are willing to take in transfer. They are deciding at this point whether he will be an ER transfer or neuro ICU transfer. Awaiting to speak to the hospitalist. Family is counseled. Currently we will his vital signs are stable. He is awake and talking. Air ambulance is or not able to fly including fixed wing at this point. He will have to go by ground transfer Spoke with the hospitalist at [facility] in [place]. He has accepted in transfer. No go to the neuro stepdown unit. Neurosurgery has viewed the films, and determined medical treatment at this point, and that that is the appropriate level of care. As of now, no beds are currently available. They will let us know when a bed is available and discharges happen after this morning. I expressed concern with this over an anticoagulated patient with hemorrhagic metastases. I then spoke to [facility] in [facility]. The patient gets his oncology care there. I spoke to the neurosurgeon. She agreed that medical treatment would be preferred. Recommendations are 4 mg of dexamethasone IV every 4 hours, Keppra 1 g twice daily. I spoke with the oncologist on-call. She is willing to take in transfer. They may do much prior to transfer, but no beds are available. They will let us know when a bed is available. I counseled the family. I let them know that when we do have a bed available, we will attempt air transfer at that point. Until that time, he will get the above medications here in the ER. On coming back from change of shift this evening, I am told that the patient ended up going to [facility], as there was still no beds available at either [facility] or [facility]. He went by her transfer this afternoon, and remained medically stable, awake, alert, and talking. Lab Data 11/08/23 04:15 11/08/23 04:[address] 11/08/23 04:14 IMPRESSION: Multiple hyperdense intracranial masses are seen highly concerning for metastatic disease. The masses likely have some internal hemorrhage or mineralization. No substantial mass effect or midline shift. ASSESSMENT: ASPECTS (Theresa Stroke Program Early CT Score) is 10. ADDENDUM: 11/08/23 0438 THIS REPORT CONTAINS FINDINGS THAT MAY BE CRITICAL TO PATIENT CARE. The findings were verbally communicated via telephone conference with NYDIA Low at 4:37 AM AGRONOMY TEACHER on 11/08/2023. The findings were acknowledged and understood. Laboratory Results WBC 7.71 10^3/uL (3.29-11.43) 11/08/23 04:15 RBC 3.69 10^6/uL (3.85-5.65) L 11/08/23 04:15 Hgb 12.00 g/dL (11.27-16.99) 11/08/23 04:15 Hct 38.1 % (37-53) 11/08/23 04:15 MCV 103.3 fl (82-101) H 11/08/23 04:15 MCH 32.5 pg (27-33) 11/08/23 04:15 MCHC 31.5 g/dL (30-55) 11/08/23 04:15 RDW 15.5 % (12.1-15.1) H 11/08/23 04:15 Plt Count 218 10^3/cmm (157-399) 11/08/23 04:15 MPV 10.1 fL (7.4-10.4) 11/08/23 04:15 Neut % (Auto) 30.4 % 11/08/23 04:15 Lymph % (Auto) 62.3 % 11/08/23 04:15 [place] % (Auto) 6.0 % 11/08/23 04:15 Eos % (Auto) 0.8 % 11/08/23 04:15 Baso % (Auto) 0.4 % 11/08/23 04:15 Neut # (Auto) 2.35 10^3/uL (1.8-7.7) 11/08/23 04:15 Lymph # (Auto) 4.8 10^3/uL (0.8-4.8) 11/08/23 04:15 [place] # (Auto) 0.5 10^3/uL (0.2-0.9) 11/08/23 04:15 Eos # (Auto) 0.1 10^3/uL (0.0-0.8) 11/08/23 04:15 Baso # (Auto) 0.0 10^3/uL (0.0-0.1) 11/08/23 04:15 Nucleated RBC % (auto) 0 % 11/08/23 04:15 Nucleated RBCs # 0.0 /100WBC 11/08/23 04:15 PT 15.20 SECONDS (12.1-14.9) H 11/08/23 04:15 INR 1.16 (0.8-1.2) 11/08/23 04:15 APTT 29.7 SECONDS (23.9-36.7) 11/08/23 04:15 Sodium 139 mmol/L (136-145) 11/08/23 04:15 Potassium 4.2 mmol/L (3.5-5.1) 11/08/23 04:15 Chloride 97 mmol/L (98-107) L 11/08/23 04:15 Carbon Dioxide 17 mmol/L (22-29) L 11/08/23 04:15 Anion Gap 29.2 (5-19) H 11/08/23 04:15 BUN 13 mg/dL (6-20) 11/08/23 04:15 Creatinine 0.9 mg/dL (0.7-1.2) 11/08/23 04:15 GFR Calculation 88.6 mL/min (90-130) L 11/08/23 04:15 Glucose 183 mg/dL (65-115) H 11/08/23 04:15 Calculated Osmolality 293 mOsm/kg (285-295) 11/08/23 04:15 Calcium 10.1 mg/dL (8.5-10.5) 11/08/23 04:15 Phosphorus 5.1 mg/dL (2.5-4.5) H 11/08/23 04:15 Magnesium 2.3 mg/dL (1.7-2.3) 11/08/23 04:15 Total Bilirubin 0.5 mg/dL (0.15-1.2) 11/08/23 04:15 AST 18 U/L (0-40) 11/08/23 04:15 ALT 19 U/L (0-41) 11/08/23 04:15 Alkaline Phosphatase 126 U/L (40-130) 11/08/23 04:15 Creatine Kinase 40 U/L (39-308) 11/08/23 04:15 C-Reactive Protein 27.7 mg/L (0.0-4.9) H 11/08/23 04:15 Total Protein 8.1 g/dL (6.6-8.7) 11/08/23 04:15 Albumin 4.0 g/dL (3.5-5.2) 11/08/23 04:15 Globulin 4.1 g/dL (1.3-4.6) 11/08/23 04:15 Urine Color Yellow (Yellow) 11/08/23 06:46 Urine Appearance Clear (CLEAR) 11/08/23 06:46 Urine pH 5 (5-7) 11/08/23 06:46 Ur Specific [place] 1.020 (1.005-1.030) 11/08/23 06:46 Urine Protein 1+ (Negative) H 11/08/23 06:46 Urine Glucose (UA) Norm (Normal) 11/08/23 06:46 Urine Ketones 1+ (Negative) H 11/08/23 06:46 Urine Blood 2+ (Negative) H 11/08/23 06:46 Urine Nitrate Negative (Negative) 11/08/23 06:46 Urine Bilirubin Neg (Negative) 11/08/23 06:46 Urine Urobilinogen Norm mg/dL (Negative) 11/08/23 06:46 Ur Leukocyte Esterase Negative (Negative) 11/08/23 06:46 Urine RBC 0-4 /hpf (0-2) H 11/08/23 06:46 Urine WBC Rare /hpf (0-5) 11/08/23 06:46 Ur Squamous Epith Cells None /hpf (0-5) 11/08/23 06:46 Amorphous Sediment Not Reportable 11/08/23 06:46 Urine Bacteria Trace /hpf (NONE) 11/08/23 06:46 HIV 1&2 Ab & HIV 1 Ag Non-reactive (Non-Reactiv) 11/08/23 04:15 HIV 1&2 Antibody Non-reactive (Non-Reactiv) 11/08/23 04:15 All radiology interpretation(s) finalized by discharge Critical Care Time Critical Care Time: Critical Care Time: Yes Total Critical Care Time: 45 Attestation: This case had a high probability of a clinically significant, sudden, or life threatening deterioration of this patient's condition which required my full and direct attention, intervention and personal management. Time is independent of any procedures performed Discharge Plan Discharge Patient Disposition: Xfer Short-Term Hosp Clinical Impression: Acute intracerebral hemorrhage, Metastasis to brain Condition: Serious Referrals: Keisha Lebron FNP [Primary Care Provider] - Coding Level of Care Code ED Metal Bed Assembler for Stevo Marie
[2023-11-08 04:59] LABS: INR 1.16 (0.8-1.2); Partial Thromboplastin Time 29.7 SECONDS (23.9-36.7)
[2023-11-08 05:03] LABS: Alanine Aminotransferase 19 U/L (0-41); Alkaline Phosphatase 126 U/L (40-130); Anion Gap 29.2 (5-19); Aspartate Amino Transferase 18 U/L (0-40); Blood Urea Nitrogen 13 mg/dL (6-20); C Reactive Protein 27.7 mg/L (0.0-4.9); Calcium 10.1 mg/dL (8.5-10.5); Carbon Dioxide 17 mmol/L (22-29); Chloride 97 mmol/L (98-107); Creatine Phosphokinase 40 U/L (39-308); Globulin 4.1 g/dL (1.3-4.6); Glomerular Filtration Rate 88.6 mL/min (90-130); Glucose 183 mg/dL (65-115); Magnesium 2.3 mg/dL (1.7-2.3); Osmolality Calculated 293 mOsm/kg (285-295); Phosphorus 5.1 mg/dL (2.5-4.5); Potassium 4.2 mmol/L (3.5-5.1); Sodium 139 mmol/L (136-145); Total Bilirubin 0.5 mg/dL (0.15-1.2); Total Protein 8.1 g/dL (6.6-8.7)
--- NOTE | 2023-11-08 05:26 | ECG_ITS ---
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 [id number]
[2023-11-08] MEDS: factor xa, inactivated-zhzo 800 MG in empty flexible container 1 EACH, non-DEHP filter ... 180 MG IV (05:41)
[2023-11-08] MEDS: morphine 4 mg/mL SDV 1 mL IVP (06:27)
[2023-11-08] MEDS: ondansetron 2 mg/ML SDV 2 mL 4 MG IVP (06:27)
[2023-11-08] MEDS: water for injection-sterile SDV 10 mL 80 ML IVP (06:40)
[2023-11-08 07:10] LABS: Urine Appearance Clear (CLEAR); Urine Color Yellow (Yellow)
[2023-11-08 07:11] LABS: Add Urine Culture? No; Add Urine Microscopic? YES; Bacteria Urine TRACE /hpf; Bilirubin Urine Neg (Negative); Blood Urine 2+ (Negative); Glucose Urine UA Norm (Normal); Ketones Urine 1+ (Negative); Leukocyte Esterase Urine Negative (Negative); Nitrate Urine Negative (Negative); Protein Urine 1+ (Negative); RBC Urine 0-4 /hpf (0-2); Urobilinogen Urine Norm (Negative); WBC Urine RARE /hpf (0-5); pH Urine 5 (5-7)
--- NOTE | 2023-11-08 07:37 | PC.PHAR ---
SPOUSE STATES HYDROCORTISONE 10 MG CHANGED TO 15 MG IN AM AND 15 MG IN AFTERNOON. REQUESTED BUPROPION XL 150MG AND FLUOXETINE 20 MG BE ADDED TO ALLERGY LIST DUE TO SEVERE SODIUM DEPLETION AFTER TAKING. 11/08/23
[2023-11-08] MEDS: dexamethasone 4 mg/mL INJ IVP ×2 (08:34→12:11)
[2023-11-08] MEDS: labetalol 5 mg/mL SDV 20mL 10 MG IVP (12:11)
[2023-11-08] MEDS: levETIRAcetam 1,000 MG/100 ML PREMIX 400 MG IV (14:25)
[2023-11-08 19:38] LABS: HIV 1 & 2 Antibody Non-Reactive (Non-Reactiv); HIV 1 & 2 Antigen Non-Reactive (Non-Reactiv)
[2023-11-08 20:36] LABS: Hepatitis B Surface Antigen Non-Reactive (Nonreactive); Hepatitis C Virus Antibody Non-Reactive (Nonreactive)
[2023-11-11 00:41] LABS: Hepatitis BE Antibody NON-REACTIVE (NON-REACTIVE)
== END 2023-11-08 16:00 | disposition short-term general hospital (02) ==
PROVIDERS: Emergency Provider Emergency Medicine; PCP Nurse Practitioner Family
DX: I61.9 Nontraumatic intracerebral hemorrhage, unspecified (principal); C79.31 Secondary malignant neoplasm of brain; Z85.038 Personal history of other malignant neoplasm of large intestine; Z85.118 Personal history of other malignant neoplasm of bronchus and lung
CPT/HCPCS: 70450; 80053; 81001; 82550; 83735; 84100; 85025; 85610; 85730; 86140; 86707; 86803; 87340; 87806; 93005; 96365; 96366; 96367; 96375; 96376; 99291; J1100; J1953; J2270; J2405; J3490; J7169